=== PATIENT | female | born 1950 | race Caucasian/White ===

== ENCOUNTER 2017-01-17 17:39 | Inpatient (IN) | payer MEDICARE, MEDICAID, OTHER ==
[~2017-01-17] VITALS: Ht 157.5 cm; Wt 47.1 kg
[~2017-01-17 17:39] MED LIST: ASPI81TA11 PO; BUPR100T4 PO; FERR325T PO; FLUO-1 PO; FOSA70TA PO; GABA100C4 PO; MIDO10TA PO; MORP1TAB25 PO; PERC10TA27 PO; POTA20TA3 PO; PRAV80TA2 PO; SODI325T PO; TRAZ100T4 PO; VALA1TAB PO; shower chair
[2017-01-17 17:42] VITALS: BP 155/81; PULSE 121; RESP 15; TEMP 97.5; O2SAT 100
--- NOTE | 2017-01-17 17:51 | PD ---
HPI Chief Complaint: Abdominal Pain Time Seen by Provider: 17:51 Travel History International Travel<30 days: No Contact w/Intl Traveler<30days: No Traveled to known affect area: No History of Present Illness HPI 66-year-old female came to the emergency room with history of vomiting for 5 days along with vague abdominal pain. Patient says she is unable to hold anything down. She has an ileostomy that was done 6 months ago. Patient was tachycardic in triage with a heart rate of 121. She points out to her entire abdomen saying the location of the pain. No history of diarrhea. In fact her output from the ileostomy has been normal as per her. She describes the color of the vomitus to be brownish to greenish. PFSH Past Medical History Narrative Medical List of her past medical, social and family history was reviewed from the nursing note. Hx Anticoagulant Therapy: Yes Anxiety: Yes Depression: Yes Diminished Hearing: No Deep Vein Thrombosis: Yes Hypertension: Yes Past Surgical History Abdominal Surgery: Yes (COLOSTOMY) Hysterectomy: Yes Other Surgery: Yes (STENT IN KIDNEY ) Social History Alcohol Use: No Tobacco Use: No Substance Use: No Allergies-Medications (Allergen,Severity, Reaction): Coded Allergies: *MDRO Multi-Drug Resistant Organism (Verified Adverse Reaction, Unknown, ) MRSA PCR screen (nares) POSITIVE - 07/26/16 Comments List of allergies reviewed from the nursing note. Reported Meds & Prescriptions Reported Meds & Active Scripts Active Percocet (Oxycodone-Acetaminophen) 10-325 mg Tab 1 Tab PO Q6H PRN Midodrine 10 Mg Tab 10 Mg PO BID PRN Gabapentin 100 Mg Cap 100 Mg PO BID Sodium Bicarbonate 325 Mg Tab 325 Mg PO Q12HR Potassium Chloride Microencaps 20 Meq Tab 40 Meq PO Q12HR Ferrous Sulfate 325 Mg Tab 325 Mg PO DAILY Morphine ER (Morphine Sulfate) 30 Mg Tab 30 Mg PO BID Trazodone (Trazodone HCl) 100 Mg Tab 100 Mg PO HS [shower chair] Ut DAILY Aspirin EC (Aspirin) 81 Mg Tabdr 81 Mg PO DAILY Valacyclovir (Valacyclovir HCl) 1 Gm Tab 1,000 Mg PO BID Bupropion HCl 100 Mg Tab 100 Mg PO BID Prozac (Fluoxetine HCl) 10 Mg Cap 10 Mg PO DAILY Pravastatin 80 Mg Tab 80 Mg PO HS Reported Pravastatin 80 Mg Tab 80 Mg PO DAILY Amlodipine (Amlodipine Besylate) 10 Mg Tab 10 Mg PO DAILY Fosamax (Alendronate Sodium) 70 Mg Tab 70 Mg PO Q7D TAKES ON SUNDAYS Narrative Medication List of her home medications reviewed from the nursing note. Review of Systems Except as stated in HPI: all other systems reviewed are Neg Physical Exam Narrative GENERAL: Awake, alert, anxious, mild distress, emaciated SKIN: Warm and dry. HEAD: Atraumatic. Normocephalic. EYES: Pupils equal and round. No scleral icterus. No injection or drainage. ENT: No nasal bleeding or discharge. Dry and coated mucus membrane. NECK: Trachea midline. No JVD. CARDIOVASCULAR: Regular rate and rhythm. No murmur appreciated. RESPIRATORY: No accessory muscle use. Clear to auscultation. Breath sounds equal bilaterally. GASTROINTESTINAL: Abdomen soft, non-tender, nondistended. Hepatic and splenic margins not palpable, ileostomy MUSCULOSKELETAL: No obvious deformities. No clubbing. No cyanosis. No edema. NEUROLOGICAL: Awake and alert. No obvious cranial nerve deficits. Motor grossly within normal limits. Normal speech. PSYCHIATRIC: Appropriate mood and affect; insight and judgment normal. Data Data Last Documented VS Vital Signs Date Time Temp Pulse Resp B/P Pulse Ox O2 Delivery O2 Flow Rate FiO2 01/17/17 20:56 17 01/17/17 19:00 106 158/97 94 Room Air 01/17/17 17:42 97.5 Orders Complete Blood Count With Diff (01/17/17 18:03) Comprehensive Metabolic Panel (01/17/17 18:03) Prothrombin Time / Inr (Pt) (01/17/17 18:03) Act Partial Throm Time (Ptt) (01/17/17 18:03) Urinalysis - C+S If Indicated (01/17/17 18:03) Ct Abd/Pel W/O Iv Contrast (01/17/17 18:03) Iv Access Insert/Monitor (01/17/17 18:03) Ecg Monitoring (01/17/17 18:03) Oximetry (01/17/17 18:03) Ondansetron Inj (Zofran Inj) (01/17/17 18:15) Sodium Chlor 0.9% 1000 Ml Inj (Ns 1000 M (01/17/17 18:03) Sodium Chloride 0.9% Flush (Ns Flush) (01/17/17 18:15) Morphine Inj (Morphine Inj) (01/17/17 18:15) Lactic Acid (01/17/17 18:03) Blood Culture (01/17/17 18:03) Sodium Chlor 0.9% 1000 Ml Inj (Ns 1000 M (01/17/17 19:15) Oxycodone-Acetamin 7.5-325 Mg (Percocet (01/17/17 21:45) Admit Order (Ed Use Only) (01/17/17 21:36) Labs Laboratory Tests Test 01/17/17 01/17/17 19:00 19:30 Sodium Level 136 MEQ/L Potassium Level 3.8 MEQ/L Chloride Level 114 MEQ/L Carbon Dioxide Level 8.8 MEQ/L Anion Gap 13 MEQ/L Blood Urea Nitrogen 62 MG/DL Creatinine 3.25 MG/DL Estimat Glomerular Filtration 14 ML/MIN Rate Random Glucose 134 MG/DL Calcium Level 8.9 MG/DL Total Bilirubin 0.4 MG/DL Aspartate Amino Transf 7 U/L (AST/SGOT) Alanine Aminotransferase 14 U/L (ALT/SGPT) Alkaline Phosphatase 118 U/L Troponin I 0.02 NG/ML Total Protein 9.0 GM/DL Albumin 4.7 GM/DL Lipase 724 U/L White Blood Count 16.4 TH/MM3 Red Blood Count 5.24 MIL/MM3 Hemoglobin 16.4 GM/DL Hematocrit 53.9 % Mean Corpuscular Volume 102.9 FL Mean Corpuscular Hemoglobin 31.3 PG Mean Corpuscular Hemoglobin 30.4 % Concent Red Cell Distribution Width 16.6 % Platelet Count 275 TH/MM3 Mean Platelet Volume 8.6 FL Neutrophils (%) (Auto) 85.7 % Lymphocytes (%) (Auto) 9.4 % Monocytes (%) (Auto) 4.8 % Eosinophils (%) (Auto) 0.0 % Basophils (%) (Auto) 0.1 % Neutrophils # (Auto) 14.0 TH/MM3 Lymphocytes # (Auto) 1.5 TH/MM3 Monocytes # (Auto) 0.8 TH/MM3 Eosinophils # (Auto) 0.0 TH/MM3 Basophils # (Auto) 0.0 TH/MM3 CBC Comment DIFF FINAL Differential Comment Prothrombin Time 10.6 SEC Prothromb Time International 1.0 RATIO Ratio Activated Partial 24.6 SEC Thromboplast Time Lactic Acid Level 2.0 mmol/L MDM Medical Decision Making Medical Screen Exam Complete: Yes Emergency Medical Condition: Yes Medical Record Reviewed: Yes Differential Diagnosis Small bowel obstruction, acute gastritis, acute gastroenteritis, electrolyte abnormalities, dehydration Narrative Course 7:12 PM awaiting for the blood test result. The CAT scan was done and resulted. Does not show any small bowel obstruction. I suspect severe dehydration. Case has been signed over to the oncoming ER physician. Procedures EKG Prior to Arrival: Denise Wright MD Jan 17, 2017 17:51
[2017-01-17] MEDS ORDERED: SODIUM CHLOR 0.9% 1000 ML INJ 1,000 ML IV SCH (18:03)
[2017-01-17] MEDS ORDERED: MORPHINE SULFATE 4 MG/ML INJ IV PUSH ONE (18:15)
[2017-01-17] MEDS ORDERED: ONDANSETRON HCL 4 MG/2 ML VIAL IVP ONE (18:15)
[2017-01-17] MEDS ORDERED: SODIUM CHLORIDE 0.9% FLUSH 5 ML FLUSH IVF PRN (18:15)
[2017-01-17 19:00] VITALS: BP 158/97; PULSE 106; RESP 13; RESP 17; O2SAT 94
--- NOTE | 2017-01-17 19:01 | RADRPT ---
EXAM DATE/TIME: 01/17/2017 18:13 [facility] COMPARISON: No previous studies available for comparison. INDICATIONS : Abdomen pain. ORAL CONTRAST: No oral contrast ingested. RADIATION DOSE: 9.96 CTDIvol (mGy) MEDICAL HISTORY : Deep venous thrombosis. Chronic obstructive pulmonary disease. Renal disease. SURGICAL HISTORY : Appendectomy. Hysterectomy.Colostomy. ENCOUNTER: Initial ACUITY: 4 - 6 days PAIN SCALE: 5/10 LOCATION: Bilateral abdomen. TECHNIQUE: Volumetric scanning of the abdomen and pelvis was performed. Using automated exposure control and ad justment of the mA and/or kV according to patient size, radiation dose was kept as low as reasonably achievable to obtain optimal diagnostic quality images. FINDINGS: Compare July 2016. Lung bases remain clear except for minimal linear scarring. Advanced degenera tive change in lumbar spine with a mild rotatory levoscoliosis. Stable compression deformity at L1. Again seen is some cystic change in the liver. Spleen, adrenals and pancreas unremarkable. Previous c holecystectomy. Extensive bilateral nephrocalcinosis again noted with an atrophic left kidney. There is an ostomy in the right lower quadrant. Staple line present in the rectum. No bowel obstructi on. No free air or free fluid. CONCLUSION: 1. No acute findings compared with July 2016. No obstruction, free fluid or free air. Ostomy rig ht lower quadrant. Jerald Lau MD on January 17, 2017 at 18:53 Board Certified Radiologist. This report was verified electronically.
[2017-01-17] MEDS ORDERED: AMLO10TA2 PO (19:10)
[2017-01-17] MEDS ORDERED: PRAV80TA2 PO (19:10)
[2017-01-17] MEDS ORDERED: SODIUM CHLOR 0.9% 1000 ML INJ 1,000 ML IV ONE (19:15)
[2017-01-17 19:33] LABS: ANION GAP 13 MEQ/L (5-15); AST (GOT) 7 U/L (15-37); BICARBONATE 8.8 MEQ/L (21.0-32.0); BLOOD UREA NITROGEN 62 MG/DL (7-18); CHLORIDE 114 MEQ/L (98-107); GLOMERULAR FILTRATION RATE 14 ML/MIN (>89); POTASSIUM 3.8 MEQ/L (3.5-5.1); SODIUM (NA) 136 MEQ/L (136-145)
[2017-01-17 19:36] LABS: ALKALINE PHOSPHATASE 118 U/L (45-117); ALT (GPT) 14 U/L (10-53); TOTAL BILIRUBIN ADULT 0.4 MG/DL (0.2-1.0)
[2017-01-17 19:43] LABS: BASOPHIL % 0.1 % (0.0-2.0); HEMATOCRIT 53.9 % (35.0-46.0); HEMO FLAGS DIFF FINAL; LYMPH % 9.4 % (9.0-44.0); LYMPHOCYTE # 1.5 TH/MM3 (1.0-4.8); MEAN CELL VOLUME 102.9 FL (80.0-100.0); MEAN CORPUSCULAR HEMOGLOBIN 31.3 PG (27.0-34.0); MEAN CORPUSCULAR HGB CONC 30.4 % (32.0-36.0); MONO % 4.8 % (0.0-8.0); NEUT % 85.7 % (16.0-70.0); PLATELET COUNT 275 TH/MM3 (150-450); RED BLOOD COUNT 5.24 MIL/MM3 (4.00-5.30); RED CELL DISTRIBUTION WIDTH 16.6 % (11.6-17.2); WHITE BLOOD COUNT 16.4 TH/MM3 (4.0-11.0)
[2017-01-17 20:04] LABS: APTT (PATIENT) 24.6 SEC (24.3-30.1); PROTHROMBIN TIME - PATIENT 10.6 SEC (9.8-11.6)
--- NOTE | 2017-01-17 21:44 | PD ---
Data Data Last Documented VS Vital Signs Date Time Temp Pulse Resp B/P Pulse Ox O2 Delivery O2 Flow Rate FiO2 01/17/17 20:56 17 01/17/17 19:00 106 158/97 94 Room Air 01/17/17 17:42 97.5 Orders Complete Blood Count With Diff (01/17/17 18:03) Comprehensive Metabolic Panel (01/17/17 18:03) Prothrombin Time / Inr (Pt) (01/17/17 18:03) Act Partial Throm Time (Ptt) (01/17/17 18:03) Urinalysis - C+S If Indicated (01/17/17 18:03) Ct Abd/Pel W/O Iv Contrast (01/17/17 18:03) Iv Access Insert/Monitor (01/17/17 18:03) Ecg Monitoring (01/17/17 18:03) Oximetry (01/17/17 18:03) Ondansetron Inj (Zofran Inj) (01/17/17 18:15) Sodium Chlor 0.9% 1000 Ml Inj (Ns 1000 M (01/17/17 18:03) Sodium Chloride 0.9% Flush (Ns Flush) (01/17/17 18:15) Morphine Inj (Morphine Inj) (01/17/17 18:15) Lactic Acid (01/17/17 18:03) Blood Culture (01/17/17 18:03) Sodium Chlor 0.9% 1000 Ml Inj (Ns 1000 M (01/17/17 19:15) Oxycodone-Acetamin 7.5-325 Mg (Percocet (01/17/17 21:45) Labs Laboratory Tests Test 01/17/17 01/17/17 19:00 19:30 White Blood Count 16.4 TH/MM3 Red Blood Count 5.24 MIL/MM3 Hemoglobin 16.4 GM/DL Hematocrit 53.9 % Mean Corpuscular Volume 102.9 FL Mean Corpuscular Hemoglobin 31.3 PG Mean Corpuscular Hemoglobin 30.4 % Concent Red Cell Distribution Width 16.6 % Platelet Count 275 TH/MM3 Mean Platelet Volume 8.6 FL Neutrophils (%) (Auto) 85.7 % Lymphocytes (%) (Auto) 9.4 % Monocytes (%) (Auto) 4.8 % Eosinophils (%) (Auto) 0.0 % Basophils (%) (Auto) 0.1 % Neutrophils # (Auto) 14.0 TH/MM3 Lymphocytes # (Auto) 1.5 TH/MM3 Monocytes # (Auto) 0.8 TH/MM3 Eosinophils # (Auto) 0.0 TH/MM3 Basophils # (Auto) 0.0 TH/MM3 CBC Comment DIFF FINAL Differential Comment Sodium Level 136 MEQ/L Potassium Level 3.8 MEQ/L Chloride Level 114 MEQ/L Carbon Dioxide Level 8.8 MEQ/L Anion Gap 13 MEQ/L Blood Urea Nitrogen 62 MG/DL Creatinine 3.25 MG/DL Estimat Glomerular Filtration 14 ML/MIN Rate Random Glucose 134 MG/DL Calcium Level 8.9 MG/DL Total Bilirubin 0.4 MG/DL Aspartate Amino Transf 7 U/L (AST/SGOT) Alanine Aminotransferase 14 U/L (ALT/SGPT) Alkaline Phosphatase 118 U/L Total Protein 9.0 GM/DL Albumin 4.7 GM/DL Prothrombin Time 10.6 SEC Prothromb Time International 1.0 RATIO Ratio Activated Partial 24.6 SEC Thromboplast Time Lactic Acid Level 2.0 mmol/L [facility] Medical Record Reviewed: Yes Supervised Visit with DASHA: No Narrative Course CBC & BMP Diagram 01/17/17 19:00 LFTs normal Lactic acid 2.0 Coags 10.6 / 1.0 / 24.6 Last 24 hours Impressions Abdomen/Pelvis CT 01/17/17 1803 Signed Impressions: Service Date/Time: Tuesday, January 17, 2017 18:13 - CONCLUSION: 1. No acute findings compared with July 2016. No obstruction, free fluid or free air. Ostomy right lower quadrant. Jeradl Lau MD Patient has acute on chronic renal insufficiency. She'll be admitted for treatment of kidney disease of indeterminate etiology right now. Urinalysis at time of admission is not yet available. Patient admitted to the family medicine service. D/w Dr Carreon. Admit to Dr Solomon. Pt asked for percocet or morphine upon reassessment at 930pm by me; the former was ordered. Pt otherwise appeared reasonably stable. Diagnosis Primary Impression: Acute on chronic renal insufficiency Additional Impressions: Prerenal azotemia Nausea & vomiting Qualified Code: R11.2 - Non-intractable vomiting with nausea, unspecified vomiting type Admitting Information Admitting Physician Requests: Admit Ervin Quiroz MD Jan 17, 2017 21:44
[2017-01-17] MEDS ORDERED: oxyCODONE/ACETAMINOPHEN 7.5 MG/325 MG TAB PO ONE (21:45)
--- NOTE | 2017-01-17 21:50 | HHI.HP ---
HPI Service Family Medicine Primary Care Physician Non-Staff Admission Diagnosis Acute on Chronic Renal Failure; N/V Diagnoses: International Travel<30 Days: No Contact w/Intl Traveler<30days: No Known Affected Area: No History of Present Illness Mrs. Walker is a pleasant 66 y/o female, who presents to [facility] with 6 days of nausea and vomiting (Thursday01/10/2017). Her symptoms started with generalized fatigue. Then, gradually became nauseous over the next several days. Her first episode of emesis was 6 days ago. During the beginning of her symptoms, she was vomiting 2-3 x per day. The emesis was described as clear and green in color. She reports small amounts of emesis since this time. For a couple of days she did not vomit but did feel nauseous, and had dry heaves. She has a colostomy bag, and this has been causing her discomfort for 6 months. This pain has been getting worse over the past several weeks. Her current abdominal pain is located over her umbilicus, and suprapubic. The pain is a 8/ 10 pain, constant. During the past 6 days she reports difficulty even drinking fluids. She denies using antibiotics recently. ROS: Fevers (subjective, chills+), sometimes gets blurry vision, nasal congestion, less frequent urination. Denies sore throat, shortness of breath, chest pain, headaches, no palpitations , no dysuria, no unilateral weakness or numbness, denies rashes. She denies pets. David the outreach representative of the house has not felt well. Stool output -- some today, minimal non bloody. Bad food -- denies. Ever happen before -- denies. No new medications. (Augusto Glass MD R2) Review of Systems Other as per HPI (Augusto Glass MD R2) Past Family Social History Past Medical History PMH: Degenerative disc disease Recent infection with shingles (02/2015) Chronic renal insufficiency related to frequent episodes of pyelonephritis HTN Hx PID when she was in her 20s Nephrolithiasis PSH: Corrective strabismus surgery at 4yo Tonsillectomy Appendectomy D&C after miscarriage in high school Hysterectomy to treat severe PID Nephrostomy tube placement and removal FH: paternal mother from unknown cancer in 50s mother and maternal aunt from unknown cancer in 50s brother from unknown cancer 54yo SocHx: Prior tobacco use: started at 15yo (smoked 3ppd) until Sep 2011 No alcohol use. No drug use. No children. (Augusto Glass MD R2) Allergies: Coded Allergies: *MDRO Multi-Drug Resistant Organism (Verified Adverse Reaction, Unknown, ) MRSA PCR screen (nares) POSITIVE - 07/26/16 Physical Exam Vital Signs Vital Signs Date Time Temp Pulse Resp B/P Pulse Ox O2 Delivery O2 Flow Rate FiO2 01/17/17 20:56 17 01/17/17 19:00 106 13 158/97 94 Room Air 01/17/17 19:00 17 94 Room Air 01/17/17 17:42 97.5 121 15 155/81 100 Physical Exam GENERAL: Pale-appearing, fatigued, however alert and oriented to person place and time. SKIN: Possible eschars on her lower extremities, skin intact, no sacral ulcers. HEAD: Extraocular eye movements were intact, pupils are equal round and reactive , no tenderness to the scalp, no tenderness to C-spine. EYES: Pupils equal round and reactive. Extraocular motions intact. No scleral icterus. No injection or drainage. ENT: Very dry mucous membranes, no erythema or exudates on pharyngeal exam. CARDIOVASCULAR: Faint heart sounds, tachycardic, regular rate, faint murmur over right sternal border. RESPIRATORY: Clear to auscultation. Breath sounds equal bilaterally. No wheezes , rales, or rhonchi. GASTROINTESTINAL: Ileostomy bag in place over the right upper quadrant. Surrounding skin was intact without erythema. No warmth surrounding the ostomy bag. Approximately 50 cc of output. Her stomach was diffusely tender, however had no rebound tenderness or voluntary/involuntary guarding. NEUROLOGICAL: Awake and alert. Cranial nerves II through XII intact. Motor and sensory grossly within normal limits. Five out of 5 muscle strength in all muscle groups. Normal speech. Laboratory Laboratory Tests Test 01/17/17 01/17/17 19:00 19:30 White Blood Count 16.4 Red Blood Count 5.24 Hemoglobin 16.4 Hematocrit 53.9 Mean Corpuscular Volume 102.9 Mean Corpuscular Hemoglobin 31.3 Mean Corpuscular Hemoglobin 30.4 Concent Red Cell Distribution Width 16.6 Platelet Count 275 Mean Platelet Volume 8.6 Neutrophils (%) (Auto) 85.7 Lymphocytes (%) (Auto) 9.4 Monocytes (%) (Auto) 4.8 Eosinophils (%) (Auto) 0.0 Basophils (%) (Auto) 0.1 Neutrophils # (Auto) 14.0 Lymphocytes # (Auto) 1.5 Monocytes # (Auto) 0.8 Eosinophils # (Auto) 0.0 Basophils # (Auto) 0.0 CBC Comment DIFF FINAL Differential Comment Sodium Level 136 Potassium Level 3.8 Chloride Level 114 Carbon Dioxide Level 8.8 Anion Gap 13 Blood Urea Nitrogen 62 Creatinine 3.25 Estimat Glomerular Filtration 14 Rate Random Glucose 134 Calcium Level 8.9 Total Bilirubin 0.4 Aspartate Amino Transf 7 (AST/SGOT) Alanine Aminotransferase 14 (ALT/SGPT) Alkaline Phosphatase 118 Total Protein 9.0 Albumin 4.7 Prothrombin Time 10.6 Prothromb Time International 1.0 Ratio Activated Partial 24.6 Thromboplast Time Lactic Acid Level 2.0 Date/Time Procedure Status Source Growth 01/17/17 19:30 Aerobic Blood Culture Received Blood Peripheral Pending 01/17/17 19:30 Anaerobic Blood Culture Received Blood Peripheral Pending (Augusto Glass MD R2) Result Diagram: 01/17/17 1900 01/17/17 1900 Imaging Last 72 hours Impressions Abdomen/Pelvis CT 01/17/17 1803 Signed Impressions: Service Date/Time: Tuesday, January 17, 2017 18:13 - CONCLUSION: 1. No acute findings compared with July 2016. No obstruction, free fluid or free air. Ostomy right lower quadrant. Jerald Lau MD (Augusto Glass MD R2) Septic Shock Reassessment Heart: Regular rate and rhythm (Augusto Glass MD R2) Assessment and Plan Assessment and Plan Ms. Rogers is a very pleasant 66-year-old female, presenting with 6 days of abdominal pain, nausea, and persistent vomiting. On admission she was found to be in acute renal failure, with a creatinine of 3.25 (baseline 1.5). The lipase level was also elevated at 724 and she had a leukocytosis of 16.4 thousand. She received 2 L of IV fluid, 4 mg IV morphine, and an abdominal CT that was unremarkable. She will be admitted to the family medicine team B, with a presumptive diagnosis of pancreatitis, gastroenteritis, as well as acute on chronic renal failure. Code Status Full Code (Augusto Glass MD R2) Attending Attestation The patient has been seen and examined. The chart and all resident notes have been reviewed. I agree that inpatient care is appropriate and that a two midnight stay is expected for the reasons documented in the resident history and physical. I have discussed this with the resident and certify the resident s order for inpatient admission. All systems reviewed and neg except as stated. Patient seen and examined on 01/18/17. Case reviewed and discussed with the resident team. Please refer to resident H&P for further details regarding HPI, ROS, PMH, SurgHx , FH and SocHx. In summary, patient is a 66yoF with multiple medical comorbidities including history of complicated diverticulitis requiring ileostomy placement, multiple admissions for severe electrolyte disturbances and hyperchloremic metabolic acidosis suspected to secondary to loss through the ileostomy, DVT secondary due to anti-phospholipid antibody syndrome, chronic kidney disease stage III now admitted with severe electrolyte disturbance and acidosis. Patients presentation to the hospital was preceded by nearly a week of nausea and vomiting with progressive weakness. GENERAL: Thin female, appearing weak, older than stated age. SKIN: Warm and dry. No rash HEAD: Normocephalic. AT EYES: No scleral icterus. No injection or drainage. ENT: OP clear. MM slightly dry NECK: Supple, trachea midline. No JVD or lymphadenopathy. CARDIOVASCULAR: Regular rate and rhythm without murmurs, gallops, or rubs. RESPIRATORY: Breath sounds equal bilaterally. No accessory muscle use. GASTROINTESTINAL: Abdomen soft, non-tender, nondistended. Ileostomy in place MUSCULOSKELETAL: No cyanosis, or edema. No calf tenderness BACK: Nontender without obvious deformity. No CVA tenderness. NEURO: Awake and alert. Normal speech. CN grossly intact. Last Impressions Head CT 01/17/173 Signed Impressions: Service Date/Time: Tuesday, January 17, 2017 23:21 - CONCLUSION: No evidence of acute intracranial pathology. No masses are identified. Sushant Woods MD Abdomen/Pelvis CT 01/17/17 1803 Signed Impressions: Service Date/Time: Tuesday, January 17, 2017 18:13 - CONCLUSION: 1. No acute findings compared with July 2016. No obstruction, free fluid or free air. Ostomy right lower quadrant. Jerald Lau MD Chest X-Ray 01/17/17 0000 Signed Impressions: Service Date/Time: Wednesday, January 18, 2017 00:20 - CONCLUSION: 1. No acute cardiopulmonary disease. 2. Possible nodule left midlung. CT scan is recommended for further evaluation if clinically indicated. Sushant Woods MD 66yoF admitted with: Severe acidosis, hyperchloremic metabolic Intractable N/V Complicated diverticulitis requiring ileostomy Anti-phospholipid antibody syndrome with DVT HTN with recent hypotension Chronic pain Depression Tobacco Dependence, now in remission Falls at home COPD Plan: IVF resuscitation Empiric antibiotic therapy Serial BMPs Replete electrolytes as needed Renal ultrasound Appreciate expertise of consultants. Follow urine culture and blood cultures Resume home meds as appropriate Patient seen and examined. Case reviewed and discussed Agree with plan of care as discussed with me and documented in the resident note. (Ana Solomon MD) Problem List: (1) Nausea Status: Acute Plan: Patient was 6 days of persistent nausea, clear, bilious emesis. CT of the abdomen showed: "No acute findings compared with July 2016." Lipase was elevated at 724. A likely diagnosis at this time includes pancreatitis, gastroenteritis (viral versus bacterial), subdural hematoma/head trauma, urinary tract infection/intra-abdominal infection. PLAN: -Aggressive IV rehydration: Has gotten 2 L bolus normal saline, we will start 1.5 times maintenance 135 ml/hr NS. Recent echo in June 2016 showed an EF of 55%. -Pain relief with morphine 2 mg every 3 hours pain 1-5, Dilaudid 0.5 mg pain 6-10 (at home she gets 60 mg of morphine daily, as well as 40 mg of Oxycodone -- > equivalent would be 6 mg IV Dilaudid daily). We will be cautious given her acute on chronic kidney disease. -Treat with empiric antibiotics with ciprofloxacin (renally dosed) (01/17 --) , and Flagyl (01/17 --) -NPO -Stool studies -Repeat lactic acid every 4 hours, repeat BMP every 4 hours. As well as a venous blood gas 1. -CT of the head is pending, given recent fall approximately 1 and 1/2 weeks ago. (2) COPD (chronic obstructive pulmonary disease) Status: Chronic Plan: Albuterol 2.5 mg inhaler q 2 hr prn (3) KANDIS (acute kidney injury) Status: Acute Plan: Baseline creatinine level was 1.3-1.5 in September 2016. Creatinine on admission was 3.25, with a BUN of 62. Suspect severe dehydration given persistent vomiting, and acute on chronic renal failure. Repeat BMP in 4 hours after 2 L bolus. Suspect that the kidney function will improve. (4) Osteoporosis Status: Chronic Plan: Hold bisphosphonate therapy at this time. Will restart once tolerating by mouth therapy. Fall precautions in place. (5) Depression Status: Chronic Plan: Bupropion 100 mg tablets twice a day, Prozac 10 mg daily, as well as her trazodone 100 mg daily at bedtime. (6) HTN (hypertension) Status: Chronic Plan: Pressure elevated on initial exam to 168/80. Will treat with clonidine 0.1 mg tablets every 6 hours blood pressure greater than 180/90. Hydralazine 10 mg IV push every hour when necessary blood pressure greater than 160/90. (7) Physical deconditioning Status: Acute Plan: Consult physical therapy went over acute illness, may need to go to a assisted living facility upon discharge. Case management consult. (8) Diffuse abdominal pain Status: Acute Plan: As above. (9) Nausea & vomiting Status: Acute Plan: Zofran 4 mg IV every 6 hours when necessary nausea/vomiting. Follow-up the QT ratio on EKG. (10) Ileostomy in place Status: Acute Plan: Surrounding tissue was without erythema or drainage. Patient reports daily output, that has been reduced. We will change ostomy bag and monitor output. (11) FEN/ppx Status: Chronic Plan: 135 ML's per hour normal saline. Repeat BMP every 4 hours 2. Nothing by mouth Electrolytes grossly within normal limits, besides a bicarbonate of 8.8, suggestive of a non-anion gap metabolic acidosis. Most likely secondary from GI loss. We will go forward in getting a venous blood gas to assess severity of acidemia. (12) Acute on chronic renal insufficiency Status: Acute Plan: Aggressive hydration, would consider an ultrasound of kidneys ureter and bladder to rule out obstructive uropathy. GEORGIE SIMMONSW Dr. Solomon. (Augusto Glass MD R2) Physician Certification 2 Midnight Certification Type: Admission for Inpatient Services Order for Inpatient Services The services are ordered in accordance with Medicare regulations or non- Medicare payer requirements, as applicable. In the case of services not specified as inpatient-only, they are appropriately provided as inpatient services in accordance with the 2-midnight benchmark. Estimated LOS (days): 2 2 days is the estimated time the patient will need to remain in the hospital, assuming treatment plan goals are met and no additional complications. Post-Hospital Plan: Not yet determined (Augusto Glass MD R2) Problem Qualifiers (1) Nausea & vomiting: Qualified Code: R11.2 - Non-intractable vomiting with nausea, unspecified vomiting type Augusto Glass MD R2 Jan 17, 2017 21:49 Ana Solomon MD Jan 18, 2017 16:10
[2017-01-17] MEDS ORDERED: HYDROmorphone HCL PF 1 MG/ML VIAL IV PRN (22:30)
[2017-01-17] MEDS ORDERED: Custom Consult Pharmacy 1 EA OTHER SCH (22:30)
[2017-01-17 23:00] VITALS: BP 148/72; PULSE 98; RESP 16; O2SAT 96
[2017-01-17] MEDS: metroNIDAZOLE 500 MG INJ 100 ML IV SCH (23:05)
[2017-01-17] MEDS: SODIUM CHLOR 0.9% 1000 ML INJ 1,000 ML IV SCH (23:05)
[2017-01-17 23:10] VITALS: O2SAT 96
[2017-01-17] MEDS ORDERED: hydrALAZINE HCL 20 MG/ML VIAL IV PUSH PRN (23:15)
[2017-01-17] MEDS ORDERED: MORPHINE SULFATE 4 MG/ML INJ IV PRN (23:15)
[2017-01-17 23:42] LABS: BACTERIA, URINE MANY /hpf; BLOOD, URINE MOD (NEG); COMMENT (UR) CULTURE INDICATED; CULTURE IF INDICATED CULTURE INDICATED; GLUCOSE,URINE NEG (NEG); KETONE, URINE NEG (NEG); MUCUS URINE FEW /lpf (OCC); NITRITE,URINE NEG (NEG); SQUAMOUS EPITHELIAL CELL URINE <1 /hpf (0-5); URINE COLOR YELLOW (YELLW/STRAW)
[2017-01-17] MEDS ORDERED: cloNIDine HCL 0.1 MG TAB PO PRN (23:45)
--- NOTE | 2017-01-17 23:58 | RADRPT ---
EXAM DATE/TIME: 01/17/2017 23:21 [facility] COMPARISON: No previous studies available for comparison. INDICATIONS : General weakness. RADIATION DOSE: 32.73 CTDIvol (mGy) MEDICAL HISTORY : Hypertension. Deep venous thrombosis. Chronic obstructive pulmonary disease. SURGICAL HISTORY : Colostomy. Appendectomy.Hysterectomy. ENCOUNTER: Initial ACUITY: 1 day PAIN SCALE: 0/10 LOCATION: cranial TECHNIQUE: Multiple contiguous axial images were obtained of the head. Using automated exposure control and adj ustment of the mA and/or kV according to patient size, radiation dose was kept as low as reasonably a chievable to obtain optimal diagnostic quality images. FINDINGS: CEREBRUM: The ventricles are normal for age. No evidence of midline shift, mass lesion, hemorrhage or acute in farction. No extra-axial fluid collections are seen. POSTERIOR FOSSA: The cerebellum and brainstem are intact. The 4th ventricle is midline. The cerebellopontine angle i s unremarkable. EXTRACRANIAL: The visualized portion of the orbits is intact. SKULL: The calvaria is intact. No evidence of skull fracture. CONCLUSION: No evidence of acute intracranial pathology. No masses are identified. Sushant Woods MD on January 17, 2017 at 23:56 Board Certified Radiologist. This report was verified electronically.
[2017-01-18] MEDS ORDERED: CIPROFLOXACIN 400 MG PREMIX 200 ML IV SCH ×3
[2017-01-18] MEDS ORDERED: RESP: ALBUTEROL 2.5 MG/3 ML NEB (PRN) INH (00:15)
[2017-01-18 00:16] LABS: BICARBONATE 9.7 MEQ/L (21.0-32.0); TOTAL BILIRUBIN ADULT 0.3 MG/DL (0.2-1.0)
[2017-01-18 00:17] LABS: POTASSIUM 5.4 MEQ/L (3.5-5.1)
[2017-01-18 00:18] LABS: CALCIUM-PROTEIN CORRECTED 7.1 MG/DL (8.5-10.1)
--- NOTE | 2017-01-18 00:59 | RADRPT ---
EXAM DATE/TIME: 01/18/2017 00:20 [facility] COMPARISON: CHEST SINGLE AP, July 25, 2016, 5:50. CHEST SINGLE AP, October 02, 2016, 13:05. INDICATIONS : Shortness of breath. MEDICAL HISTORY : Chronic obstructive pulmonary disease. SURGICAL HISTORY : None. ENCOUNTER: Initial ACUITY: 1 day PAIN SCORE: 0/10 LOCATION: Bilateral chest FINDINGS: The cardiac silhouette is normal in transverse diameter. The lungs are free of acute parenchymal opac ity. No effusions are identified. There is a questionable 8mm nodule in the left midlung. CT scan is recommended for further evaluation if clinically indicated. This can be performed on an elective basi s. CONCLUSION: 1. No acute cardiopulmonary disease. 2. Possible nodule left midlung. CT scan is recommended for further evaluation if clinically indicate d. Sushant Woods MD on January 18, 2017 at 0:55 Board Certified Radiologist. This report was verified electronically.
[2017-01-18 01:58] LABS: LDH SERUM 465 U/L (84-246)
[2017-01-18] MEDS ORDERED: CALCIUM GLUCONATE 10% 1 GM/10 ML VIAL IV ONE (02:00)
[2017-01-18] MEDS ORDERED: RESP: ALBUTEROL CONC 2.5 MG/0.5 ML NEB INH ONE (02:00)
[2017-01-18 02:27] LABS: BLOOD GAS VENOUS BASE EXCESS -23.1 mmol/L (-2-2); BLOOD GAS VENOUS HCO3 5 mmol/L (22-26); BLOOD GAS VENOUS O2 HGB SAT 56 % (70-76); BLOOD GAS VENOUS PCO2 15 mmHg (44-48); BLOOD GAS VENOUS PO2 30 mmHg (35-40); BLOOD GAS VENOUS pH 7.12 (7.360-7.400); TEMP CORR TO 98.6
[2017-01-18 02:28] LABS: CRITICAL VALUE YES; FIO2 21 %; OXYGEN DEVICE ROOM AIR
[2017-01-18 02:29] LABS: STAT NO
[2017-01-18] MEDS ORDERED: CALCIUM CHLORIDE 10% SOLN 1 GRAM/10 ML SYR IV PUSH ONE (02:30)
[2017-01-18] MEDS ORDERED: SODIUM BICARB 4.2% (INF) INJ 5 MEQ/10 ML SYR IV PUSH ONE (02:30)
[2017-01-18] MEDS ORDERED: SODIUM POLYSTYRENE SULFONATE SUSP 15 GM/60 ML CUP PO ONE (02:45)
--- NOTE | 2017-01-18 03:08 | HHI.FPPN ---
Addendum to progress note ADDENDUM Reason for addendum: Additonal documentation Additional information New Clinical information since admission: Vital Signs: Afebrile, BP 148/72, HR 98, RR 16, Pulse Ox 96% on r.a. Calcium decreased from 8.9 --> 7.1 (albumin corrected). Potassium went from 3.4 --> 5.4 since admission. Venous BG showed a pH of 7.12. Bicarb improved from 8.8 --> 9.7. BUN/Cr: improved from 62/3.25 --> 51/2.42. Lactic acid remained stable at 2.0. Given significant changes in electrolytes and pH, with the help of intensive care a following plan was developed: -Give 2 g of CaCl IV -Give 1 amp of bicarb IV push, followed by a bicarb infusion. -Start Kayexalate, Albuterol nebulizer treatment, for hyperkalemia. -Recheck CMP and CBC in 3 hrs at 0600. Called nursing staff in [facility] to make them aware of the patient's critical condition and the need for electrolyte replacement and EKG. They were in understanding and had no questions. wdw Dr. Solomon. (Augusto Glass MD R2) Augusto Glass MD R2 Jan 18, 2017 03:08 Ana Solomon MD Jan 18, 2017 15:55
[2017-01-18] MEDS: SODIUM BICARBONATE 8.4% INJ 100 MEQ in SODIUM CHLOR 0.9% 1000 ML INJ 1,000 ML IV SCH ×2 (03:31→21:20)
[2017-01-18 04:28] LABS: BASOPHIL % 0.2 % (0.0-2.0); EOSINOPHIL % 0.1 % (0.0-4.0); HEMATOCRIT 36.3 % (35.0-46.0); HEMO FLAGS DIFF FINAL; LYMPH % 18.4 % (9.0-44.0); LYMPHOCYTE # 2.3 TH/MM3 (1.0-4.8); MEAN CELL VOLUME 97.9 FL (80.0-100.0); MEAN CORPUSCULAR HGB CONC 32.6 % (32.0-36.0); MONO % 7.5 % (0.0-8.0); NEUT % 73.8 % (16.0-70.0); PLATELET COUNT 172 TH/MM3 (150-450); RED BLOOD COUNT 3.71 MIL/MM3 (4.00-5.30); RED CELL DISTRIBUTION WIDTH 15.8 % (11.6-17.2); WHITE BLOOD COUNT 12.2 TH/MM3 (4.0-11.0)
[2017-01-18 04:43] VITALS: BP 141/89; PULSE 84; RESP 18; TEMP 97.7; O2SAT 97
[2017-01-18 05:28] VITALS: PULSE 94
[2017-01-18] MEDS: SODIUM CHLOR 0.9% 1000 ML INJ 1,000 ML IV SCH (06:02)
[2017-01-18] MEDS: metroNIDAZOLE 500 MG INJ 100 ML IV SCH (06:03)
[2017-01-18] MEDS: ONDANSETRON HCL 4 MG/2 ML VIAL IV PRN ×2 (08:00→21:25)
[2017-01-18 08:45] LABS: ALKALINE PHOSPHATASE 83 U/L (45-117); ALT (GPT) 11 U/L (10-53); AST (GOT) 10 U/L (15-37); BLOOD UREA NITROGEN 43 MG/DL (7-18); CALCIUM-PROTEIN CORRECTED 9.2 MG/DL (8.5-10.1); CHLORIDE 123 MEQ/L (98-107); GLOMERULAR FILTRATION RATE 23 ML/MIN (>89); SODIUM (NA) 145 MEQ/L (136-145); TOTAL BILIRUBIN ADULT 0.3 MG/DL (0.2-1.0)
[2017-01-18 08:46] LABS: ANION GAP 13 MEQ/L (5-15); BICARBONATE 9.5 MEQ/L (21.0-32.0)
[2017-01-18 09:15] LABS: C. DIFF EPI 027 PRESUMPTIVE NEGATIVE (NEGATIVE); C. DIFF TOXIN PCR NEGATIVE (NEGATIVE)
[2017-01-18 09:17] LABS: BLOOD GAS BASE EXCESS -18.7 mmol/L (-2-2); BLOOD GAS CARBOXYHEMOGLOBIN 1.6 % (0-4); BLOOD GAS HCO3 7 mmol/L (22-26); BLOOD GAS O2 HGB SATURATION 95 % (90-100); BLOOD GAS OXYGEN CONTENT 15.8 Vol % (12.0-20.0); BLOOD GAS PCO2 17 mmHg (38-42); BLOOD GAS PO2 114 mmHG (61-120); BLOOD GAS TOTAL HGB 11.7 G/DL (12.0-16.0); CRITICAL VALUE YES; DRAW SITE RT RADIAL; FIO2 21 %; NUMBER OF ARTERIAL PUNCTURES 1; STAT NO; TEMP CORR TO 98.6; ULNAR PULSE PRESENT
--- NOTE | 2017-01-18 09:50 | HHI.FPPN ---
Subjective Remarks Patient reports one episode of vomiting since being in the emergency department. Patient has been afebrile with blood pressure ranging from 141-158/ 89-97, pulse has ranged from 84-121, respiratory rate range from 13-18, pulse ox 94-100% on room air. Patient complains of nausea, abdominal discomfort, weakness, feeling cold. She denies any fevers, dysuria, increased ostomy output , back pain. (Oc Villalobos MD R1) Objective Vitals Vital Signs Date Time Temp Pulse Resp B/P Pulse Ox O2 Delivery O2 Flow Rate FiO2 01/18/17 05:28 94 01/18/17 04:43 97.7 84 18 141/89 97 01/17/17 23:10 96 01/17/17 23:00 98 16 148/72 96 Room Air 01/17/17 20:56 17 01/17/17 19:00 106 13 158/97 94 Room Air 01/17/17 19:00 17 94 Room Air 01/17/17 17:42 97.5 121 15 155/81 100 (Oc Villalobos MD R1) Result Diagram: 01/18/17 0408 01/18/17 0803 Imaging Last Impressions Head CT 01/17/17 2223 Signed Impressions: Service Date/Time: Tuesday, January 17, 2017 23:21 - CONCLUSION: No evidence of acute intracranial pathology. No masses are identified. Sushant Woods MD Abdomen/Pelvis CT 01/17/17 1803 Signed Impressions: Service Date/Time: Tuesday, January 17, 2017 18:13 - CONCLUSION: 1. No acute findings compared with July 2016. No obstruction, free fluid or free air. Ostomy right lower quadrant. Jerald Lau MD Chest X-Ray 01/17/17 0000 Signed Impressions: Service Date/Time: Wednesday, January 18, 2017 00:20 - CONCLUSION: 1. No acute cardiopulmonary disease. 2. Possible nodule left midlung. CT scan is recommended for further evaluation if clinically indicated. Sushant Woods MD Objective Remarks GENERAL: Pale-appearing, fatigued, however alert and oriented to situation. SKIN: Skin intact. Cool and dry. HEAD: Normocephalic atraumatic. EYES: Pupils equal round and reactive. Extraocular motions intact. No scleral icterus. No injection or drainage. ENT: Dry mucous membranes. CARDIOVASCULAR: Faint heart sounds, tachycardic, regular rate, faint murmur over right sternal border. RESPIRATORY: Clear to auscultation. Breath sounds equal bilaterally. No wheezes , rales, or rhonchi. GASTROINTESTINAL: Hypoactive bowel sounds. Beefy red ileostomy in place over the right abdomen producing brown liquid. Surrounding skin was intact without erythema. No warmth surrounding the ostomy. Her abdomen was diffusely tender, however had no rebound tenderness or guarding. NEUROLOGICAL: Awake and alert. Cranial nerves II through XII grossly intact. Motor and sensory grossly within normal limits. Normal speech. (Oc Villalobos MD R1) A/P Assessment and Plan Ms. Rogers is a pleasant 66-year-old female, presenting with 6 days of abdominal pain, nausea, and persistent vomiting. On admission she was found to be in acute renal failure, with a creatinine of 3.25 (baseline 1.5). The lipase level was also elevated at 724 and she had a leukocytosis of 16.4 thousand. She received 2 L of IV fluid, 4 mg IV morphine, and an abdominal CT that was unremarkable. She will be admitted to the family medicine team B, with a presumptive diagnosis of pancreatitis, gastroenteritis, as well as acute on chronic renal failure. Discharge Planning Discharge pending rehydration, normalization of electrolytes, clearance by colorectal surgery. sdw Dr. Faheem Rodriguez wdw Dr. Solomon (Oc Villalobos MD R1) Attending Attestation Patient seen and examined. Case reviewed and discussed Agree with plan of care as discussed with me and documented in the resident note. (Ana Solomon MD) Problem List: (1) Metabolic acidosis Status: Acute Plan: Patient presents with normal anion gap metabolic acidosis. Bicarb persistently low at 9.5. Differential diagnosis includes: Fistula (uretosigmoid fistula because the colon will waste bicarbonate vs. pancreatic fistula because of alkali loss--the pancreas secretes a bicarbonate- rich fluid.) Ostomy RTA/Renal failure Diarrhea IV fluids as below Replete bicarbonate IV and PO Continue to monitor --Nephrology consult appreciated (2) Nausea Status: Acute Plan: Patient has 6 days of persistent nausea with clear, bilious emesis. CT of the abdomen showed: "No acute findings compared with July 2016." Lipase was elevated at 724. A likely diagnosis at this time includes pancreatitis, gastroenteritis (viral versus bacterial), subdural hematoma/head trauma, urinary tract infection/intra-abdominal infection. PLAN: -Aggressive IV rehydration: Has gotten 2 L bolus normal saline in ED, we will start 1.5 times maintenance 135 ml/hr NS. Recent echo in June 2016 showed an EF of 55%. -Pain relief with morphine 2 mg every 3 hours pain 1-5, Dilaudid 0.5 mg pain 6-10 (at home she gets 60 mg of morphine daily, as well as 40 mg of Oxycodone -- > equivalent would be 6 mg IV Dilaudid daily). We will be cautious given her acute on chronic kidney disease. -Treat UTI with empiric antibiotics with ceftriaxone 1 g IV; discontinued daily ciprofloxacin (renally dosed) (01/18), and discontinued Flagyl (01/17 - 01/18 ). Will follow urine culture. -Clear liquid diet -Stool studies showed no WBCs, otherwise pending. Rotavirus negative. -Lactic acid stable at 2, repeat BMP every 6 hours. VBG then ABG, which showed decreasing acidosis. -CT of the head showed no evidence of acute intracranial pathology. Patient had recent fall approximately 1 and 1/2 weeks ago. -Zofran 4 mg IV every 6 hours when necessary nausea/vomiting. QTc within normal limits (414, 361) on serial EKGs (3) Diffuse abdominal pain Status: Acute Plan: See A/P above. (4) Vomiting Status: Resolved Plan: Pt with only one reported episode of vomiting since being in ED. -See A/P above. (5) Acute on chronic renal insufficiency Status: Acute Plan: Baseline creatinine level was 1.3-1.5 in September 2016. Creatinine on admission was 3.25, with a BUN of 62. Creatinine trended down to 2.16 this morning, with BUN of 43, s/p IV fluid hydration, which seems to be helping. Suspect severe dehydration given history of persistent vomiting. -Repeat BMP every 6 hours until electrolytes normalize. -consider an ultrasound of kidneys ureter and bladder to rule out obstructive uropathy. -1.5x maintenance fluids -Nephrology consult appreciated (6) Ileostomy in place Status: Acute Plan: Surrounding tissue was without erythema or drainage. Patient reports daily output, that has been reduced. We will change ostomy bag and monitor output. Colorectal surgery consult appreciated (7) COPD (chronic obstructive pulmonary disease) Status: Chronic Plan: -Albuterol 2.5 mg inhaler q 2 hr prn -Duo nebs every 4 hours when necessary for shortness of breath or wheezing (8) Physical deconditioning Status: Acute Plan: Consult physical therapy when over acute illness; may need to go to a assisted living facility or correction facility upon discharge. Case management consult. (9) Osteoporosis Status: Chronic Plan: Hold bisphosphonate therapy at this time. Will restart once tolerating by mouth therapy. Fall precautions in place. (10) Depression Status: Chronic Plan: Bupropion 100 mg tablets twice a day, Prozac 10 mg daily, as well as her trazodone 100 mg daily at bedtime. (11) HTN (hypertension) Status: Chronic Plan: Pressure elevated on initial exam to 168/80. Recent Blood pressures 140s over 70s to 80s. -clonidine 0.1 mg tablets every 6 hours for blood pressure greater than 180/90. -hydralazine 10 mg IV push every hour when necessary blood pressure greater than 160/90. (12) FEN/ppx Status: Chronic Plan: Fluids: 135 ML's per hour normal saline. Electrolytes: Repeat BMP every 6 hours until resolution of electrolyte abnormalities. Nutrition: Clear liquid diet (Oc Villalobos MD R1) Oc Villalobos MD R1 Jan 18, 2017 09:50 Ana Solomon MD Jan 19, 2017 08:30 Oc Villalobos MD R1 Jan 18, 2017 09:50
[2017-01-18] MEDS: POTASSIUM CHLORIDE 10 MEQ CONTROLLED RELEASE TAB PO SCH (09:55)
[2017-01-18 10:21] VITALS: PULSE 85
[2017-01-18] MEDS ORDERED: RESP: ALBUTEROL 2.5 MG/IPRATROPIUM 0.5 MG NEB (PRN) NEB (12:00)
[2017-01-18] MEDS ORDERED: SODIUM BICARBONATE 325 MG TAB PO SCH (12:00)
[2017-01-18] MEDS: cefTRIAXone INJ 1,000 MG in SODIUM CHLORIDE 0.9% INJ 100 ML IV SCH (12:00)
--- NOTE | 2017-01-18 12:15 | PD.CONS ---
HPI Service Nephrology Consult Requested By Dr. Glass Reason for Consult Acute renal decline, acidosis, electrolyte abnormality Primary Care Physician Non-Staff History of Present Illness The patient is a 66 yo [place] female who presented to the ED last evening with complaints of 6 days of nausea, vomiting, fatigue, a/nd poor oral intake. States she has lost weight over the past few weeks and has very little appetite. Has vomited 2-3x per day for the past 6 days. 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 States there have been plans to reverse this potentially during this admission. During her admission in June, nephrology was consulted to rule out a potential RTA given her multiple electrolyte abnormalities. Was determined at that visit that she likely had hyperchloremic acidosis related to her ileostomy. Says she has not followed with brand engineer since her previous admission. States she has been told that she has underlying CKD for some time, but again no brand engineer. Not sure of baseline SCr or staging of CKD. States her PCP, Dr. Hurley, has been monitoring. Has history of kidney stones and does mention that she has had surgical intervention of stones in the past--namely stenting and nephrostomy placement, but has had no complications from renal stones in many years. Does not follow with Urologist. When asked about atrophic kidney ( detected on US in Sep 2016), she says she is aware of this, but details of this remains unclear. PMHx of hypotension, nephrolithiasis, DDD, shingles. Does report a previous h/ o chronic NSAID use for many years that she stopped in June of last year. No FHx of kidneys issues. Says only family history that she is aware of is cancer. (Estefania Pierce) Review of Systems Gastrointestinal: COMPLAINS OF: Abdominal pain, Nausea, Vomiting, Anorexia ( Estefania Pierce) Past Family Social History Allergies: Coded Allergies: *MDRO Multi-Drug Resistant Organism (Verified Adverse Reaction, Unknown, ) MRSA PCR screen (nares) POSITIVE - 07/26/16 Past Medical History ? 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 Hypotension DDD Shingles Colovesical fistula s/p ileostomy formation June 2016 Diverticulitis Past Surgical History Ileostomy Ureteral stent Nephrostomy tube with removal Hysterectomy Appendectomy Tonsillectomy Reported Medications Reported Meds & Active Scripts Active Percocet (Oxycodone-Acetaminophen) 10-325 mg Tab 1 Tab PO Q6H PRN Midodrine 10 Mg Tab 10 Mg PO BID PRN Gabapentin 100 Mg Cap 100 Mg PO BID Sodium Bicarbonate 325 Mg Tab 325 Mg PO Q12HR Potassium Chloride Microencaps 20 Meq Tab 40 Meq PO Q12HR Ferrous Sulfate 325 Mg Tab 325 Mg PO DAILY Morphine ER (Morphine Sulfate) 30 Mg Tab 30 Mg PO BID Trazodone (Trazodone HCl) 100 Mg Tab 100 Mg PO HS [shower chair] Ut DAILY Aspirin EC (Aspirin) 81 Mg Tabdr 81 Mg PO DAILY Valacyclovir (Valacyclovir HCl) 1 Gm Tab 1,000 Mg PO BID Bupropion HCl 100 Mg Tab 100 Mg PO BID Prozac (Fluoxetine HCl) 10 Mg Cap 10 Mg PO DAILY Pravastatin 80 Mg Tab 80 Mg PO HS Reported Pravastatin 80 Mg Tab 80 Mg PO DAILY Amlodipine (Amlodipine Besylate) 10 Mg Tab 10 Mg PO DAILY Fosamax (Alendronate Sodium) 70 Mg Tab 70 Mg PO Q7D TAKES ON SUNDAYS Active Ordered Medications Current Medications Medications (Trade) Dose Ordered Sig/Torri Route Start Time Stop Time Status Last Admin IV Flush 2 ml 2 ml UNSCH PRN IVF 01/17/17 18:15 (NS 1000 ml Inj) 1,000 ml @ 135 mls/hr Q7H25M IV 01/17/17 22:23 01/18/17 06:02 Ondansetron HCl 4 mg 4 mg Q6H PRN IV 01/17/17 22:30 01/18/17 08:00 Pharmacy Profile Note 0 ml @ 0 mls/hr UNSCH OTHER 01/17/17 22:30 (Cipro 400 Mg Premix) 200 ml @ 200 mls/hr DAILY@00 IV 01/18/17 00:00 01/18/17 02:25 (Morphine Inj) 2 mg Q3H PRN IV 01/17/17 23:15 (Apresoline Inj) 10 mg Q1HR PRN IV PUSH 01/17/17 23:15 (Dilaudid Pf Inj) 0.5 mg Q4H PRN IV 01/18/17 02:30 Clonidine 0.1 mg 0.1 mg Q6H PRN PO 01/17/17 23:45 (Sodium Bicarbonate 8.4% Inj/NS 1000 ml Inj) 1,100 ml @ 42 mls/hr Q24H IV 01/18/17 02:30 01/18/17 03:31 (KCl) 40 meq DAILY PO 01/18/17 10:00 01/18/17 09:55 Family History Mother, aunt, brother, grandmother with unknown cancers No FHx of collagen vascular disease or CKD that she is aware of. Only has one living brother Social History Previous heavy smoker, but quit in 2010 Denies EtOH, no illicits (Estefania Pierce) Physical Exam Vital Signs Vital Signs Date Time Temp Pulse Resp B/P Pulse Ox O2 Delivery O2 Flow Rate FiO2 01/18/17 10:21 85 01/18/17 05:28 94 01/18/17 04:43 97.7 84 18 141/89 97 01/17/17 23:10 96 01/17/17 23:00 98 16 148/72 96 Room Air 01/17/17 20:56 17 01/17/17 19:00 106 13 158/97 94 Room Air 01/17/17 19:00 17 94 Room Air 01/17/17 17:42 97.5 121 15 155/81 100 Physical Exam GENERAL: ill-appearing, frail. Mild distress, Dry heaving throughout interview/ exam SKIN: Warm and dry. HEAD: Atraumatic. Normocephalic. EYES: Pupils equal and round. No scleral icterus. No injection or drainage. ENT: No nasal bleeding or discharge. Mucous membranes pink and moist. NECK: Trachea midline. No JVD. CARDIOVASCULAR: Regular rate and rhythm. RESPIRATORY: No accessory muscle use. Clear to auscultation. Breath sounds equal bilaterally. GASTROINTESTINAL: Abdomen soft, generalized tenderness. Ileostomy present. MUSCULOSKELETAL: Extremities without clubbing, cyanosis, or edema. No obvious deformities. NEUROLOGICAL: Awake and alert. Normal speech. PSYCHIATRIC: Appropriate mood and affect; insight and judgment normal. Laboratory Laboratory Tests Test 01/17/17 01/17/17 01/17/17 01/18/17 19:00 19:30 23:00 02:15 White Blood Count 16.4 Red Blood Count 5.24 Hemoglobin 16.4 Hematocrit 53.9 Mean Corpuscular Volume 102.9 Mean Corpuscular Hemoglobin 31.3 Mean Corpuscular Hemoglobin 30.4 Concent Red Cell Distribution Width 16.6 Platelet Count 275 Mean Platelet Volume 8.6 Neutrophils (%) (Auto) 85.7 Lymphocytes (%) (Auto) 9.4 Monocytes (%) (Auto) 4.8 Eosinophils (%) (Auto) 0.0 Basophils (%) (Auto) 0.1 Neutrophils # (Auto) 14.0 Lymphocytes # (Auto) 1.5 Monocytes # (Auto) 0.8 Eosinophils # (Auto) 0.0 Basophils # (Auto) 0.0 CBC Comment DIFF FINAL Differential Comment Sodium Level 136 142 Potassium Level 3.8 5.4 Chloride Level 114 124 Carbon Dioxide Level 8.8 9.7 Anion Gap 13 8 Blood Urea Nitrogen 62 51 Creatinine 3.25 2.42 Estimat Glomerular Filtration 14 20 Rate Random Glucose 134 103 Calcium Level 8.9 6.6 Total Bilirubin 0.4 0.3 Aspartate Amino Transf 7 26 (AST/SGOT) Alanine Aminotransferase 14 14 (ALT/SGPT) Alkaline Phosphatase 118 83 Troponin I 0.02 Total Protein 9.0 6.0 Albumin 4.7 3.0 Lipase 724 Prothrombin Time 10.6 Prothromb Time International 1.0 Ratio Activated Partial 24.6 Thromboplast Time Lactic Acid Level 2.0 2.0 Urine Color YELLOW Urine Turbidity HAZY Urine pH 6.0 Urine Specific Crosby 1.011 Urine Protein 30 Urine Glucose (UA) NEG Urine Ketones NEG Urine Occult Blood MOD Urine Nitrite NEG Urine Bilirubin NEG Urine Urobilinogen LESS THAN 2.0 Urine Leukocyte Esterase LARGE Urine RBC 4 Urine WBC 96 Urine Squamous Epithelial <1 Cells Urine Bacteria MANY Urine Mucus FEW Microscopic Urinalysis Comment CULTURE INDICATED Protein Corrected Calcium 7.1 Phosphorus Level 2.8 Magnesium Level 2.0 Lactate Dehydrogenase 465 Triglycerides Level 122 Blood Gas Puncture Site Blood Gas Patient Temperature 98.6 Venous Blood pH 7.12 Venous Blood Partial Pressure 15 CO2 Venous Blood Partial Pressure 30 O2 Venous Blood HCO3 5 Venous Blood Oxygen Saturation 56 Venous Blood Oxygen Content 5.0 Venous Blood Base Excess -23.1 Oxygen Delivery Device ROOM AIR Blood Gas Inspired Oxygen 21 Test 01/18/17 01/18/17 01/18/17 01/18/17 03:00 04:08 08:03 08:10 Stool C. difficile Toxin (PCR) NEGATIVE Stl C. difficile Toxin PRESUMPTIVE Epiderm 027 NEGATIVE White Blood Count 12.2 Red Blood Count 3.71 Hemoglobin 11.8 Hematocrit 36.3 Mean Corpuscular Volume 97.9 Mean Corpuscular Hemoglobin 32.0 Mean Corpuscular Hemoglobin 32.6 Concent Red Cell Distribution Width 15.8 Platelet Count 172 Mean Platelet Volume 10.7 Neutrophils (%) (Auto) 73.8 Lymphocytes (%) (Auto) 18.4 Monocytes (%) (Auto) 7.5 Eosinophils (%) (Auto) 0.1 Basophils (%) (Auto) 0.2 Neutrophils # (Auto) 9.0 Lymphocytes # (Auto) 2.3 Monocytes # (Auto) 0.9 Eosinophils # (Auto) 0.0 Basophils # (Auto) 0.0 CBC Comment DIFF FINAL Differential Comment Sodium Level 145 Potassium Level 3.0 Chloride Level 123 Carbon Dioxide Level 9.5 Anion Gap 13 Blood Urea Nitrogen 43 Creatinine 2.16 Estimat Glomerular Filtration 23 Rate Random Glucose 94 Calcium Level 8.5 Protein Corrected Calcium 9.2 Phosphorus Level 2.5 Magnesium Level 2.0 Total Bilirubin 0.3 Aspartate Amino Transf 10 (AST/SGOT) Alanine Aminotransferase 11 (ALT/SGPT) Alkaline Phosphatase 83 Total Protein 6.0 Albumin 3.3 Blood Gas Puncture Site RT RADIAL Blood Gas Patient Temperature 98.6 Blood Gas HCO3 7 Blood Gas Base Excess -18.7 Blood Gas Oxygen Saturation 95 Arterial Blood pH 7.25 Arterial Blood Partial 17 Pressure CO2 Arterial Blood Partial 114 Pressure O2 Arterial Blood Oxygen Content 15.8 Arterial Blood 1.6 Carboxyhemoglobin Arterial Blood Methemoglobin 2.0 Blood Gas Hemoglobin 11.7 Blood Gas Inspired Oxygen 21 Date/Time Procedure Status Source Growth 01/18/17 03:00 Rotavirus Antigen - Final Complete Stool Stool NEGATIVE - ROTAVIRUS ANTIGEN IS ABSEN... 01/18/17 03:00 Cryptosporidium Exam Resulted Stool Stool Pending 01/18/17 03:00 Stool Pus (JESI) - Final Resulted Stool Stool NO WBC'S SEEN 01/18/17 03:00 Giardia Antigen (JESI) Resulted Stool Stool Pending 01/18/17 03:00 Received Stool Stool Pending 01/17/17 23:00 Urine Culture Received Urine Clean Catch Pending 01/17/17 19:30 Aerobic Blood Culture - Preliminary Resulted Blood Peripheral NO GROWTH IN 1 DAY 01/17/17 19:30 Anaerobic Blood Culture - Preliminary Resulted Blood Peripheral NO GROWTH IN 1 DAY (Estefania Pierce) Result Diagram: 01/18/17 0408 01/18/17 0803 Imaging Last Impressions Head CT 01/17/17 2223 Signed Impressions: Service Date/Time: Tuesday, January 17, 2017 23:21 - CONCLUSION: No evidence of acute intracranial pathology. No masses are identified. Sushant Woods MD Abdomen/Pelvis CT 01/17/17 1803 Signed Impressions: Service Date/Time: Tuesday, January 17, 2017 18:13 - CONCLUSION: 1. No acute findings compared with July 2016. No obstruction, free fluid or free air. Ostomy right lower quadrant. Jerald Lau MD Chest X-Ray 01/17/17 0000 Signed Impressions: Service Date/Time: Wednesday, January 18, 2017 00:20 - CONCLUSION: 1. No acute cardiopulmonary disease. 2. Possible nodule left midlung. CT scan is recommended for further evaluation if clinically indicated. Sushant Woods MD (Estefania Pierce) Assessment and Plan Problem List: (1) Acute on chronic renal insufficiency Plan: Review of previous labs available, does appear that she has CKD stage 3 with baseline SCr of 1.4-1.6 since June 2016. Etiology not entirely clear, but does report heavy NSAID use in history. Of note, renal US from Sep 2016 shows medullary sponge kidney with nephrocalcinosis. She has an atrophied L kidney that by history appears to have been from a previous obstruction versus infection given her reported nephrostomy tube. Her acute renal decline is likely related to volume depletion from recent emesis as well as poor oral intake. Improving with IVF Will repeat renal US to r/o obstruction as she has h/o nephrolithiasis. Continue on IVF. Monitor renal functions. Medications should be adjusted for the patient's renal decline. Avoid nephrotoxic medications including NSAIDs and iodinated contrast dyes. Avoid gadolinium when eGFR <30. (2) Diffuse abdominal pain Plan: CT reviewed and negative. Pending GI consultation. (3) Hypotension Plan: By history. Mildly elevated in house. Hold Midodrine. (4) Hypokalemia Plan: Repletion as ordered Check Mg levels (5) Hyperchloremic metabolic acidosis Plan: Likely worsened by ileostomy, however, appears this has been going on prior to her ostomy placement. Potentially long-term diarrhea or losses previously? 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 RTA 1 can be associated autoimmune diseases such as Sjogrens, hypercalcuria, genetics, as well as custodial use of Ibuprofen and codeine which she endorses. Will repeat urine lytes. Check 24h urine for calcium Check iPTH and Mg levels Continue on IV bicarb. (6) Nephrocalcinosis Plan: As per US from Sep 2016. Repeat US. Advised the patient importance of nephrology & urology f/u as outpatient. Will need metabolic urine study as she is at high risk of development of kidney stones. (Estefania Pierce) Assessment and Plan The exam, history, and the medical decision-making described in the above note were completed with the assistance of the PA-C. I reviewed and agree with the findings presented. (Edgardo Mccann MD) Estefania Pierce Jan 18, 2017 12:15 Edgardo Mccann MD Jan 19, 2017 12:31
[2017-01-18] MEDS: HEPARIN SODIUM - SQ 10,000 UNITS/ML VIAL SQ SCH ×2 (14:00→21:21)
[2017-01-18] MEDS ORDERED: RESP: ALBUTEROL 2.5 MG/IPRATROPIUM 0.5 MG NEB (SCH) NEB (14:00)
--- NOTE | 2017-01-18 14:15 | EKG ---
Date Performed: 01/18/2017 Time Performed: 02:18:02 PTAGE: 66 years EKG: Sinus rhythm LOW PRECORDIAL VOLTAGE OTHERWISE WITHIN NORMAL LIMITS Since previous tracing, T wave changes have im proved ABNORMAL ECG PREVIOUS TRACING : 10/03/2016 11.00 DOCTOR: Mp Perdomo Interpretating Date/Time 01/18/2017 15:32:26
--- NOTE | 2017-01-18 14:15 | EKG ---
Date Performed: 01/18/2017 Time Performed: 05:05:33 PTAGE: 66 years EKG: Sinus rhythm LOW PRECORDIAL VOLTAGE Since previous tracing, the ST depression changes are more prominent. Clinica l correlation is recommended BORDERLINE ECG PREVIOUS TRACING : 01/18/2017 02.18 DOCTOR: Mp Perdomo Interpretating Date/Time 01/18/2017 15:33:12
[2017-01-18 15:17] LABS: MAGNESIUM 1.9 MG/DL (1.5-2.5)
[2017-01-18 15:55] VITALS: BP 128/60; PULSE 80; RESP 18; TEMP 98.9; O2SAT 100
[2017-01-18] MEDS: CHOLECALCIFEROL (VIT D3) 1000 UNIT TAB PO SCH (18:00)
[2017-01-18 18:36] LABS: POTASSIUM 3.2 MEQ/L (3.5-5.1)
[2017-01-18] MEDS ORDERED: LACTATED RINGER'S 1000 ML INJ 1,000 ML IV SCH (18:51)
[2017-01-18] MEDS ORDERED: POTASSIUM CHLORIDE 10 MEQ CONTROLLED RELEASE TAB PO ONE ×3 (19:00→22:45)
--- NOTE | 2017-01-18 19:05 | HHI.PR ---
Addendum to Inpatient Note Addendum Reason: Additional Documentation Additional Information Because of most recent BMP and low vitamin D, Changed NS to LR, added cholecalciferol, increased oral bicarb, added oral potassium. Oc Villalobos MD R1 Jan 18, 2017 19:05
[2017-01-18 19:14] VITALS: BP 138/64; PULSE 71; RESP 18; TEMP 98.8; O2SAT 97
--- NOTE | 2017-01-18 19:49 | RADRPT ---
EXAM DATE/TIME: 01/18/2017 18:05 [facility] COMPARISON: No previous studies available for comparison. INDICATIONS : Increased BUN and Creatinine. MEDICAL HISTORY : Chronic obstructive pulmonary disease. Hypertension. Deep venous thrombosis. Anticoagulant therapy. B ulimia. Mumps. Renal failure. Renal calculi. Restless legs syndrome. Osteoarthritis. Spinal stenosis. Sciatica. Depression. Anxiety. Anemia. MRSA. SURGICAL HISTORY : Tonsillectomy. Hysterectomy. Appendectomy. Colostomy. Kidney stone extraction. Renal stent. ENCOUNTER: Subsequent ACUITY: 1 day PAIN SCORE: 6/10 LOCATION: Bilateral flank MEASUREMENTS: RIGHT KIDNEY: 10.1 x 4.6 x 4.3 cm LEFT KIDNEY: 8.4 x 4.4 x 3.9 cm FINDINGS: Ultrasound reveals extensive bilateral medullary nephrocalcinosis with atrophic left kidney and thinn ing of the cortex bilaterally. No hydronephrosis. Small cysts upper pole right kidney and lower pole left kidney. Bladder unremarkable. CONCLUSION: 1. Extensive medullary nephrocalcinosis. Atrophic kidneys. No hydronephrosis. Jerald Lau MD on January 18, 2017 at 19:44 Board Certified Radiologist. This report was verified electronically.
[2017-01-18 20:00] VITALS: PULSE 73
[2017-01-18] MEDS: SODIUM BICARBONATE 325 MG TAB PO SCH (21:21)
[2017-01-18] MEDS: HYDROmorphone HCL PF 1 MG/ML VIAL IV PRN (21:36)
[2017-01-18 21:45] LABS: BICARBONATE 11.5 MEQ/L (21.0-32.0)
[2017-01-18 21:58] LABS: CALCIUM-PROTEIN CORRECTED 8.2 MG/DL (8.5-10.1)
[2017-01-18 22:00] LABS: POTASSIUM 2.9 MEQ/L (3.5-5.1)
--- NOTE | 2017-01-18 22:53 | HHI.FPPN ---
Addendum to progress note ADDENDUM Reason for addendum: Additonal documentation Eva Lo MD R1 Jan 18, 2017 22:53
[2017-01-18] MEDS ORDERED: SODIUM BICARBONATE 8.4% INJ 100 MEQ in SODIUM CHLOR 0.45% 1000 ML INJ 1,000 ML IV SCH (23:15)
[2017-01-18] MEDS ORDERED: CALCIUM GLUCONATE 10% 1 GM/10 ML VIAL IV PUSH ONE (23:15)
[2017-01-19] VITALS (9 sets, daily range): BP systolic 132–195; BP diastolic 63–84; PULSE 72–85; RESP 14–18; TEMP 97.6–98.4; O2SAT 97–100
[2017-01-19] MEDS: ONDANSETRON HCL 4 MG/2 ML VIAL IV PRN ×2 (05:03→10:13)
[2017-01-19] MEDS: HEPARIN SODIUM - SQ 10,000 UNITS/ML VIAL SQ SCH ×2 (05:03→14:09)
[2017-01-19] MEDS: HYDROmorphone HCL PF 1 MG/ML VIAL IV PRN ×4 (05:04→18:26)
--- NOTE | 2017-01-19 05:15 | MB ---
cc: SARA HANSON M.D. DATE OF CONSULTATION January 18, 2017 REASON FOR CONSULTATION 1. High ileostomy output. 2. Acute renal failure. 3. Dehydration. 4. History of diverticulitis. HISTORY OF PRESENT ILLNESS Ms. Rogers is a 66-year-old female known from previous admission in 2016 at which time she had diverticulitis, diverticular fistula and multiple medical problems. After medical stabilization, she eventually went to surgery for proctosigmoidectomy, distal anastomosis and diverting ileostomy. The patient appears to have been lost to followup since that time and was only seen once as an outpatient. She has been admitted on several occasions for high ileostomy output and dehydration with some worsening of her renal failure due to poor oral intake. The patient presents again with about 6 days of high ileostomy output progressing to nausea and vomiting. She denies fever but has had generalized anorexia and lethargy. She has continued to have ileostomy output. Denies any abdominal distension. No rectal drainage or discharge and no rectal bleeding. She presented to the emergency room for additional evaluation and was found to be significantly dehydrated, acidotic and with worsening of her renal function. She was admitted for IV fluid therapy and replacement of her electrolytes. Please see her history and physical for more complete past medical and surgical history. PERTINENT PHYSICAL GENERAL: A very pleasant older female in no acute distress. ABDOMEN: Abdomen was very soft and flat. Minimal tympany. Ileostomy is pink and producing quite a bit of liquid stool. Previous incision was all well-healed. No obvious masses or tenderness. RECTAL: Anal inspection revealed benign canal. Digital exam revealed good tone. No masses or tenderness and no stool in vault. LABORATORY STUDIES All reviewed. IMPRESSION A 66-year-old female with multiple medical problems and what should have been a temporary ileostomy who presents again with high output at the ileostomy volume and dehydration progressing to acidosis and progressive worsening of her renal function. RECOMMENDATIONS The patient appears to be responding and she did in the past with vigorous IV fluid therapy and electrolyte replacement. She certainly should be stabilized and if medical condition is appropriate could be considered for a loop ileostomy closure which could be a fairly simple procedure. Will need to evaluate her distal anastomosis to see if it is suitable to allow the ileostomy closure to be undertaken. We will give her a day or two to stabilize with IV fluids, electrolyte replacement and see if she is strong enough to consider an ileostomy closure. MD JANEEN Mendez/UNA /10:30 PM /5:05 AM
[2017-01-19 05:33] LABS: BLOOD GAS VENOUS BASE EXCESS -13.9 mmol/L (-2-2); BLOOD GAS VENOUS HCO3 12 mmol/L (22-26); BLOOD GAS VENOUS O2 CONTENT 10.4 Vol % (9.0-17.0); BLOOD GAS VENOUS O2 HGB SAT 72 % (70-76); BLOOD GAS VENOUS PCO2 25 mmHg (44-48); BLOOD GAS VENOUS PO2 37 mmHg (35-40); BLOOD GAS VENOUS pH 7.29 (7.360-7.400); TEMP CORR TO 98.6
[2017-01-19 05:34] LABS: CRITICAL VALUE YES; DRAW SITE LINE; FIO2 21 %; STAT NO
[2017-01-19 05:54] LABS: HEMATOCRIT 32.7 % (35.0-46.0); MEAN CELL VOLUME 95.6 FL (80.0-100.0); MEAN CORPUSCULAR HEMOGLOBIN 31.7 PG (27.0-34.0); MEAN CORPUSCULAR HGB CONC 33.1 % (32.0-36.0); PLATELET COUNT 224 TH/MM3 (150-450); RED BLOOD COUNT 3.42 MIL/MM3 (4.00-5.30); RED CELL DISTRIBUTION WIDTH 15.4 % (11.6-17.2); REVIEW FLAG FINAL; WHITE BLOOD COUNT 10.1 TH/MM3 (4.0-11.0)
[2017-01-19 06:34] LABS: POTASSIUM 2.9 MEQ/L (3.5-5.1)
[2017-01-19 06:51] LABS: CALCIUM-PROTEIN CORRECTED 8.3 MG/DL (8.5-10.1)
[2017-01-19] MEDS: POTASSIUM CHLORIDE 10 MEQ CONTROLLED RELEASE TAB PO SCH (10:02)
[2017-01-19] MEDS: SODIUM BICARBONATE 325 MG TAB PO SCH ×2 (10:03→22:26)
[2017-01-19] MEDS: CHOLECALCIFEROL (VIT D3) 1000 UNIT TAB PO SCH (10:03)
--- NOTE | 2017-01-19 10:22 | HHI.FPPN ---
Subjective Remarks Pt seen this morning, says she does not feel well at all. Still has a lot of nausea with dry heaving. Abdominal pain has worsened. Lots of output from ostomy bag. Nurse says was changed at least 8 times overnight. Denies chest pain , SOB, and dysuria. (Arlin Gillespie MD R1) Objective Vitals Vital Signs Date Time Temp Pulse Resp B/P Pulse Ox O2 Delivery O2 Flow Rate FiO2 01/19/17 07:23 97.6 85 18 139/63 97 01/19/17 04:13 97.7 72 18 132/68 97 01/19/17 00:00 98.4 80 18 134/77 98 01/18/17 20:00 73 01/18/17 19:14 98.8 71 18 138/64 97 01/18/17 15:55 98.9 80 18 128/60 100 I/O 01/18/17 01/18/17 01/18/17 01/19/17 01/19/17 01/19/17 07:00 15:00 23:00 07:00 15:00 23:00 Intake Total 1988 ml 840 ml Balance 1988 ml 840 ml Intake IV Total 1988 ml 840 ml # Voids 4 (Arlin Gillespie MD R1) Result Diagram: 01/19/17 0536 01/19/17 0536 Objective Remarks GENERAL: Pale-appearing, thin, however alert and oriented to situation. SKIN: Skin intact. Cool and dry. HEAD: Normocephalic atraumatic. EYES: Pupils equal round and reactive. Extraocular motions intact. No scleral icterus. No injection or drainage. ENT: Dry mucous membranes. CARDIOVASCULAR: Faint heart sounds, tachycardic, regular rate RESPIRATORY: CTAB Breath sounds equal bilaterally. No wheezes, rales, or rhonchi. GASTROINTESTINAL: Normal bowel sounds. Ileostomy in place over the right abdomen producing brown liquid. Surrounding skin was intact without erythema. No warmth surrounding the ostomy. Diffusely TTP over her abdomen - no guarding. NEUROLOGICAL: Awake and alert. Cranial nerves II through XII grossly intact. Motor and sensory grossly within normal limits. Normal speech. (Arlin Gillespie MD R1) A/P Assessment and Plan Ms. Rogers is a pleasant 66-year-old female, presenting with 6 days of abdominal pain, nausea, and persistent vomiting. On admission she was found to be in acute renal failure, with a creatinine of 3.25 (baseline 1.5). The lipase level was also elevated at 724 and she had a leukocytosis of 16.4 thousand. She received 2 L of IV fluid, 4 mg IV morphine, and an abdominal CT that was unremarkable. She will be admitted to the family medicine team B, with a presumptive diagnosis of pancreatitis, gastroenteritis, as well as acute on chronic renal failure. Discharge Planning Discharge pending rehydration, normalization of electrolytes, clearance by colorectal surgery. sdw Dr. Smiley, PGY [address] Solomon (Arlin Gillespie MD R1) Attending Attestation Patient seen and examined. Case reviewed and discussed Agree with plan of care as discussed with me and documented in the resident note. (Ana Solomon MD) Problem List: (1) Metabolic acidosis Status: Resolved Plan: Patient presented with normal anion gap metabolic acidosis suspected to be hyperchloremic metabolic acidosis due to loss from excessive ostomy output -Bicarb on admission was 9.5, increased to 15.0 today -Venous blood gas pH increased to 7.29 today compared to 7.12 on 01/18 -Plan is to continue to replete bicarbonate and other electrolytes -Currently on 12/01 NS @ 42mls/hr with bicarbonate -Nephrology on board -Colorectal surgery on board, Dr. King - consider an ileostomy closure after electrolyte replacement (2) Nausea Status: Acute Plan: -Suspect related to dehydration and electrolyte derangement from excessive ostomy output -Continue Zofran 4 mg IV every 6 hours when necessary nausea/vomiting (3) Diffuse abdominal pain Status: Acute Plan: -May be due to pancreatitis, gastroenteritis, UTI -Dilaudid 0.5 mg IV every 4 hours for abdominal pain (4) Acute on chronic renal insufficiency Status: Resolved Plan: -Baseline creatinine level was 1.3-1.5 in September 2016. -Creatinine on admission was 3.25, with a BUN of 62 -Creatinine improving. 1.67 today 01/19 -We will continue to monitor with serial BMP every 6 hours -Ultrasound of kidneys performed on 01/18 shows extensive bilateral medullary nephrocalcinosis with atrophic left kidney and tingling of the cortex bilaterally. No hydronephrosis. Bladder unremarkable -Nephrology on board (5) Ileostomy in place Status: Acute Plan: -Monitor outputs and change ostomy bag as needed -Colorectal surgery on board, considering ileostomy closure (6) COPD (chronic obstructive pulmonary disease) Status: Chronic Plan: -Albuterol 2.5 mg inhaler q 2 hr prn -Duonebs every 4 hours when necessary for shortness of breath or wheezing (7) Physical deconditioning Status: Acute Plan: -Will consult physical therapy when acute illness has improved -Patient may need to go to a assisted living facility or prison facility upon discharge -Case management consulted to help with discharge needs (8) Osteoporosis Status: Chronic Plan: -Hold bisphosphonate therapy at this time -Will restart once tolerating by mouth therapy and nausea has improved -Fall precautions in place (9) Depression Status: Chronic Plan: Holding all the following home meds due to persistent nausea: -Bupropion 100 mg tablets twice a day -Prozac 10 mg daily -Trazodone 100 mg daily at bedtime. (10) HTN (hypertension) Status: Chronic Plan: -Pressure elevated on initial exam to 168/80 -Recent systolic blood pressures in the 130s -Clonidine 0.1 mg tablets every 6 hours for blood pressure greater than 180/90 -Hydralazine 10 mg IV push Q1h when necessary blood pressure greater than 160/90 (11) FEN/ppx Status: Chronic Plan: Fluids: 1/2 NS @ 42 mls/hr plus bicarbonate Electrolytes: Repeat BMP every 6 hours Nutrition: Clear liquid diet as tolerated (Arlin Gillespie MD R1) Arlin Gillespie MD R1 Jan 19, 2017 10:22 Ana Solomon MD Jan 23, 2017 15:42 Status: Chronic Plan: Pressure elevated on initial exam to 168/80. Recent Blood pressures 140s over 70s to 80s. -clonidine 0.1 mg tablets every 6 hours for blood pressure greater than 180/90. -hydralazine 10 mg IV push every hour when necessary blood pressure greater than 160/90. (12) FEN/ppx Status: Chronic Plan: Fluids: 135 ML's per hour normal saline. Electrolytes: Repeat BMP every 6 hours until resolution of electrolyte abnormalities. Nutrition: Clear liquid diet Arlin Gillespie MD R1 Jan 19, 2017 10:22
[2017-01-19] MEDS ORDERED: POTASSIUM CHLORIDE 25 MEQ EFFERVESCENT TAB PO ONE ×2 (10:45→17:15)
--- NOTE | 2017-01-19 12:32 | HHI.NPPN ---
Subjective History of Present Illness The patient is a 66 yo [place] female who presented to the ED last evening with complaints of 6 days of nausea, vomiting, fatigue, a/nd poor oral intake. States she has lost weight over the past few weeks and has very little appetite. Has vomited 2-3x per day for the past 6 days. 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 States there have been plans to reverse this potentially during this admission. During her admission in June, nephrology was consulted to rule out a potential RTA given her multiple electrolyte abnormalities. Was determined at that visit that she likely had hyperchloremic acidosis related to her ileostomy. Says she has not followed with tomato paste maker since her previous admission. States she has been told that she has underlying CKD for some time, but again no tomato paste maker. Not sure of baseline SCr or staging of CKD. States her PCP, Dr. Hurley, has been monitoring. Has history of kidney stones and does mention that she has had surgical intervention of stones in the past--namely stenting and nephrostomy placement, but has had no complications from renal stones in many years. Does not follow with Urologist. When asked about atrophic kidney ( detected on US in Sep 2016), she says she is aware of this, but details of this remains unclear. PMHx of hypotension, nephrolithiasis, DDD, shingles. Does report a previous h/ o chronic NSAID use for many years that she stopped in June of last year. Interval History patient currently has no verbal complaints. Review of Systems General Constitutional: Fatigue Objective Data Data 01/18/17 01/19/17 19:00 07:00 Intake Total 1987 ml 840 ml Balance 1987 ml 840 ml Intake IV Total 1988 ml 840 ml # Voids 4 Vital Signs Date Time Temp Pulse Resp B/P Pulse Ox O2 Delivery O2 Flow Rate FiO2 01/19/17 10:43 18 01/19/17 07:23 97.6 85 18 139/63 97 01/19/17 04:13 97.7 72 18 132/68 97 01/19/17 00:00 98.4 80 18 134/77 98 01/18/17 20:00 73 01/18/17 19:14 98.8 71 18 138/64 97 01/18/17 15:55 98.9 80 18 128/60 100 -: 01/19/17 0536 01/19/17 0536 Physical Exam General Appearance: Pale, Malnourished Appearance Remarks Appears older than stated age. Pulmonary Resp Exam: Clear Bilaterally, Breath Sounds Equal, No Distress Cardiology CV Exam: Regular, Normal Sinus Rhythm Gastrointestinal/Abdomen GI Exam: Soft, Non-Tender Integumentary Skin Exam: Clear, Warm Assessment/Plan Discussed Condition With: Patient Problem List: (1) Congenital medullary sponge kidney Plan: radiologic findings as well as a history of recurrent nephrolithiasis and urinary tract infections consistent with same. There is not always a familial history of same. I discussed with the patient the apparent diagnosis as well as its associated implications and need for regular followup with a tomato paste maker. (2) Acute on chronic renal insufficiency Plan: Review of previous labs available, does appear that she has CKD stage 3 with baseline SCr of 1.4-1.6 since June 2016. Etiology not entirely clear, but does report heavy NSAID use in history. Of note, renal US from Sep 2016 shows medullary sponge kidney with nephrocalcinosis. She has an atrophied L kidney that by history appears to have been from a previous obstruction versus infection given her reported nephrostomy tube. Her acute renal decline is likely related to volume depletion from recent emesis as well as poor oral intake. Improving with IVF Continue on IVF. Monitor renal functions. Medications should be adjusted for the patient's renal decline. Avoid nephrotoxic medications including NSAIDs and iodinated contrast dyes. Avoid gadolinium when eGFR <30. (3) Hyperchloremic metabolic acidosis Plan: Suspect primarily secondary to gastrointestinal bicarbonate fluid losses the results of the urine anion gap. There may also be a component related to her renal insufficiency also however. Continue bicarbonate supplementation. (4) Nephrocalcinosis Plan: As per US from Sep 2016. Repeat US. Advised the patient importance of nephrology & urology f/u as outpatient. Will need metabolic urine study as she is at high risk of development of kidney stones. Await results of 24-hour urine calcium. As an outpatient recommended Litholink study as medullary sponge kidney can also be associated with hypocitraturia, hyperoxaluria. Edgardo Mccann MD Jan 19, 2017 12:32
[2017-01-19 12:35] LABS: BICARBONATE 14.9 MEQ/L (21.0-32.0); POTASSIUM 3.1 MEQ/L (3.5-5.1)
[2017-01-19 12:47] LABS: CALCIUM-PROTEIN CORRECTED 8.5 MG/DL (8.5-10.1)
[2017-01-19] MEDS ORDERED: PROMETHAZINE HCL SYRUP 6.25 MG/5 ML CUP PO PRN (13:30)
[2017-01-19] MEDS: cefTRIAXone INJ 1,000 MG in SODIUM CHLORIDE 0.9% INJ 100 ML IV SCH (14:09)
[2017-01-19 15:03] LABS: BICARBONATE 14.9 MEQ/L (21.0-32.0)
[2017-01-19 15:44] LABS: CALCIUM-PROTEIN CORRECTED 8.6 MG/DL (8.5-10.1)
[2017-01-19 15:59] LABS: POTASSIUM 2.9 MEQ/L (3.5-5.1)
[2017-01-19] MEDS ORDERED: SODIUM CHLOR 0.45% 1000 ML INJ 1,000 ML IV SCH (17:30)
[2017-01-19] MEDS: PROMETHAZINE HCL 25 MG TAB PO PRN (18:26)
[2017-01-19 19:21] LABS: BICARBONATE 15.5 MEQ/L (21.0-32.0)
[2017-01-19 19:50] LABS: CALCIUM-PROTEIN CORRECTED 8.4 MG/DL (8.5-10.1)
[2017-01-19 19:54] LABS: POTASSIUM 2.9 MEQ/L (3.5-5.1)
--- NOTE | 2017-01-19 20:23 | HHI.PR ---
Subjective Remarks C/R Surg afebrile, VSS benito small am't PO stoma functioning Objective - Vital Signs Date Time Temp Pulse Resp B/P Pulse Ox O2 Delivery O2 Flow Rate FiO2 01/19/17 19:23 16 01/19/17 15:51 98.2 78 142/72 98 01/19/17 07:55 21 01/17/17 23:00 Room Air Result Diagram: 01/19/17 0536 01/19/17 4610 Objective Remarks PE alert Abd - soft, non-tender, min tympany A/P Assessment and Plan Imp: better renal function OOB PT discussed closure of ileostomy - will try to tona tomorrow Steven King MD Jan 19, 2017 20:23
[2017-01-19] MEDS: buPROPion HCL 100 MG TAB PO SCH (21:00)
[2017-01-19] MEDS ORDERED: CALCIUM GLUCONATE 10% 1 GM/10 ML VIAL IV PUSH ONE (21:15)
[2017-01-19] MEDS ORDERED: POTASSIUM CHLORIDE 20 MEQ CONTROLLED RELEASE TAB PO ONE (21:15)
[2017-01-19 22:20] LABS: BICARBONATE 16.9 MEQ/L (21.0-32.0); POTASSIUM 3.4 MEQ/L (3.5-5.1)
[2017-01-19] MEDS: traZODone HCL 100 MG TAB PO SCH (22:26)
[2017-01-19 22:32] LABS: CALCIUM-PROTEIN CORRECTED 8.1 MG/DL (8.5-10.1)
[2017-01-19] MEDS ORDERED: SODIUM BICARBONATE 8.4% INJ 100 MEQ, POTASSIUM CHLORIDE INJ 20 MEQ in SODIUM CHLOR 0.45... IV SCH (23:00)
[2017-01-20 01:20] LABS: BICARBONATE 16.6 MEQ/L (21.0-32.0); POTASSIUM 3.3 MEQ/L (3.5-5.1)
[2017-01-20] MEDS: HYDROmorphone HCL PF 1 MG/ML VIAL IV PRN ×3 (02:28→11:09)
[2017-01-20] MEDS ORDERED: LACTATED RINGER'S 1000 ML IV SCH (03:45)
[2017-01-20] MEDS ORDERED: INSULIN HUMAN REGULAR 1,000 UNITS/10 ML VIAL SQ PRN (03:45)
[2017-01-20] MEDS ORDERED: SODIUM CHLORID 0.9% 500 ML IV SCH (03:45)
[2017-01-20 04:00] VITALS: BP 193/89; PULSE 80; RESP 20; TEMP 98.9; O2SAT 98
[2017-01-20] MEDS: PROMETHAZINE HCL 25 MG TAB PO PRN ×2 (06:09→11:08)
[2017-01-20 07:00] VITALS: PULSE 76
--- NOTE | 2017-01-20 07:21 | HHI.FPPN ---
Subjective Remarks Patient was sleeping comfortably in bed, covered in multiple blankets. She continues to have nausea and abdominal pain but no shortness of breath or chest pain. She understands that she is having high outputs from her ostomy and is somewhat excited that she will have surgery today at 4:30 PM. However, she is concerned that she will not be able to drink anything until then. (HueyoArlin MD R1) Objective Vitals Vital Signs Date Time Temp Pulse Resp B/P Pulse Ox O2 Delivery O2 Flow Rate FiO2 01/20/17 04:00 98.9 80 20 193/89 98 01/19/17 23:53 98.0 74 17 195/84 100 01/19/17 21:03 98.3 74 17 175/80 100 01/19/17 19:23 16 01/19/17 15:51 98.2 78 14 142/72 98 01/19/17 12:31 98.2 75 18 146/66 97 01/19/17 10:00 75 01/19/17 07:55 97 21 01/19/17 07:23 97.6 85 18 139/63 97 I/O 01/19/17 01/19/17 01/19/17 01/20/17 01/20/17 01/20/17 07:00 15:00 23:00 07:00 15:00 23:00 Intake Total 840 ml 460 ml 720 ml 120 ml Output Total 1625 ml 750 ml Balance 840 ml 460 ml -905 ml -630 ml Intake Oral 720 ml 120 ml IV Total 840 ml 460 ml Output Urine Total 400 ml Stool Total 1225 ml 750 ml # Voids 3 (Arlin Gillespie MD R1) Result Diagram: 01/19/17 0536 01/20/17 0037 Objective Remarks GENERAL: Pale-appearing, thin, however alert and oriented to situation SKIN: Skin intact. Cool and dry HEAD: Normocephalic, atraumatic EYES: Pupils equal round and reactive. Extraocular motions intact. No scleral icterus. No injection or drainage ENT: Dry mucous membranes - continuously licking lips CARDIOVASCULAR: Faint heart sounds, tachycardic, regular rate RESPIRATORY: CTAB Breath sounds equal bilaterally. No wheezes, rales, or rhonchi GASTROINTESTINAL: Normal bowel sounds. Ileostomy in place over the right abdomen producing brown liquid. Surrounding skin was intact without erythema. No warmth surrounding the ostomy. Diffusely TTP over her abdomen - no guarding NEUROLOGICAL: Awake and alert. Cranial nerves II through XII grossly intact. Motor and sensory grossly within normal limits. Normal speech (Arlin Gillespie MD R1) A/P Assessment and Plan Ms. Rogers is a pleasant 66-year-old female, presenting with 6 days of abdominal pain, nausea, and persistent vomiting. On admission she was found to be in acute renal failure, with a creatinine of 3.25 (baseline 1.5). The lipase level was also elevated at 724 and she had a leukocytosis of 16.[address] performed in the ED was unremarkable. She was admitted to the family medicine team B, with a presumptive diagnosis of pancreatitis, gastroenteritis, as well as acute on chronic renal failure. Discharge Planning Discharge pending rehydration, normalization of electrolytes, clearance by colorectal surgery. wdw Dr. Smiley, PGY [address] Solomon (Arlin Gillespie MD R1) Attending Attestation Patient seen and examined. Case reviewed and discussed Agree with plan of care as discussed with me and documented in the resident note. (Ana Solomon MD) Problem List: (1) Metabolic acidosis Status: Resolved Plan: Patient presented with normal anion gap metabolic acidosis suspected to be hyperchloremic metabolic acidosis due to loss from excessive ostomy output -Bicarb on admission was 9.5, increased to 16.7 today -Venous blood gas pH increased to 7.35 today compared to 7.12 on 01/18 -Plan is to continue to replete bicarbonate and other electrolytes -Currently on 12/01 NS @ 42mls/hr with bicarbonate and 20 of K as well NS @ 84 mls/hr -Nephrology on board -Colorectal surgery on board, Dr. King has scheduled her for ileostomy closure today at 4:30 PM (2) Nausea Status: Acute Plan: -Suspect related to dehydration and electrolyte derangement from excessive ostomy output -Continue Phenergan 25 mg every 4 hours when necessary nausea/vomiting (3) Diffuse abdominal pain Status: Acute Plan: -May be due to pancreatitis, gastroenteritis, UTI -Dilaudid 0.5 mg IV every 4 hours for abdominal pain (4) Acute on chronic renal insufficiency Status: Resolved Plan: -Baseline creatinine level was 1.3-1.5 in September 2016. -Creatinine on admission was 3.25, with a BUN of 62 -Creatinine improving. 1.47 today 01/20 at 07:31 AM -We will continue to monitor with serial BMP every 6 hours until electrolyte derangements resolves -Ultrasound of kidneys performed on 01/18 shows extensive bilateral medullary nephrocalcinosis with atrophic left kidney and tingling of the cortex bilaterally. No hydronephrosis. Bladder unremarkable -Nephrology on board (5) Ileostomy in place Status: Acute Plan: -Monitor outputs and change ostomy bag as needed -Colorectal surgery on board, ileostomy closure scheduled for 4:30 PM today (6) COPD (chronic obstructive pulmonary disease) Status: Chronic Plan: -Albuterol 2.5 mg inhaler q 2 hr prn -Duonebs every 4 hours when necessary for shortness of breath or wheezing (7) Physical deconditioning Status: Acute Plan: -Physical therapy consulted to assist with out of bed -Patient may need to go to a assisted living facility or care home facility upon discharge -Case management consulted to help with discharge needs (8) Osteoporosis Status: Chronic Plan: -Hold bisphosphonate therapy at this time -Will restart once tolerating by mouth therapy and nausea has improved -Fall precautions in place (9) Depression Status: Chronic Plan: Resume home psychotropic meds as follows: -Bupropion 100 mg tablets twice a day -Prozac 10 mg daily -Trazodone 100 mg daily at bedtime. (10) HTN (hypertension) Status: Chronic Plan: -Pressure elevated on initial exam to 195/84 -Restart home Amlodipine 10mg PO daily -Clonidine 0.1 mg tablets every 6 hours for blood pressure greater than 180/90 -Hydralazine 10 mg PO TID when necessary blood pressure greater than 160/90 (11) FEN/ppx Status: Chronic Plan: Fluids: 1/2 NS @ 42mls/hr with bicarbonate and 20 of K as well as1/2 NS @ 84 mls/hr Electrolytes: Repeat BMP every 6 hours Nutrition: Currently nothing by mouth for surgery (Arlin Gillespie MD R1) Arlin Gillespie MD R1 Jan 20, 2017 07:21 Ana Solomon MD Jan 23, 2017 15:42
[2017-01-20 08:00] VITALS: BP 111/64; PULSE 60; RESP 17; TEMP 98.8; O2SAT 98
[2017-01-20 08:14] LABS: BICARBONATE 16.2 MEQ/L (21.0-32.0); POTASSIUM 3.8 MEQ/L (3.5-5.1)
[2017-01-20 08:44] LABS: CALCIUM-PROTEIN CORRECTED 8.5 MG/DL (8.5-10.1)
[2017-01-20] MEDS: ASPIRIN EC 81 MG TABEC PO SCH (09:00)
[2017-01-20] MEDS: CHOLECALCIFEROL (VIT D3) 1000 UNIT TAB PO SCH (09:00)
[2017-01-20] MEDS: POTASSIUM CHLORIDE 10 MEQ CONTROLLED RELEASE TAB PO SCH (09:00)
[2017-01-20] MEDS: buPROPion HCL 100 MG TAB PO SCH ×2 (09:07→21:00)
[2017-01-20] MEDS: SODIUM BICARBONATE 325 MG TAB PO SCH ×2 (09:08→21:00)
[2017-01-20] MEDS: FLUoxetine HCL 10 MG CAP PO SCH (09:08)
[2017-01-20] MEDS ORDERED: hydrALAZINE HCL 10 MG TAB PO PRN ×2 (09:15→10:00)
[2017-01-20 09:20] LABS: BLOOD GAS VENOUS BASE EXCESS -8.7 mmol/L (-2-2); BLOOD GAS VENOUS HCO3 16 mmol/L (22-26); BLOOD GAS VENOUS O2 CONTENT 8.2 Vol % (9.0-17.0); BLOOD GAS VENOUS O2 HGB SAT 53 % (70-76); BLOOD GAS VENOUS PCO2 29 mmHg (44-48); BLOOD GAS VENOUS PO2 28 mmHg (35-40); BLOOD GAS VENOUS pH 7.35 (7.360-7.400); CRITICAL VALUE YES; TEMP CORR TO 98.6
[2017-01-20 09:21] LABS: FIO2 21 %; OXYGEN DEVICE ROOM AIR; STAT NO
[2017-01-20 10:12] LABS: BICARBONATE 16.7 MEQ/L (21.0-32.0); POTASSIUM 3.9 MEQ/L (3.5-5.1)
--- NOTE | 2017-01-20 10:41 | HHI.NPPN ---
Subjective History of Present Illness The patient is a 66 yo [place] female who presented to the ED last evening with complaints of 6 days of nausea, vomiting, fatigue, a/nd poor oral intake. States she has lost weight over the past few weeks and has very little appetite. Has vomited 2-3x per day for the past 6 days. 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 States there have been plans to reverse this potentially during this admission. During her admission in June, nephrology was consulted to rule out a potential RTA given her multiple electrolyte abnormalities. Was determined at that visit that she likely had hyperchloremic acidosis related to her ileostomy. Says she has not followed with bleach plant operator since her previous admission. States she has been told that she has underlying CKD for some time, but again no bleach plant operator. Not sure of baseline SCr or staging of CKD. States her PCP, Dr. Hurley, has been monitoring. Has history of kidney stones and does mention that she has had surgical intervention of stones in the past--namely stenting and nephrostomy placement, but has had no complications from renal stones in many years. Does not follow with Urologist. When asked about atrophic kidney ( detected on US in Sep 2016), she says she is aware of this, but details of this remains unclear. PMHx of hypotension, nephrolithiasis, DDD, shingles. Does report a previous h/ o chronic NSAID use for many years that she stopped in June of last year. Interval History Pt feeling better today. Has had significant ileostomy output Reversal planned today at 1630 (Estefania Pierce) Review of Systems General Constitutional: Fatigue (Estefania Pierce) Gastrointestinal Gastrointestinal: Diarrhea (Estefania Pierce) Objective Data Data 01/19/17 01/20/17 19:00 07:00 Intake Total 460 ml 840 ml Output Total 2375 ml Balance 460 ml -1535 ml Intake Oral 840 ml IV Total 460 ml Output Urine Total 400 ml Stool Total 1975 ml # Voids 3 Vital Signs Date Time Temp Pulse Resp B/P Pulse Ox O2 Delivery O2 Flow Rate FiO2 01/20/17 08:00 98.8 60 17 111/64 98 01/20/17 04:00 98.9 80 20 193/89 98 01/19/17 23:53 98.0 74 17 195/84 100 01/19/17 21:03 98.3 74 17 175/80 100 01/19/17 19:23 16 01/19/17 15:51 98.2 78 14 142/72 98 01/19/17 12:31 98.2 75 18 146/66 97 (Estefania Pierce) -: 01/19/17 0536 01/20/17 0937 Medication Review Current Medications Medications (Trade) Dose Ordered Sig/Torri Route Start Time Stop Time Status Last Admin (NS Flush) 2 ml UNSCH PRN IVF 01/17/17 18:15 (Morphine Inj) 2 mg Q3H PRN IV 01/17/17 23:15 (Dilaudid Pf Inj) 0.5 mg Q4H PRN IV 01/18/17 02:30 01/20/17 06:33 (Catapres) 0.1 mg Q6H PRN PO 01/17/17 23:45 01/20/17 06:09 Potassium Chloride 40 meq 40 meq DAILY PO 01/18/17 10:00 01/19/17 10:02 (Rocephin Inj/NS Inj) 100 ml @ 200 mls/hr Q24H IV 01/18/17 12:00 01/19/17 14:09 Cholecalciferol 1000 units 1,000 units DAILY PO 01/18/17 18:00 01/19/17 10:03 (Sodium Bicarbonate 8.4% Inj/KCl Inj/1/2 NS 1000 ml Inj) 1,110 ml @ 42 mls/hr Q24H IV 01/19/17 23:00 01/20/17 00:10 (Sodium Bicarbonate) 325 mg Q12HR PO 01/19/17 21:00 01/20/17 09:08 (Wellbutrin) 100 mg BID PO 01/19/17 21:00 01/20/17 09:07 (PROzac) 10 mg DAILY PO 01/20/17 09:00 01/20/17 09:08 (Desyrel) 100 mg HS PO 01/19/17 21:00 01/19/17 22:26 (Ecotrin Ec) 81 mg DAILY PO 01/20/17 09:00 Promethazine HCl 25 mg 25 mg Q4H PRN PO 01/19/17 17:15 01/20/17 06:09 Sodium Chloride 1,000 ml @ 84 mls/hr [id number] IV 01/19/17 17:30 01/19/17 18:25 Lactated Ringer's 1,000 ml @ 30 mls/hr Q24H IV 01/20/17 03:45 (NS 500 ml Inj) 500 ml @ 30 mls/hr [id number] IV 01/20/17 03:45 01/21/17 03:44 (Apresoline) 10 mg Q8HR PRN PO 01/20/17 10:00 (Norvasc) 10 mg DAILY PO 01/20/17 10:00 (Estefania Pierce) Physical Exam General Appearance: No Acute Distress, Pale, Malnourished (Estefania Pierce) Pulmonary Resp Exam: Clear Bilaterally, Breath Sounds Equal, No Distress (Estefania Pierce) Cardiology CV Exam: Regular, Normal Sinus Rhythm (Estefania Pierce) Gastrointestinal/Abdomen GI Exam: Soft, Non-Tender (Estefania Pierce) Integumentary Skin Exam: Clear, Warm (Estefania Pierce) Extremeties Extremities Exam: No Edema (Estefania Pierce) Neurologic Neuro Exam: Alert, Awake, Oriented (Estefania Pierce) Psychiatric Psych Exam: Appropriate Responses (Estefania Pierce) Assessment/Plan Discussed Condition With: Patient Problem List: (1) Acute on chronic renal insufficiency Plan: Review of previous labs available, does appear that she has CKD stage 3 with baseline SCr of 1.4-1.6 since June 2016. Etiology not entirely clear, but does report heavy NSAID use in history. Of note, renal US from Sep 2016 shows medullary sponge kidney with nephrocalcinosis. She has an atrophied L kidney that by history appears to have been from a previous obstruction versus infection given her reported nephrostomy tube. Her acute renal decline is likely related to volume depletion from recent emesis as well as poor oral intake. Improving with IVF Continue on IVF. Monitor renal functions. Medications should be adjusted for the patient's renal decline. Avoid nephrotoxic medications including NSAIDs and iodinated contrast dyes. Avoid gadolinium when eGFR <30. (2) Congenital medullary sponge kidney Plan: Radiologic findings as well as a history of recurrent nephrolithiasis and urinary tract infections consistent with same. There is not always a familial history. I discussed with the patient the apparent diagnosis as well as its associated implications and need for regular followup with a bleach plant operator. (3) Nephrocalcinosis Plan: As per US from Sep 2016. Advised the patient importance of nephrology & urology f/u as outpatient. Will need metabolic urine study as she is at high risk of development of kidney stones. Await results of 24-hour urine calcium. As an outpatient recommended Litholink study as medullary sponge kidney can also be associated with hypocitraturia, hyperoxaluria. (4) Hyperchloremic metabolic acidosis Plan: Suspect primarily secondary to gastrointestinal bicarbonate fluid losses given the results of the urine anion gap. There may also be a component related to her renal insufficiency also however. Continue bicarbonate supplementation. Ileostomy reversal planned for today. Will continue to monitor labs and supplement as needed. (Estefania Pierce) Plan The exam, history, and the medical decision-making described in the above note were completed with the assistance of the PA-C. I reviewed and agree with the findings presented. (Edgardo Mccann MD) Estefania Pierce Jan 20, 2017 10:41 Edgardo Mccann MD Jan 21, 2017 16:54
[2017-01-20] MEDS: cefTRIAXone INJ 1,000 MG in SODIUM CHLORIDE 0.9% INJ 100 ML IV SCH (11:14)
[2017-01-20 12:25] VITALS: BP 119/61; PULSE 64; RESP 18; TEMP 97.8; O2SAT 98
[2017-01-20] MEDS ORDERED: SUGAMMADEX SODIUM 200 MG/2 ML VIAL IV PUSH ONE ×2 (13:22)
[2017-01-20] MEDS ORDERED: LACTATED RINGER'S 1000 ML INJ 1,000 ML IV ONE (13:22)
[2017-01-20] MEDS ORDERED: PROPOFOL 200 MG/20 ML AMP IV ONE (13:22)
[2017-01-20 14:09] LABS: BICARBONATE 17.2 MEQ/L (21.0-32.0); POTASSIUM 3.7 MEQ/L (3.5-5.1)
[2017-01-20 14:23] LABS: CALCIUM-PROTEIN CORRECTED 8.3 MG/DL (8.5-10.1)
[2017-01-20] MEDS ORDERED: FAMOTIDINE 20 MG/2 ML VIAL ONE (16:03)
[2017-01-20] MEDS ORDERED: DICLOFENAC SODIUM 37.5 MG/ML VIAL IV PUSH ONE (16:03)
[2017-01-20] MEDS ORDERED: METOCLOPRAMIDE HCL 10 MG/2 ML VIAL ONE (16:03)
[2017-01-20] MEDS ORDERED: MIDAZOLAM HCL 2 MG/2 ML VIAL ONE (16:03)
[2017-01-20] MEDS ORDERED: DEXAMETHASONE SOD PHOS 4 MG/ML VIAL ONE (16:03)
[2017-01-20] MEDS ORDERED: ACETAMINOPHEN 1000 MG/100 ML VIAL IV ONE (16:03)
[2017-01-20] MEDS ORDERED: ONDANSETRON HCL 4 MG/2 ML VIAL ONE (16:04)
--- NOTE | 2017-01-20 17:19 | HHI.PR ---
Immediate Post Op Note Procedure Date: Jan 20, 2017 Pre Op Diagnosis: Hx diverticulitis Post Op Diagnosis: Same Surgeon: Steven King Outside Maintenance Worker(s): Laurel Procedure: Expl Lap + seg SB resection, closure ileostomy, sigmoidoscopy Findings: adhesions, nl anastomosis Complications: None Specimen(s) removed: SB seg Estimated blood loss: min Anesthesia: General Drains: None IVF Patient to: PACU Patient Condition: Good Steven King MD Jan 20, 2017 17:19
[2017-01-20] MEDS ORDERED: fentaNYL CITRATE 250 MCG/5 ML AMP ONE (17:26)
[2017-01-20] MEDS ORDERED: *morphine SULFATE 8 MG/ML PERIprocedure ONLY ONE ×3 (17:27→17:48)
[2017-01-20] MEDS ORDERED: SODIUM CHLORIDE 0.9% FLUSH 5 ML FLUSH IVF PRN (17:30)
[2017-01-20] MEDS ORDERED: KETOROLAC TROMETHAMINE 30 MG/ML (IVP) VIAL IVP PRN (17:30)
[2017-01-20] MEDS ORDERED: BENZOCAINE 6 MG/MENTHOL 10 MG LOZENGE SUCK-ON PRN (17:30)
[2017-01-20] MEDS ORDERED: POTASSIUM CHLOR 20 MEQ PREMIX 100 ML IV PRN (17:30)
[2017-01-20] MEDS ORDERED: Post-op Orders (for Pharmacy) MISC XX ONE (17:30)
[2017-01-20] MEDS ORDERED: POTASSIUM CHLOR 40 MEQ PREMIX 100 ML IV PRN (17:30)
[2017-01-20] MEDS ORDERED: ACETAMINOPHEN 1000 MG/100 ML VIAL IV PRN (17:30)
[2017-01-20] MEDS ORDERED: ACETAMINOPHEN/HYDROcodone 325 MG/5 MG TAB PO PRN (17:30)
[2017-01-20] MEDS ORDERED: NALOXONE HCL 0.4 MG/ML AMP IV PRN (17:30)
[2017-01-20] MEDS ORDERED: ACETAMINOPHEN 325 MG TAB PO PRN (17:30)
[2017-01-20] MEDS ORDERED: ENALAPRILAT 1.25 MG/ML VIAL IV PRN (17:30)
[2017-01-20] MEDS ORDERED: ENALAPRILAT 2.5 MG/2 ML VIAL IV PRN (17:30)
[2017-01-20] MEDS: D5-NS + KCL 20 MEQ INJ 1,000 ML IV SCH (18:00)
[2017-01-20] MEDS ORDERED: *HYDROmorphone PF 1 MG VIAL PERIprocedural Use ONLY ONE (18:23)
[2017-01-20] MEDS: metroNIDAZOLE 500 MG INJ 100 ML IV SCH (18:30)
[2017-01-20 20:00] VITALS: BP 144/82; PULSE 84; RESP 14; TEMP 97.4; O2SAT 99
[2017-01-20] MEDS: METOCLOPRAMIDE HCL 10 MG/2 ML VIAL IVS SCH (21:00)
[2017-01-20] MEDS: traZODone HCL 100 MG TAB PO SCH (21:00)
[2017-01-20 21:09] LABS: BICARBONATE 18.1 MEQ/L (21.0-32.0); POTASSIUM 4.3 MEQ/L (3.5-5.1)
[2017-01-20 21:28] LABS: CALCIUM-PROTEIN CORRECTED 7.9 MG/DL (8.5-10.1)
[2017-01-20] MEDS: SODIUM CHLORIDE 0.9% FLUSH 5 ML FLUSH IVF SCH (23:52)
[2017-01-21] VITALS (7 sets, daily range): BP systolic 100–184; BP diastolic 55–86; PULSE 68–94; RESP 14–20; TEMP 97.1–99.8; O2SAT 92–100
[2017-01-21] MEDS: D5-NS + KCL 20 MEQ INJ 1,000 ML IV SCH ×3 (02:21→16:52)
[2017-01-21] MEDS: metroNIDAZOLE 500 MG INJ 100 ML IV SCH ×2 (02:22→10:00)
[2017-01-21] MEDS ORDERED: CALCIUM GLUCONATE 10% 1 GM/10 ML VIAL IV PUSH ONE (02:30)
[2017-01-21] MEDS: ACETAMINOPHEN/HYDROcodone 325 MG/5 MG TAB PO PRN ×3 (02:33→13:12)
[2017-01-21 07:32] LABS: AUTOMATED NEUTROPHIL # 8.3 TH/MM3 (1.8-7.7); BASOPHIL % 0.1 % (0.0-2.0); HEMATOCRIT 28.1 % (35.0-46.0); HEMO FLAGS DIFF FINAL; LYMPH % 12.6 % (9.0-44.0); LYMPHOCYTE # 1.3 TH/MM3 (1.0-4.8); MEAN CELL VOLUME 96.1 FL (80.0-100.0); MEAN CORPUSCULAR HEMOGLOBIN 31.8 PG (27.0-34.0); MEAN CORPUSCULAR HGB CONC 33.1 % (32.0-36.0); MONO % 3.9 % (0.0-8.0); NEUT % 83.4 % (16.0-70.0); PLATELET COUNT 191 TH/MM3 (150-450); RED BLOOD COUNT 2.93 MIL/MM3 (4.00-5.30); RED CELL DISTRIBUTION WIDTH 15.4 % (11.6-17.2); WHITE BLOOD COUNT 9.9 TH/MM3 (4.0-11.0)
[2017-01-21 08:04] LABS: BICARBONATE 17.1 MEQ/L (21.0-32.0); POTASSIUM 3.3 MEQ/L (3.5-5.1)
[2017-01-21 08:15] LABS: CALCIUM-PROTEIN CORRECTED 7.9 MG/DL (8.5-10.1)
[2017-01-21] MEDS: PANTOPRAZOLE SOD 40 MG DELAYED RELEASE TAB PO SCH (08:26)
[2017-01-21] MEDS: ASPIRIN EC 81 MG TABEC PO SCH (08:26)
[2017-01-21] MEDS: POTASSIUM CHLORIDE 10 MEQ CONTROLLED RELEASE TAB PO SCH (08:26)
[2017-01-21] MEDS: METOCLOPRAMIDE HCL 10 MG/2 ML VIAL IVS SCH ×2 (08:27→22:13)
[2017-01-21] MEDS: PANTOPRAZOLE SODIUM 40 MG VIAL IVP SCH (08:27)
[2017-01-21] MEDS: buPROPion HCL 100 MG TAB PO SCH ×2 (08:27→22:02)
[2017-01-21] MEDS: PROMETHAZINE HCL 25 MG TAB PO PRN ×2 (08:27→13:12)
[2017-01-21] MEDS: FLUoxetine HCL 10 MG CAP PO SCH (08:27)
[2017-01-21] MEDS: SODIUM BICARBONATE 325 MG TAB PO SCH ×2 (08:28→22:02)
[2017-01-21] MEDS: SODIUM CHLORIDE 0.9% FLUSH 5 ML FLUSH IVF SCH ×2 (08:28→21:00)
[2017-01-21] MEDS: CHOLECALCIFEROL (VIT D3) 1000 UNIT TAB PO SCH (08:28)
--- NOTE | 2017-01-21 14:32 | HHI.FPPN ---
Subjective Remarks No acute events overnight. Afebrile, patient hypertensive this morning to 184/ 86. Patient continues to complain of chronic back pain. She is tolerating small amounts of by mouth. She continues to complain of abdominal pain and nausea relieved with Phenergan. (Sumi Gentile MD R3) Objective Vitals Vital Signs Date Time Temp Pulse Resp B/P Pulse Ox O2 Delivery O2 Flow Rate FiO2 01/21/17 12:00 99.3 94 20 121/65 94 01/21/17 09:48 18 01/21/17 07:46 96 21 01/21/17 07:45 97.1 78 20 184/86 97 01/21/17 04:00 97.2 68 16 130/62 100 01/21/17 00:55 97.5 69 14 133/65 100 01/20/17 20:00 97.4 84 14 144/82 99 01/20/17 18:45 97.9 83 12 144/91 99 Nasal Cannula 3 01/20/17 18:30 80 12 153/92 99 Nasal Cannula 3 01/20/17 18:15 67 12 159/87 99 Nasal Cannula 3 01/20/17 18:00 81 12 154/85 99 Nasal Cannula 3 01/20/17 17:45 77 12 146/84 99 Nasal Cannula 3 01/20/17 17:30 92 12 147/87 98 Nasal Cannula 3 01/20/17 17:24 97.5 75 12 148/85 98 Nasal Cannula 3 I/O 01/20/17 01/20/17 01/20/17 01/21/17 01/21/17 01/21/17 07:00 15:00 23:00 07:00 15:00 23:00 Intake Total 120 ml 2410 ml 1468 ml 600 ml Output Total 750 ml 310 ml 475 ml 350 ml Balance -630 ml -310 ml 1935 ml 1118 ml 600 ml Intake Oral 120 ml 0 ml 600 ml IV Total 410 ml 1468 ml Other 2000 ml Output Urine Total 475 ml 350 ml Stool Total 750 ml 310 ml # Voids 3 # Bowel Movements 3 (Sumi Gentile MD R3) Result Diagram: 01/21/17 0715 01/21/17 0705 Objective Remarks GENERAL: Pale-appearing, thin, however alert and oriented to situation SKIN: Skin intact. Cool and dry HEAD: Normocephalic, atraumatic EYES: Pupils equal round and reactive. Extraocular motions intact. No scleral icterus. No injection or drainage ENT: Mucous membranes moist CARDIOVASCULAR: Faint heart sounds, regular rate and rhythm RESPIRATORY: CTAB Breath sounds equal bilaterally. No wheezes, rales, or rhonchi GASTROINTESTINAL: Normal bowel sounds. Mildly tender to palpation. Abdominal binder in place. NEUROLOGICAL: Awake and alert. Cranial nerves II through XII grossly intact. Motor and sensory grossly within normal limits. Normal speech (Sumi Gentile MD R3) A/P Assessment and Plan Ms. Rogers is a pleasant 66-year-old female, presenting with 6 days of abdominal pain, nausea, and persistent vomiting. On admission she was found to be in acute renal failure, with a creatinine of 3.25 (baseline 1.5). The lipase level was also elevated at 724 and she had a leukocytosis of 16.[address] performed in the ED was unremarkable. She was admitted to the family medicine team B, with a presumptive diagnosis of pancreatitis, gastroenteritis, as well as acute on chronic renal failure. Discharge Planning Discharge pending rehydration, normalization of electrolytes, clearance by colorectal surgery. (Sumi Gentile MD R3) Attending Attestation Patient seen and examined. Case reviewed and discussed Agree with plan of care as discussed with me and documented in the resident note. (Ana Solmoon MD) Problem List: (1) Metabolic acidosis Status: Resolved Plan: Patient presented with normal anion gap metabolic acidosis suspected to be hyperchloremic metabolic acidosis due to loss from excessive ostomy output. -Status post ileostomy takedown on 01/20 (2) Nausea Status: Acute Plan: -Suspect related to dehydration and electrolyte derangement from excessive ostomy output -Continue Phenergan 25 mg every 4 hours when necessary nausea/vomiting (3) Diffuse abdominal pain Status: Acute Plan: -Dilaudid 0.5 mg IV every 4 hours for abdominal pain (4) Acute on chronic renal insufficiency Status: Resolved Plan: Baseline creatinine level was 1.3-1.5 in September 2016. Creatinine on admission was 3.25, with a BUN of 62. 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 No hydronephrosis. Nephrology consulted, appreciate their recommendations Creatinine improved to baseline (5) COPD (chronic obstructive pulmonary disease) Status: Chronic Plan: -Albuterol 2.5 mg inhaler q 2 hr prn -Duonebs every 4 hours when necessary for shortness of breath or wheezing (6) Physical deconditioning Status: Acute Plan: -Physical therapy consulted to assist with out of bed -Patient may need to go to a assisted living facility or penitentiary facility upon discharge -Case management consulted to help with discharge needs (7) Osteoporosis Status: Chronic Plan: -Hold bisphosphonate therapy at this time -Will restart once tolerating by mouth therapy and nausea has improved -Fall precautions in place (8) Depression Status: Chronic Plan: Resume home psychotropic meds as follows: -Bupropion 100 mg tablets twice a day -Prozac 10 mg daily -Trazodone 100 mg daily at bedtime. (9) HTN (hypertension) Status: Chronic Plan: -Continue home Amlodipine 10mg PO daily -Clonidine 0.1 mg tablets every 6 hours for blood pressure greater than 180/90 -Hydralazine 10 mg PO TID when necessary blood pressure greater than 160/90 (10) FEN/ppx Status: Chronic Plan: Fluids: D5 NS +20 KCl at 1 50 cc/hour Electrolytes: Replete when necessary Nutrition: Advance as tolerated DVT prophylaxis: Heparin 5000 units every 8 hours (Sumi Gentile MD R3) Sumi Gentile MD R3 Jan 21, 2017 14:32 Ana Solomon MD Jan 23, 2017 15:41
[2017-01-21] MEDS ORDERED: ONDANSETRON ODT 4 MG TAB PO ONE (16:00)
[2017-01-21] MEDS: ONDANSETRON HCL 4 MG/2 ML VIAL IV PRN (16:15)
[2017-01-21] MEDS: MORPHINE SULFATE 30 MG CONTROLLED RELEASE TAB PO SCH ×2 (16:16→21:00)
[2017-01-21] MEDS: oxyCODONE/ACETAMINOPHEN 10 MG/325 MG TAB PO PRN ×2 (16:16→22:20)
[2017-01-21] MEDS: cefTRIAXone INJ 1,000 MG in SODIUM CHLORIDE 0.9% INJ 100 ML IV SCH (16:17)
--- NOTE | 2017-01-21 16:56 | HHI.NPPN ---
Subjective History of Present Illness The patient is a 66 yo [place] female who presented to the ED last evening with complaints of 6 days of nausea, vomiting, fatigue, a/nd poor oral intake. States she has lost weight over the past few weeks and has very little appetite. Has vomited 2-3x per day for the past 6 days. 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 States there have been plans to reverse this potentially during this admission. During her admission in June, nephrology was consulted to rule out a potential RTA given her multiple electrolyte abnormalities. Was determined at that visit that she likely had hyperchloremic acidosis related to her ileostomy. Says she has not followed with education program associate since her previous admission. States she has been told that she has underlying CKD for some time, but again no education program associate. Not sure of baseline SCr or staging of CKD. States her PCP, Dr. Hurley, has been monitoring. Has history of kidney stones and does mention that she has had surgical intervention of stones in the past--namely stenting and nephrostomy placement, but has had no complications from renal stones in many years. Does not follow with Urologist. When asked about atrophic kidney ( detected on US in Sep 2016), she says she is aware of this, but details of this remains unclear. PMHx of hypotension, nephrolithiasis, DDD, shingles. Does report a previous h/ o chronic NSAID use for many years that she stopped in June of last year. Interval History Patient seen post ileostomy reversal. Complaining of being tired. Review of Systems General Constitutional: Fatigue Gastrointestinal Gastrointestinal: Diarrhea Objective Data Data 01/20/17 01/21/17 19:00 07:00 Intake Total 2410 ml 1468 ml Output Total 785 ml 350 ml Balance 1625 ml 1118 ml Intake Oral 0 ml IV Total 410 ml 1468 ml Other 2000 ml Output Urine Total 475 ml 350 ml Stool Total 310 ml Vital Signs Date Time Temp Pulse Resp B/P Pulse Ox O2 Delivery O2 Flow Rate FiO2 01/21/17 16:00 99.8 88 20 100/57 92 01/21/17 12:00 99.3 94 20 121/65 94 01/21/17 09:48 18 01/21/17 07:46 96 21 01/21/17 07:45 97.1 78 20 184/86 97 01/21/17 04:00 97.2 68 16 130/62 100 01/21/17 00:55 97.5 69 14 133/65 100 01/20/17 20:00 97.4 84 14 144/82 99 01/20/17 18:45 97.9 83 12 144/91 99 Nasal Cannula 3 01/20/17 18:30 80 12 153/92 99 Nasal Cannula 3 01/20/17 18:15 67 12 159/87 99 Nasal Cannula 3 01/20/17 18:00 81 12 154/85 99 Nasal Cannula 3 01/20/17 17:45 77 12 146/84 99 Nasal Cannula 3 01/20/17 17:30 92 12 147/87 98 Nasal Cannula 3 01/20/17 17:24 97.5 75 12 148/85 98 Nasal Cannula 3 -: 01/21/17 0715 01/21/17 0705 Physical Exam General Appearance: No Acute Distress, Pale, Malnourished Appearance Remarks Appears older than stated age. Pulmonary Resp Exam: Clear Bilaterally, Breath Sounds Equal, No Distress Cardiology CV Exam: Regular, Normal Sinus Rhythm Gastrointestinal/Abdomen GI Exam: Soft, Non-Tender Integumentary Skin Exam: Clear, Warm Extremeties Extremities Exam: No Edema Neurologic Neuro Exam: Alert, Awake, Oriented Psychiatric Psych Exam: Appropriate Responses Assessment/Plan Discussed Condition With: Patient Problem List: (1) Acute on chronic renal insufficiency Plan: Acute component of renal insufficiency appears to have resolved. Agree with supplementing electrolytes as indicated. Increase by mouth bicarbonate. Review of previous labs available, does appear that she has CKD stage 3 with baseline SCr of 1.4-1.6 since June 2016. Etiology not entirely clear, but does report heavy NSAID use in history. Of note, renal US from Sep 2016 shows medullary sponge kidney with nephrocalcinosis. She has an atrophied L kidney that by history appears to have been from a previous obstruction versus infection given her reported nephrostomy tube. Medications should be adjusted for the patient's renal decline. Avoid nephrotoxic medications including NSAIDs and iodinated contrast dyes. Avoid gadolinium when eGFR <30. Patient will be seen when necessary at this point in time. Instructed to follow -up with us in the office post discharge. (2) Congenital medullary sponge kidney Plan: Radiologic findings as well as a history of recurrent nephrolithiasis and urinary tract infections consistent with same. There is not always a familial history. I discussed with the patient the apparent diagnosis as well as its associated implications and need for regular followup with a education program associate. (3) Nephrocalcinosis Plan: As per US from Sep 2016. Advised the patient importance of nephrology & urology f/u as outpatient. Will need metabolic urine study as she is at high risk of development of kidney stones. Await results of 24-hour urine calcium. As an outpatient recommended Litholink study as medullary sponge kidney can also be associated with hypocitraturia, hyperoxaluria. (4) Hyperchloremic metabolic acidosis Plan: Suspect primarily secondary to gastrointestinal bicarbonate fluid losses given the results of the urine anion gap. There may also be a component related to her renal insufficiency also however. Continue bicarbonate supplementation. Ileostomy reversal planned for today. Will continue to monitor labs and supplement as needed. Plan The exam, history, and the medical decision-making described in the above note were completed with the assistance of the XENIA. I reviewed and agree with the findings presented. Edgardo Mccann MD Jan 21, 2017 16:55
[2017-01-21] MEDS ORDERED: metroNIDAZOLE 500 MG INJ 100 ML IV ONE (17:00)
[2017-01-21] MEDS: traZODone HCL 100 MG TAB PO SCH (22:03)
[2017-01-21] MEDS: HEPARIN SODIUM - SQ 10,000 UNITS/ML VIAL SQ SCH (22:05)
--- NOTE | 2017-01-21 22:51 | HHI.PR ---
Subjective Remarks C/R Surg - POD #1 afebrile, VSS benito small am't PO +BM UO good Objective - Vital Signs Date Time Temp Pulse Resp B/P Pulse Ox O2 Delivery O2 Flow Rate FiO2 01/21/17 20:10 97.2 94 20 110/55 94 01/21/17 07:46 21 01/20/17 18:45 Nasal Cannula 3 Result Diagram: 01/21/17 0715 01/21/17 0705 Objective Remarks PE alert Abd - soft, non-tender, min tympany, wound dry A/P Assessment and Plan Imp: better renal function OOB PT stable post-op Steven King MD Jan 21, 2017 22:51
[2017-01-22] VITALS (8 sets, daily range): BP systolic 86–121; BP diastolic 53–72; PULSE 65–89; RESP 16–20; TEMP 96.9–98.3; O2SAT 94–98
[2017-01-22 01:11] LABS: BICARBONATE 19.2 MEQ/L (21.0-32.0); POTASSIUM 3.5 MEQ/L (3.5-5.1)
[2017-01-22 01:36] LABS: CALCIUM-PROTEIN CORRECTED 8.1 MG/DL (8.5-10.1)
[2017-01-22] MEDS: HEPARIN SODIUM - SQ 10,000 UNITS/ML VIAL SQ SCH ×3 (05:27→21:05)
[2017-01-22] MEDS: D5-NS + KCL 20 MEQ INJ 1,000 ML IV SCH ×2 (05:30→20:59)
[2017-01-22 05:35] LABS: CALCIUM - URINE TIMED 9.5 MG/DL
--- NOTE | 2017-01-22 08:28 | MP ---
cc: SARA HANSON M.D. DATE OF SURGERY January 20, 2017 PREOPERATIVE DIAGNOSIS History of diverticulitis with ileostomy. PROCEDURE 1. Exploratory laparotomy with segmental small bowel resection and closure of ileostomy. 2. Sigmoidoscopy. POSTOPERATIVE DIAGNOSES 1. History of diverticulitis with ileostomy. 2. Normal colorectal anastomosis. SURGEON Dr. Hanson ASSESSMENT Dr. Stuart Barragan PROCEDURE The patient was placed in the supine position. After adequate general anesthesia, her abdomen was prepped with Betadine solution and draped in the usual sterile fashion. With Dr. Barragan's assistance, an elliptical incision was made around the ileostomy in the proximal and distal limbs dissected free from the subcutaneous tissue. The fascial attachments were released and the bowel mobilized up into the abdominal wall. Proximal and distal limbs were identified and an avascular plane created in the mesentery, the distal limb divided between Kochers, the proximal limb divided using a JANAE stapling device. The intervening mesentery was taken between Yuli's obtaining hemostasis with Vicryl ties. Bowel continuity was then restored by firing the JANAE stapler across the antimesenteric ends of the bowel, closing the enterotomy with a TA-60 stapler. The mesenteric defect was closed with a Vicryl suture and a 3-0 Vicryl crotch suture was placed as well. The bowel was returned to the abdominal cavity. Additional adhesions to the parietal peritoneum were taken down. The abdominal incision was closed in two layers using #1 PDS sutures to reapproximate the respective fascial layers. The subcu tissues were irrigated copiously and the skin closed with a running subcuticular Vicryl suture. The wound area was washed with normal saline and dried, sterile dressing of Telfa and gauze applied. The patient tolerated the previous procedure quite well and was brought to the recovery room in stable condition. Sponge and needle counts were correct at the end of the procedure. MD JANEEN Mendez/UNA /11:11 PM /8:12 AM
[2017-01-22] MEDS: SODIUM CHLORIDE 0.9% FLUSH 5 ML FLUSH IVF SCH ×2 (09:00→21:00)
[2017-01-22] MEDS: PANTOPRAZOLE SODIUM 40 MG VIAL IVP SCH (09:00)
[2017-01-22] MEDS: POTASSIUM CHLORIDE 10 MEQ CONTROLLED RELEASE TAB PO SCH (09:08)
[2017-01-22] MEDS: PANTOPRAZOLE SOD 40 MG DELAYED RELEASE TAB PO SCH (09:09)
[2017-01-22] MEDS: SODIUM BICARBONATE 325 MG TAB PO SCH ×2 (09:09→21:00)
[2017-01-22] MEDS: CHOLECALCIFEROL (VIT D3) 1000 UNIT TAB PO SCH (09:09)
[2017-01-22] MEDS: buPROPion HCL 100 MG TAB PO SCH ×2 (09:09→21:00)
[2017-01-22] MEDS: MORPHINE SULFATE 30 MG CONTROLLED RELEASE TAB PO SCH ×2 (09:09→21:00)
[2017-01-22] MEDS: ASPIRIN EC 81 MG TABEC PO SCH (09:10)
[2017-01-22] MEDS: METOCLOPRAMIDE HCL 10 MG/2 ML VIAL IVS SCH ×2 (09:10→21:02)
[2017-01-22] MEDS: FLUoxetine HCL 10 MG CAP PO SCH (09:10)
[2017-01-22 09:47] LABS: AUTOMATED NEUTROPHIL # 4.6 TH/MM3 (1.8-7.7); BASOPHIL % 0.2 % (0.0-2.0); EOSINOPHIL # 0.2 TH/MM3 (0-0.4); EOSINOPHIL % 2.3 % (0.0-4.0); HEMO FLAGS DIFF FINAL; LYMPH % 34.4 % (9.0-44.0); LYMPHOCYTE # 2.8 TH/MM3 (1.0-4.8); MEAN CELL VOLUME 97.7 FL (80.0-100.0); MEAN CORPUSCULAR HEMOGLOBIN 31.5 PG (27.0-34.0); MEAN CORPUSCULAR HGB CONC 32.3 % (32.0-36.0); MONO % 7.4 % (0.0-8.0); NEUT % 55.7 % (16.0-70.0); PLATELET COUNT 179 TH/MM3 (150-450); RED BLOOD COUNT 2.87 MIL/MM3 (4.00-5.30); RED CELL DISTRIBUTION WIDTH 15.5 % (11.6-17.2); WHITE BLOOD COUNT 8.3 TH/MM3 (4.0-11.0)
--- NOTE | 2017-01-22 10:17 | HHI.FPPN ---
Subjective Remarks Ms Rogers was lying in bed this morning, appeared uncomfortable, states that she had a lot of nausea even 30 minutes after receiving IV phernegan. She has not vomited but continues to have abdominal pain. She denies fever but continues to feel cold. She had a bowel movement yesterday. She would like to eat yoghurt with fruit already mixed in. Her chronic pain is well controlled on her home oral pain regimen which was started yesterday. (EkoArlin MD R1) Objective Vitals Vital Signs Date Time Temp Pulse Resp B/P Pulse Ox O2 Delivery O2 Flow Rate FiO2 01/22/17 08:19 98.1 69 16 105/58 96 01/22/17 04:55 67 01/22/17 04:10 96.9 65 20 98/56 94 01/22/17 00:12 97.1 86 16 100/58 94 01/22/17 00:09 16 01/21/17 20:10 97.2 94 20 110/55 94 01/21/17 18:38 18 01/21/17 16:00 99.8 88 20 100/57 92 01/21/17 12:00 99.3 94 20 121/65 94 I/O 01/21/17 01/21/17 01/21/17 01/22/17 01/22/17 01/22/17 07:00 15:00 23:00 07:00 15:00 23:00 Intake Total 1468 ml 840 ml 600 ml 240 ml Output Total 350 ml 450 ml 750 ml 600 ml Balance 1118 ml 390 ml -150 ml -360 ml Intake Oral 840 ml 600 ml 240 ml IV Total 1468 ml Output Urine Total 350 ml 450 ml 750 ml 600 ml # Bowel Movements 3 1 (EkArlin france MD R1) Result Diagram: 01/22/17 0854 01/21/17 8755 Objective Remarks GENERAL: Pale-appearing, thin, however alert and oriented to situation SKIN: Skin intact. Cool and dry HEAD: Normocephalic, atraumatic EYES: Pupils equal round and reactive. Extraocular motions intact. No scleral icterus. No injection or drainage ENT: Mucous membranes moist CARDIOVASCULAR: Faint heart sounds, regular rate and rhythm RESPIRATORY: CTAB Breath sounds equal bilaterally but poor effort. No wheezes, rales, or rhonchi GASTROINTESTINAL: Normal bowel sounds. Moderately tender to palpation. Abdominal incision covered with dressing, no binder NEUROLOGICAL: Awake and alert. Cranial nerves II through XII grossly intact. Motor and sensory grossly within normal limits. Normal speech (Arlin Gillespie MD R1) A/P Assessment and Plan Ms. Rogers is a pleasant 66-year-old female, that presented with 6 days of abdominal pain, nausea, and persistent vomiting. On admission she was found to be in acute renal failure, with a creatinine of 3.25 (baseline 1.5). The lipase level was also elevated at 724 and she had a leukocytosis of 16.[address] performed in the ED was unremarkable. She was admitted to the family medicine team B, with a presumptive diagnosis of pancreatitis, gastroenteritis, as well as acute on chronic renal failure. Ileostomy takedown was performed on 01/20 (post-op day 2) with no complications. Seen and examined with Dr. Smiley, PGY 2. Discussed with Dr. Solomon. Discharge Planning Discharge pending rehydration, normalization of electrolytes, clearance by colorectal surgery. (Arlin Gillespie MD R1) Problem List: (1) Metabolic acidosis Status: Resolved Plan: Patient presented with normal anion gap metabolic acidosis suspected to be hyperchloremic metabolic acidosis due to loss from excessive ostomy output. -Status post ileostomy takedown on 01/20 -Metabolic derangements are slowly improving (2) Nausea Status: Acute Plan: -Suspect related to dehydration and electrolyte derangement from excessive ostomy output -Continue Phenergan 25 mg every 4 hours when necessary nausea/vomiting (3) Diffuse abdominal pain Status: Acute Plan: -Controlled on home pain medication regimen (4) Acute on chronic renal insufficiency Status: Resolved Plan: Baseline creatinine level was 1.3-1.5 in September 2016. Creatinine on admission was 3.25, with a BUN of 62. 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 No hydronephrosis. Nephrology consulted, appreciate their recommendations Creatinine improved to baseline (5) COPD (chronic obstructive pulmonary disease) Status: Chronic Plan: -Albuterol 2.5 mg inhaler q 2 hr prn -Duonebs every 4 hours when necessary for shortness of breath or wheezing (6) Physical deconditioning Status: Acute Plan: -Physical therapy consulted to assist with out of bed -Physical therapy recommends discharge to rehabilitation facility -Case management consulted to help with discharge needs (7) Osteoporosis Status: Chronic Plan: -Hold bisphosphonate therapy at this time -Will restart once tolerating by mouth therapy and nausea has improved -Fall precautions in place (8) Depression Status: Chronic Plan: Resume home psychotropic meds as follows: -Bupropion 100 mg tablets twice a day -Prozac 10 mg daily -Trazodone 100 mg daily at bedtime. (9) HTN (hypertension) Status: Chronic Plan: -Continue home Amlodipine 10mg PO daily -Clonidine 0.1 mg tablets every 6 hours for blood pressure greater than 180/90 -Hydralazine 10 mg PO TID when necessary blood pressure greater than 160/90 (10) FEN/ppx Status: Chronic Plan: Fluids: D5 NS +20 KCl at 80 cc/hour Electrolytes: Monitoring and will replete as needed Nutrition: Advance as tolerated DVT prophylaxis: Heparin 5000 units every 8 hours (Arlin Gillespie MD R1) Arlin Gillespie MD R1 Jan 22, 2017 10:17 Ana Solomon MD Jan 23, 2017 15:41
[2017-01-22 10:46] LABS: BICARBONATE 18.9 MEQ/L (21.0-32.0); MAGNESIUM 1.4 MG/DL (1.5-2.5); POTASSIUM 3.8 MEQ/L (3.5-5.1)
[2017-01-22 11:09] LABS: CALCIUM-PROTEIN CORRECTED 8.2 MG/DL (8.5-10.1)
[2017-01-22] MEDS: cefTRIAXone INJ 1,000 MG in SODIUM CHLORIDE 0.9% INJ 100 ML IV SCH (11:37)
[2017-01-22] MEDS: MAGNESIUM SULFATE 1 GM PREMIX 100 ML IV SCH ×2 (14:36→15:58)
[2017-01-22] MEDS: ONDANSETRON HCL 4 MG/2 ML VIAL IV PRN ×2 (14:49→21:15)
[2017-01-22] MEDS: oxyCODONE/ACETAMINOPHEN 10 MG/325 MG TAB PO PRN (14:49)
[2017-01-22] MEDS ORDERED: CALCIUM GLUCONATE INJ 2 GM in SODIUM CHLORIDE 0.9% INJ 100 ML IV ONE (15:00)
[2017-01-22 18:07] LABS: BLOOD, URINE NEG (NEG); COMMENT (UR) CULT NOT INDICATED; CULTURE IF INDICATED CULT NOT INDICATED; GLUCOSE,URINE NEG (NEG); HYALINE CAST, URINE 1 /lpf (RARE); KETONE, URINE NEG (NEG); MUCUS URINE FEW /lpf (OCC); NITRITE,URINE NEG (NEG); PH, URINE 5.5 (5.0-8.5); URINE COLOR LIGHT-YELLOW (YELLW/STRAW)
--- NOTE | 2017-01-22 19:53 | RADRPT ---
EXAM DATE/TIME: 01/22/2017 19:32 [facility] COMPARISON: CHEST SINGLE AP, January 18, 2017, 0:20. INDICATIONS : Evaluate consolidation MEDICAL HISTORY : Chronic obstructive pulmonary disease. SURGICAL HISTORY : None. ENCOUNTER: Initial ACUITY: 4 - 6 days PAIN SCORE: 0/10 LOCATION: Bilateral chest FINDINGS: Relative to prior examination patient has developed I. basilar opacities more prominent on the right particularly in the right middle lobe suggesting infiltrate and bilateral view consistent with a smal l associated effusions. CONCLUSION: Development of bibasilar opacities most likely representing fine parenchymal infiltrate particular th e right middle lobe and associated small bilateral pleural effusions in the posterior gutters. Alon Phillips MD on January 22, 2017 at 19:50 Board Certified Radiologist. This report was verified electronically.
[2017-01-22] MEDS: traZODone HCL 100 MG TAB PO SCH (21:00)
--- NOTE | 2017-01-22 23:31 | HHI.PR ---
Subjective Remarks C/R Surg - POD #2 afebrile, VSS benito small am't PO +BM UO good Objective - Vital Signs Date Time Temp Pulse Resp B/P Pulse Ox O2 Delivery O2 Flow Rate FiO2 01/22/17 22:46 16 01/22/17 20:24 97.5 74 96/55 94 01/21/17 07:46 21 01/20/17 18:45 Nasal Cannula 3 Result Diagram: 01/22/17 0854 01/22/17 0854 Objective Remarks PE alert Abd - soft, non-tender, min tympany, wound dry A/P Assessment and Plan Imp: better renal function OOB PT adv diet Steven King MD Jan 22, 2017 23:31
[2017-01-23] VITALS (8 sets, daily range): BP systolic 87–109; BP diastolic 51–66; PULSE 74–89; RESP 16–18; TEMP 97.9–98.9; O2SAT 90–95
[2017-01-23] MEDS: HEPARIN SODIUM - SQ 10,000 UNITS/ML VIAL SQ SCH ×3 (06:00→21:41)
[2017-01-23 07:34] LABS: HEMATOCRIT 29.5 % (35.0-46.0); MEAN CELL VOLUME 97.3 FL (80.0-100.0); MEAN CORPUSCULAR HEMOGLOBIN 31.4 PG (27.0-34.0); MEAN CORPUSCULAR HGB CONC 32.3 % (32.0-36.0); PLATELET COUNT 190 TH/MM3 (150-450); RED BLOOD COUNT 3.03 MIL/MM3 (4.00-5.30); RED CELL DISTRIBUTION WIDTH 15.5 % (11.6-17.2); REVIEW FLAG FINAL; WHITE BLOOD COUNT 8.7 TH/MM3 (4.0-11.0)
[2017-01-23 08:08] LABS: ALKALINE PHOSPHATASE 74 U/L (45-117); ALT (GPT) LESS THAN 6 U/L (10-53); ANION GAP 6 MEQ/L (5-15); AST (GOT) 4 U/L (15-37); BICARBONATE 21.1 MEQ/L (21.0-32.0); BLOOD UREA NITROGEN 5 MG/DL (7-18); CALCIUM-PROTEIN CORRECTED 8.6 MG/DL (8.5-10.1); CHLORIDE 118 MEQ/L (98-107); GLOMERULAR FILTRATION RATE 48 ML/MIN (>89); MAGNESIUM 1.8 MG/DL (1.5-2.5); POTASSIUM 3.8 MEQ/L (3.5-5.1); SODIUM (NA) 145 MEQ/L (136-145); TOTAL BILIRUBIN ADULT 0.2 MG/DL (0.2-1.0)
--- NOTE | 2017-01-23 08:42 | HHI.FPPN ---
Subjective Remarks Patient states she is "doing good"this morning. She is resting comfortably and got a good night sleep. She states she is using her incentive spirometer during commercial breaks. She is getting out of bed to the bathroom. She has not been getting out of bed to a chair. This was encouraged. She is concerned about the yogurt that is provided and wishes fruit would be in it. No cough, fever, chills, shortness of breath. She has had 2 bowel movements in 24 hours. (Castro Smiley MD R2) Objective Vitals Vital Signs Date Time Temp Pulse Resp B/P Pulse Ox O2 Delivery O2 Flow Rate FiO2 01/23/17 08:17 98.1 75 16 92/53 94 01/23/17 04:33 97.9 74 18 99/66 90 01/23/17 01:43 100/51 01/23/17 00:05 98.6 76 18 87/53 91 01/22/17 22:46 16 01/22/17 20:24 97.5 74 18 96/55 94 01/22/17 16:07 98.3 81 16 89/53 94 01/22/17 13:19 97.9 85 16 86/56 94 I/O 01/22/17 01/22/17 01/22/17 01/23/17 01/23/17 01/23/17 07:00 15:00 23:00 07:00 15:00 23:00 Intake Total 240 ml 360 ml 480 ml 240 ml Output Total 600 ml 700 ml 350 ml 300 ml Balance -360 ml -340 ml 130 ml -60 ml Intake Oral 240 ml 360 ml 480 ml 240 ml Output Urine Total 600 ml 700 ml 350 ml 300 ml # Bowel Movements 1 1 (Castro Smiley MD R2) Result Diagram: 01/23/1718 01/23/17 0618 Imaging Last Impressions Chest X-Ray 01/22/17 0000 Signed Impressions: Service Date/Time: December 19:32 - CONCLUSION: Development of bibasilar opacities most likely representing fine parenchymal infiltrate particular the right middle lobe and associated small bilateral pleural effusions in the posterior gutters. Alon Phillips MD Renal Ultrasound 01/18/17 0000 Signed Impressions: Service Date/Time: Wednesday, January 18, 2017 18:05 - CONCLUSION: 1. Extensive medullary nephrocalcinosis. Atrophic kidneys. No hydronephrosis. Jerald Lau MD Head CT 01/17/17 2223 Signed Impressions: Service Date/Time: Tuesday, January 17, 2017 23:21 - CONCLUSION: No evidence of acute intracranial pathology. No masses are identified. Sushant Woods MD Abdomen/Pelvis CT 01/17/17 1803 Signed Impressions: Service Date/Time: Tuesday, January 17, 2017 18:13 - CONCLUSION: 1. No acute findings compared with July 2016. No obstruction, free fluid or free air. Ostomy right lower quadrant. Jerald Lau MD Objective Remarks GENERAL: Pale-appearing, thin, however alert and oriented to situation SKIN: Skin intact. Cool and dry HEAD: Normocephalic, atraumatic EYES: Pupils equal round and reactive. Extraocular motions intact. No scleral icterus. No injection or drainage ENT: Mucous membranes moist CARDIOVASCULAR: Faint heart sounds, regular rate and rhythm RESPIRATORY: CTAB Breath sounds equal bilaterally but poor effort. No wheezes, rales, or rhonchi GASTROINTESTINAL: Normal bowel sounds. Moderately tender to palpation. Abdominal incision covered with dressing, no binder NEUROLOGICAL: Awake and alert. Cranial nerves II through XII grossly intact. Motor and sensory grossly within normal limits. Normal speech (Castro Smiley MD R2) A/P Assessment and Plan Ms. Rogers is a pleasant 66-year-old female, that presented with 6 days of abdominal pain, nausea, and persistent vomiting. On admission she was found to be in acute renal failure, with a creatinine of 3.25 (baseline 1.5). The lipase level was also elevated at 724 and she had a leukocytosis of 16.[address] performed in the ED was unremarkable. She was admitted to the family medicine team B, with a presumptive diagnosis of pancreatitis, gastroenteritis, as well as acute on chronic renal failure. Ileostomy takedown was performed on 01/20 (post-op day 2) with no complications. Seen and examined with Dr. Smiley, PGY 2. Discussed with Dr. Solomon. Discharge Planning Discharge pending clearance by colorectal surgery. We'll need follow-up with nephrology. PT recommends PT and rehabilitation. Patient is discussing with case management whether to go to [facility] versus home. (Castro Smiley MD R2) Attending Attestation Patient seen and examined. Case reviewed and discussed Agree with plan of care as discussed with me and documented in the resident note. (Ana Solomon MD) Problem List: (1) UTI (urinary tract infection) Status: Acute Plan: Urine micro growing E. Coli Currently on ceftriaxone 1 g every 24 hours IV (started 01/18) (2) History of diverticulitis Status: Acute Plan: Patient has history of diverticulitis. She developed high-output ileostomy. She is now status post exploratory laparotomy with segmental small bowel resection and closure of ileostomy. Postoperative day #3. Colorectal surgery following Pain management: Morphine sulfate 30 mg by mouth twice a day; Percocet 1 tab by mouth every 6 hours pain 3-10 Bowel regimen: Reglan 10 mg IV every 12 hours Zofran for nausea Advance diet as tolerated per colorectal surgery (3) Acute on chronic renal insufficiency Status: Resolved Plan: Nephrology consulted, appreciate their recommendations Creatinine improved to baseline -Patient is to follow-up with nephrology as an outpatient. 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 (4) COPD (chronic obstructive pulmonary disease) Status: Chronic Plan: -Albuterol 2.5 mg inhaler q 2 hr prn -Duonebs every 4 hours when necessary for shortness of breath or wheezing (5) Physical deconditioning Status: Acute Plan: -Physical therapy consulted to assist with out of bed -Physical therapy recommends discharge to rehabilitation facility (6) Osteoporosis Status: Chronic Plan: -Hold bisphosphonate therapy at this time -Will restart once tolerating by mouth therapy and nausea has improved -Fall precautions in place (7) Depression Status: Chronic Plan: Resume home psychotropic meds as follows: -Bupropion 100 mg tablets twice a day -Prozac 10 mg daily -Trazodone 100 mg daily at bedtime. (8) HTN (hypertension) Status: Chronic Plan: -Continue home Amlodipine 10mg PO daily -Clonidine 0.1 mg tablets every 6 hours for blood pressure greater than 180/90 -Hydralazine 10 mg PO TID when necessary blood pressure greater than 160/90 (9) FEN/ppx Status: Chronic Plan: Fluids: D5 NS +20 KCl at 60 cc/hour Electrolytes: Monitoring and will replete as needed Nutrition: Advance as tolerated DVT prophylaxis: Heparin 5000 units every 8 hours (10) Metabolic acidosis Status: Resolved Plan: Patient presented with normal anion gap metabolic acidosis suspected to be hyperchloremic metabolic acidosis due to loss from excessive ostomy output. -Status post ileostomy takedown on 01/20 -Metabolic derangements are slowly improving (Castro Smiley MD R2) Problem List: (1) History of diverticulitis Status: Acute Plan: Patient has history of diverticulitis. She developed high-output ileostomy. She is now status post exploratory laparotomy with segmental small bowel resection and closure of ileostomy. Postoperative day #3. Colorectal surgery following Pain management: Morphine sulfate 30 mg by mouth twice a day; Percocet 1 tab by mouth every 6 hours pain 3-10 Bowel regimen: Reglan 10 mg IV every 12 hours Zofran for nausea Advance diet as tolerated per colorectal surgery Currently on ceftriaxone 1 g every 24 hours IV (started 01/18) (2) Acute on chronic renal insufficiency Status: Resolved Plan: Nephrology consulted, appreciate their recommendations Creatinine improved to baseline -Patient is to follow-up with nephrology as an outpatient. 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 (3) COPD (chronic obstructive pulmonary disease) Status: Chronic Plan: -Albuterol 2.5 mg inhaler q 2 hr prn -Duonebs every 4 hours when necessary for shortness of breath or wheezing (4) Physical deconditioning Status: Acute Plan: -Physical therapy consulted to assist with out of bed -Physical therapy recommends discharge to rehabilitation facility (5) Osteoporosis Status: Chronic Plan: -Hold bisphosphonate therapy at this time -Will restart once tolerating by mouth therapy and nausea has improved -Fall precautions in place (6) Depression Status: Chronic Plan: Resume home psychotropic meds as follows: -Bupropion 100 mg tablets twice a day -Prozac 10 mg daily -Trazodone 100 mg daily at bedtime. (7) HTN (hypertension) Status: Chronic Plan: -Continue home Amlodipine 10mg PO daily -Clonidine 0.1 mg tablets every 6 hours for blood pressure greater than 180/90 -Hydralazine 10 mg PO TID when necessary blood pressure greater than 160/90 (8) FEN/ppx Status: Chronic Plan: Fluids: D5 NS +20 KCl at 60 cc/hour Electrolytes: Monitoring and will replete as needed Nutrition: Advance as tolerated DVT prophylaxis: Heparin 5000 units every 8 hours (9) Metabolic acidosis Status: Resolved Plan: Patient presented with normal anion gap metabolic acidosis suspected to be hyperchloremic metabolic acidosis due to loss from excessive ostomy output. -Status post ileostomy takedown on 01/20 -Metabolic derangements are slowly improving (Ana Solomon MD) Castro Smiley MD R2 Jan 23, 2017 08:42 Ana Solomon MD Jan 23, 2017 13:40
[2017-01-23] MEDS: buPROPion HCL 100 MG TAB PO SCH ×2 (08:52→21:39)
[2017-01-23] MEDS: PANTOPRAZOLE SOD 40 MG DELAYED RELEASE TAB PO SCH (08:52)
[2017-01-23] MEDS: SODIUM BICARBONATE 325 MG TAB PO SCH ×2 (08:52→22:22)
[2017-01-23] MEDS: POTASSIUM CHLORIDE 10 MEQ CONTROLLED RELEASE TAB PO SCH (08:53)
[2017-01-23] MEDS: FLUoxetine HCL 10 MG CAP PO SCH (08:53)
[2017-01-23] MEDS: METOCLOPRAMIDE HCL 10 MG/2 ML VIAL IVS SCH (08:53)
[2017-01-23] MEDS: ASPIRIN EC 81 MG TABEC PO SCH (08:53)
[2017-01-23] MEDS: CHOLECALCIFEROL (VIT D3) 1000 UNIT TAB PO SCH (08:53)
[2017-01-23] MEDS: SODIUM CHLORIDE 0.9% FLUSH 5 ML FLUSH IVF SCH ×2 (08:54→21:38)
[2017-01-23] MEDS: MORPHINE SULFATE 30 MG CONTROLLED RELEASE TAB PO SCH (09:00)
[2017-01-23] MEDS ORDERED: CALCIUM GLUCONATE 10% 1 GM/10 ML VIAL IV PUSH ONE (10:30)
[2017-01-23] MEDS: D5-NS + KCL 20 MEQ INJ 1,000 ML IV SCH (11:55)
[2017-01-23] MEDS: cefTRIAXone INJ 1,000 MG in SODIUM CHLORIDE 0.9% INJ 100 ML IV SCH (12:28)
[2017-01-23] MEDS: oxyCODONE/ACETAMINOPHEN 10 MG/325 MG TAB PO PRN ×2 (15:50→22:00)
[2017-01-23] MEDS: ONDANSETRON HCL 4 MG/2 ML VIAL IV PRN (15:50)
[2017-01-23] MEDS: METOCLOPRAMIDE HCL 10 MG TAB PO SCH ×2 (15:50→21:39)
--- NOTE | 2017-01-23 18:36 | HHI.PR ---
Subjective Remarks C/R Surg - POD #3 afebrile, VSS benito small am't PO +BM UO good c/o nausea Objective - Vital Signs Date Time Temp Pulse Resp B/P Pulse Ox O2 Delivery O2 Flow Rate FiO2 01/23/17 15:26 98.9 89 18 103/62 95 01/21/17 07:46 21 01/20/17 18:45 Nasal Cannula 3 Result Diagram: 01/23/1761701/23/1718 Objective Remarks PE alert Abd - soft, non-tender, min tympany, wound dry A/P Assessment and Plan Imp: better renal function OOB PT adv diet, H2 blockers/carafate Steven King MD Jan 23, 2017 18:36
[2017-01-23] MEDS: RESP: ALBUTEROL 2.5 MG/IPRATROPIUM 0.5 MG NEB (SCH) NEB (21:19)
[2017-01-23] MEDS: SUCRALFATE 1 GM/10 ML CUP PO SCH (21:38)
[2017-01-23] MEDS: traZODone HCL 100 MG TAB PO SCH (21:39)
[2017-01-24] VITALS (7 sets, daily range): BP systolic 91–106; BP diastolic 54–61; PULSE 73–85; RESP 18–20; TEMP 97–98.9; O2SAT 92–94
[2017-01-24] MEDS: RESP: ALBUTEROL 2.5 MG/IPRATROPIUM 0.5 MG NEB (SCH) NEB ×6 (02:58→20:22)
[2017-01-24] MEDS: D5-NS + KCL 20 MEQ INJ 1,000 ML IV SCH (03:12)
[2017-01-24] MEDS: METOCLOPRAMIDE HCL 10 MG TAB PO SCH ×4 (05:38→22:36)
[2017-01-24] MEDS: SUCRALFATE 1 GM/10 ML CUP PO SCH ×3 (05:38→22:37)
[2017-01-24] MEDS: HEPARIN SODIUM - SQ 10,000 UNITS/ML VIAL SQ SCH ×3 (05:39→22:37)
[2017-01-24] MEDS: oxyCODONE/ACETAMINOPHEN 10 MG/325 MG TAB PO PRN ×3 (05:42→17:50)
[2017-01-24 07:06] LABS: AUTOMATED NEUTROPHIL # 5.7 TH/MM3 (1.8-7.7); BASOPHIL # 0.1 TH/MM3 (0-0.2); BASOPHIL % 0.6 % (0.0-2.0); EOSINOPHIL # 0.4 TH/MM3 (0-0.4); EOSINOPHIL % 4.2 % (0.0-4.0); HEMATOCRIT 27.3 % (35.0-46.0); HEMO FLAGS DIFF FINAL; LYMPH % 25.8 % (9.0-44.0); LYMPHOCYTE # 2.3 TH/MM3 (1.0-4.8); MEAN CELL VOLUME 97.1 FL (80.0-100.0); MEAN CORPUSCULAR HEMOGLOBIN 31.6 PG (27.0-34.0); MEAN CORPUSCULAR HGB CONC 32.5 % (32.0-36.0); MONO % 6.2 % (0.0-8.0); NEUT % 63.2 % (16.0-70.0); PLATELET COUNT 178 TH/MM3 (150-450); RED BLOOD COUNT 2.81 MIL/MM3 (4.00-5.30); RED CELL DISTRIBUTION WIDTH 15.6 % (11.6-17.2)
[2017-01-24 07:11] LABS: BICARBONATE 19.1 MEQ/L (21.0-32.0); MAGNESIUM 1.7 MG/DL (1.5-2.5)
--- NOTE | 2017-01-24 08:23 | HHI.PR ---
Subjective Remarks POD#4 s/p ileostomy closure reports nausea passing stool Objective Vital Signs Date Time Temp Pulse Resp B/P Pulse Ox O2 Delivery O2 Flow Rate FiO2 01/24/17 04:00 98.9 73 18 99/56 94 01/23/17 23:00 75 01/23/17 23:00 98.1 81 18 100/56 91 01/23/17 20:05 98.3 79 18 109/58 93 01/23/17 15:26 98.9 89 18 103/62 95 01/23/17 12:53 98.2 82 16 92/54 93 I/O 01/23/17 01/23/17 01/23/17 01/24/17 01/24/17 01/24/17 07:00 15:00 23:00 07:00 15:00 23:00 Intake Total 240 ml 700 ml 60 ml Output Total 300 ml 750 ml Balance -60 ml -50 ml 60 ml Intake Oral 240 ml 700 ml 60 ml Output Urine Total 300 ml 750 ml # Voids 2 0 # Bowel Movements 2 0 Result Diagram: 01/24/17 0615 01/24/17 0615 Objective Remarks soft, nondistended, tender wound clean Assessment and Plan Assessment and Plan Awaiting placement MOBILIZE Ramya Rodriguez MD Jan 24, 2017 08:23
[2017-01-24] MEDS: CHOLECALCIFEROL (VIT D3) 1000 UNIT TAB PO SCH (08:33)
[2017-01-24] MEDS: buPROPion HCL 100 MG TAB PO SCH ×2 (08:33→21:00)
[2017-01-24] MEDS: ASPIRIN EC 81 MG TABEC PO SCH (08:34)
[2017-01-24] MEDS: PANTOPRAZOLE SOD 40 MG DELAYED RELEASE TAB PO SCH (08:34)
[2017-01-24] MEDS: FLUoxetine HCL 10 MG CAP PO SCH (08:34)
[2017-01-24] MEDS: SODIUM BICARBONATE 325 MG TAB PO SCH ×2 (08:34→22:37)
[2017-01-24] MEDS: POTASSIUM CHLORIDE 10 MEQ CONTROLLED RELEASE TAB PO SCH (08:34)
[2017-01-24] MEDS: MORPHINE SULFATE 30 MG CONTROLLED RELEASE TAB PO PRN ×2 (08:39→22:36)
[2017-01-24] MEDS: ONDANSETRON HCL 4 MG/2 ML VIAL IV PRN (08:40)
[2017-01-24] MEDS: SODIUM CHLORIDE 0.9% FLUSH 5 ML FLUSH IVF SCH ×2 (08:42→22:38)
--- NOTE | 2017-01-24 08:54 | HHI.FPPN ---
Subjective Remarks Patient is resting comfortably. Continues to have nausea. Her appetite is improved with yogurt with fruit. Yesterday, she got out of the bed to go to the bathroom. However, she states she gets too nauseated to get up to go to a chair. Continues to use incentive spirometer. 2 bowel movements yesterday. No fever, chills, chest pains. Objective Vitals Vital Signs Date Time Temp Pulse Resp B/P Pulse Ox O2 Delivery O2 Flow Rate FiO2 01/24/17 04:00 98.9 73 18 99/56 94 01/23/17 23:00 75 01/23/17 23:00 98.1 81 18 100/56 91 01/23/17 20:05 98.3 79 18 109/58 93 01/23/17 15:26 98.9 89 18 103/62 95 01/23/17 12:53 98.2 82 16 92/54 93 I/O 01/23/17 01/23/17 01/23/17 01/24/17 01/24/17 01/24/17 07:00 15:00 23:00 07:00 15:00 23:00 Intake Total 240 ml 700 ml 60 ml Output Total 300 ml 750 ml Balance -60 ml -50 ml 60 ml Intake Oral 240 ml 700 ml 60 ml Output Urine Total 300 ml 750 ml # Voids 2 0 # Bowel Movements 2 0 Result Diagram: 01/24/1715 01/24/17 0615 Objective Remarks GENERAL: Pale-appearing, thin, however alert and oriented to situation SKIN: Skin intact. Cool and dry HEAD: Normocephalic, atraumatic EYES: Pupils equal round and reactive. Extraocular motions intact. No scleral icterus. No injection or drainage ENT: Mucous membranes moist CARDIOVASCULAR: Faint heart sounds, regular rate and rhythm RESPIRATORY: CTAB Breath sounds equal bilaterally but poor effort. No wheezes, rales, or rhonchi GASTROINTESTINAL: Normal bowel sounds. Moderately tender to palpation. Abdominal incision covered with dressing, no binder NEUROLOGICAL: Awake and alert. Cranial nerves II through XII grossly intact. Motor and sensory grossly within normal limits. Normal speech A/P Assessment and Plan Ms. Rogers is a pleasant 66-year-old female, that presented with 6 days of abdominal pain, nausea, and persistent vomiting. She had a history of diverticulitis with temporary ileostomy and was known to the colorectal surgery team. She presented with high output ileostomy and metabolic acidosis. Currently, she is postop day #4 exploratory laparotomy with segmental small bowel resection and closure of ileostomy. Management as below. Discharge Planning Discharge pending clearance by colorectal surgery. She'll need follow-up with nephrology. PT recommends PT and rehabilitation. Patient is discussing with case management whether to go to [facility] versus home. Problem List: (1) History of diverticulitis Status: Acute Plan: Patient has history of diverticulitis. She developed high-output ileostomy. She is now status post exploratory laparotomy with segmental small bowel resection and closure of ileostomy. Postoperative day #4. Colorectal surgery following Pain management: Morphine sulfate 30 mg by mouth twice a day; Percocet 1 tab by mouth every 6 hours pain 3-10 Bowel regimen: Reglan 10 mg IV every 12 hours, Carafate 1 g by mouth every 8 hours Zofran for nausea Advance diet as tolerated per colorectal surgery Out of bed to chair and physical therapy. (2) UTI (urinary tract infection) Status: Acute Plan: Urine micro growing E. Coli Currently on ceftriaxone 1 g every 24 hours IV (started 01/18) (3) Acute on chronic renal insufficiency Status: Resolved Plan: Nephrology consulted, appreciate their recommendations Creatinine improved to baseline -Patient is to follow-up with nephrology as an outpatient. 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 (4) COPD (chronic obstructive pulmonary disease) Status: Chronic Plan: -Albuterol 2.5 mg inhaler q 2 hr prn -Duonebs every 4 hours when necessary for shortness of breath or wheezing (5) Physical deconditioning Status: Acute Plan: -Physical therapy consulted to assist with out of bed -Physical therapy recommends discharge to rehabilitation facility (6) Osteoporosis Status: Chronic Plan: -Hold bisphosphonate therapy at this time -Will restart once tolerating by mouth therapy and nausea has improved -Fall precautions in place (7) Depression Status: Chronic Plan: Resume home psychotropic meds as follows: -Bupropion 100 mg tablets twice a day -Prozac 10 mg daily -Trazodone 100 mg daily at bedtime. (8) HTN (hypertension) Status: Chronic Plan: -Continue home Amlodipine 10mg PO daily -Clonidine 0.1 mg tablets every 6 hours for blood pressure greater than 180/90 -Hydralazine 10 mg PO TID when necessary blood pressure greater than 160/90 (9) FEN/ppx Status: Chronic Plan: Fluids: Currently on D5 normal saline +20 potassium chloride at 60 cc per hour. We'll hold if tolerating by mouth. Currently improved by mouth intake. Electrolytes: Monitoring and will replete as needed Nutrition: Advance as tolerated DVT prophylaxis: Heparin 5000 units every 8 hours (10) Metabolic acidosis Status: Resolved Plan: Patient presented with normal anion gap metabolic acidosis suspected to be hyperchloremic metabolic acidosis due to loss from excessive ostomy output. -Status post ileostomy takedown on 01/20 -Metabolic derangements are slowly improving Castro Smiley MD R2 Jan 24, 2017 08:54
[2017-01-24] MEDS: PROMETHAZINE HCL 25 MG TAB PO PRN (09:56)
[2017-01-24] MEDS: cefTRIAXone INJ 1,000 MG in SODIUM CHLORIDE 0.9% INJ 100 ML IV SCH (11:25)
[2017-01-24] MEDS: traZODone HCL 100 MG TAB PO SCH (22:36)
[2017-01-25] VITALS (7 sets, daily range): BP systolic 95–132; BP diastolic 57–76; PULSE 75–96; RESP 16–20; TEMP 96.8–98.9; O2SAT 91–97
[2017-01-25] MEDS: oxyCODONE/ACETAMINOPHEN 10 MG/325 MG TAB PO PRN ×4 (00:49→19:30)
[2017-01-25] MEDS: RESP: ALBUTEROL 2.5 MG/IPRATROPIUM 0.5 MG NEB (SCH) NEB ×6 (01:15→20:32)
[2017-01-25] MEDS: SUCRALFATE 1 GM/10 ML CUP PO SCH ×3 (06:15→21:12)
[2017-01-25] MEDS: METOCLOPRAMIDE HCL 10 MG TAB PO SCH ×4 (06:15→21:20)
[2017-01-25] MEDS: HEPARIN SODIUM - SQ 10,000 UNITS/ML VIAL SQ SCH ×3 (06:16→21:13)
--- NOTE | 2017-01-25 08:36 | HHI.PR ---
Subjective Remarks POD#5 s/p ileostomy closure still with nausea not much stool in last 24 hours Objective Vital Signs Date Time Temp Pulse Resp B/P Pulse Ox O2 Delivery O2 Flow Rate FiO2 01/25/17 08:21 96.8 77 20 101/59 91 01/25/17 04:00 97.2 75 18 95/61 93 01/25/17 00:00 98.2 96 18 99/57 94 01/24/17 20:24 93 Nasal Cannula 01/24/17 20:00 97.1 84 18 102/55 94 01/24/17 20:00 76 01/24/17 16:28 97.0 84 20 91/54 92 01/24/17 12:52 98.1 85 20 104/61 93 01/24/17 08:59 97.5 79 20 106/61 94 I/O 01/24/17 01/24/17 01/24/17 01/25/17 01/25/17 01/25/17 07:00 15:00 23:00 07:00 15:00 23:00 Intake Total 60 ml 680 ml Balance 60 ml 680 ml Intake Oral 60 ml 680 ml # Voids 0 1 3 # Bowel Movements 0 Result Diagram: 01/24/17 0615 01/24/17 0615 Objective Remarks soft, nondistended, tender wound clean Assessment and Plan Assessment and Plan Not clear what source of nausea is Stop Vitamins Awaiting placement MOBILIZE Ramya Rodriguez MD Jan 25, 2017 08:36
[2017-01-25 08:41] LABS: AUTOMATED NEUTROPHIL # 4.5 TH/MM3 (1.8-7.7); BASOPHIL % 0.5 % (0.0-2.0); EOSINOPHIL # 0.4 TH/MM3 (0-0.4); EOSINOPHIL % 4.7 % (0.0-4.0); HEMATOCRIT 27.3 % (35.0-46.0); HEMO FLAGS DIFF FINAL; LYMPH % 33.9 % (9.0-44.0); LYMPHOCYTE # 2.8 TH/MM3 (1.0-4.8); MEAN CELL VOLUME 96.5 FL (80.0-100.0); MEAN CORPUSCULAR HEMOGLOBIN 31.7 PG (27.0-34.0); MEAN CORPUSCULAR HGB CONC 32.8 % (32.0-36.0); MONO % 6.1 % (0.0-8.0); NEUT % 54.8 % (16.0-70.0); PLATELET COUNT 201 TH/MM3 (150-450); RED BLOOD COUNT 2.82 MIL/MM3 (4.00-5.30); RED CELL DISTRIBUTION WIDTH 15.2 % (11.6-17.2); WHITE BLOOD COUNT 8.2 TH/MM3 (4.0-11.0)
[2017-01-25 09:08] LABS: ALKALINE PHOSPHATASE 78 U/L (45-117); ALT (GPT) 7 U/L (10-53); ANION GAP 8 MEQ/L (5-15); AST (GOT) 9 U/L (15-37); BICARBONATE 21.9 MEQ/L (21.0-32.0); BLOOD UREA NITROGEN 8 MG/DL (7-18); CHLORIDE 110 MEQ/L (98-107); GLOMERULAR FILTRATION RATE 39 ML/MIN (>89); MAGNESIUM 1.8 MG/DL (1.5-2.5); POTASSIUM 4.1 MEQ/L (3.5-5.1); SODIUM (NA) 140 MEQ/L (136-145); TOTAL BILIRUBIN ADULT 0.2 MG/DL (0.2-1.0)
[2017-01-25] MEDS: PANTOPRAZOLE SOD 40 MG DELAYED RELEASE TAB PO SCH (10:06)
[2017-01-25] MEDS: SODIUM BICARBONATE 325 MG TAB PO SCH ×2 (10:07→21:12)
[2017-01-25] MEDS: SODIUM CHLORIDE 0.9% FLUSH 5 ML FLUSH IVF SCH ×2 (10:07→21:13)
[2017-01-25] MEDS: buPROPion HCL 100 MG TAB PO SCH ×2 (10:08→21:12)
[2017-01-25] MEDS: POTASSIUM CHLORIDE 10 MEQ CONTROLLED RELEASE TAB PO SCH (10:08)
[2017-01-25] MEDS: FLUoxetine HCL 10 MG CAP PO SCH (10:08)
[2017-01-25] MEDS: ASPIRIN EC 81 MG TABEC PO SCH (10:09)
[2017-01-25] MEDS: ONDANSETRON HCL 4 MG/2 ML VIAL IV PRN ×2 (10:31→17:47)
[2017-01-25] MEDS: cefTRIAXone INJ 1,000 MG in SODIUM CHLORIDE 0.9% INJ 100 ML IV SCH (13:02)
--- NOTE | 2017-01-25 13:43 | HHI.FPPN ---
Subjective Remarks No acute events overnight. Afebrile, vital signs stable. Patient endorses intermittent nausea this morning. She did eat half a bagel for breakfast. She states her breathing is fine, requests DC of nebulizer treatments. (Sumi Gentile MD R3) Objective Vitals Vital Signs Date Time Temp Pulse Resp B/P Pulse Ox O2 Delivery O2 Flow Rate FiO2 01/25/17 12:30 97.1 95 20 132/76 95 01/25/17 08:21 96.8 77 20 101/59 91 01/25/17 04:00 97.2 75 18 95/61 93 01/25/17 00:00 98.2 96 18 99/57 94 01/24/17 20:24 93 Nasal Cannula 01/24/17 20:00 97.1 84 18 102/55 94 01/24/17 20:00 76 01/24/17 16:28 97.0 84 20 91/54 92 I/O 01/24/17 01/24/17 01/24/17 01/25/17 01/25/17 01/25/17 07:00 15:00 23:00 07:00 15:00 23:00 Intake Total 60 ml 680 ml Balance 60 ml 680 ml Intake Oral 60 ml 680 ml # Voids 0 1 3 1 # Bowel Movements 0 1 (Sumi Gentile MD R3) Result Diagram: 01/25/17 0809 01/25/17 0809 Objective Remarks GENERAL: Pale-appearing, thin, however alert and oriented to situation SKIN: Skin intact. Cool and dry HEAD: Normocephalic, atraumatic EYES: Pupils equal round and reactive. Extraocular motions intact. No scleral icterus. No injection or drainage ENT: Mucous membranes moist CARDIOVASCULAR: Faint heart sounds, regular rate and rhythm RESPIRATORY: CTAB Breath sounds equal bilaterally but poor effort. No wheezes, rales, or rhonchi GASTROINTESTINAL: Normal bowel sounds. Moderately tender to palpation. Abdominal incision covered with dressing, no binder NEUROLOGICAL: Awake and alert. Cranial nerves II through XII grossly intact. Motor and sensory grossly within normal limits. Normal speech (Sumi Gentile MD R3) A/P Assessment and Plan Ms. Rogers is a pleasant 66-year-old female, that presented with 6 days of abdominal pain, nausea, and persistent vomiting. She had a history of diverticulitis with temporary ileostomy and was known to the colorectal surgery team. She presented with high output ileostomy and metabolic acidosis. Currently, she is status post exploratory laparotomy with segmental small bowel resection and closure of ileostomy. Discharge Planning Discharge pending clearance by colorectal surgery. She'll need follow-up with nephrology. PT recommends PT and rehabilitation. Patient is discussing with case management whether to go to [facility] versus home. (Sumi Gentile MD R3) Attending Attestation Patient seen and examined with the resident team. Case reviewed and discussed Agree with plan of care as discussed with me and documented in the resident note (Ana Solomon MD) Problem List: (1) History of diverticulitis Status: Acute Plan: Patient has history of diverticulitis. She developed high-output ileostomy. She is now status post exploratory laparotomy with segmental small bowel resection and closure of ileostomy. Postoperative day #5. Colorectal surgery following Pain management: Morphine sulfate 30 mg by mouth twice a day; Percocet 1 tab by mouth every 6 hours pain 3-10 Bowel regimen: Reglan 5 mg PO achs, Carafate 1 g by mouth every 8 hours Zofran for nausea Out of bed to chair and physical therapy. (2) UTI (urinary tract infection) Status: Acute Plan: Urine micro growing E. Coli Currently on ceftriaxone 1 g every 24 hours IV (started 01/18) Repeat UA, DC antibiotics if UTI has resolved (3) Acute on chronic renal insufficiency Status: Resolved Plan: Nephrology consulted, appreciate their recommendations Creatinine improved to baseline -Patient is to follow-up with nephrology as an outpatient. 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 (4) COPD (chronic obstructive pulmonary disease) Status: Chronic Plan: -Albuterol 2.5 mg inhaler q 2 hr prn -Duonebs every 4 hours when necessary for shortness of breath or wheezing (5) Physical deconditioning Status: Acute Plan: -Physical therapy consulted to assist with out of bed -Physical therapy recommends discharge to rehabilitation facility (6) Osteoporosis Status: Chronic Plan: -Hold bisphosphonate therapy at this time -Will restart once tolerating by mouth therapy and nausea has improved -Fall precautions in place (7) Depression Status: Chronic Plan: Resume home psychotropic meds as follows: -Bupropion 100 mg tablets twice a day -Prozac 10 mg daily -Trazodone 100 mg daily at bedtime. (8) HTN (hypertension) Status: Chronic Plan: -Holding home Amlodipine as patient has been hypotensive -Clonidine 0.1 mg tablets every 6 hours for blood pressure greater than 180/90 -Hydralazine 10 mg PO TID when necessary blood pressure greater than 160/90 (9) FEN/ppx Status: Chronic Plan: Fluids: Hep-Lock IV Electrolytes: Monitoring and will replete as needed Nutrition: Advance as tolerated DVT prophylaxis: Heparin 5000 units every 8 hours (10) Metabolic acidosis Status: Resolved Plan: Patient presented with normal anion gap metabolic acidosis suspected to be hyperchloremic metabolic acidosis due to loss from excessive ostomy output. -Status post ileostomy takedown on 01/20 -Metabolic derangements are improving (Sumi Gentile MD R3) Sumi Gentile MD R3 Jan 25, 2017 13:43 Ana Solomon MD Jan 25, 2017 16:25 Ana Solomon MD Jan 25, 2017 16:25
[2017-01-25 20:53] LABS: BACTERIA, URINE OCC /hpf; BLOOD, URINE NEG (NEG); COMMENT (UR) CULTURE INDICATED; CULTURE IF INDICATED CULTURE INDICATED; GLUCOSE,URINE NEG (NEG); HYALINE CAST, URINE 1 /lpf (RARE); KETONE, URINE NEG (NEG); MUCUS URINE FEW /lpf (OCC); NITRITE,URINE NEG (NEG); SQUAMOUS EPITHELIAL CELL URINE 1 /hpf (0-5); URINE COLOR YELLOW (YELLW/STRAW)
[2017-01-25] MEDS: traZODone HCL 100 MG TAB PO SCH (21:12)
[2017-01-25] MEDS: PROMETHAZINE HCL 25 MG TAB PO PRN (21:20)
[2017-01-25] MEDS: MORPHINE SULFATE 30 MG CONTROLLED RELEASE TAB PO PRN (21:20)
[2017-01-26] VITALS (7 sets, daily range): BP systolic 108–145; BP diastolic 62–84; PULSE 86–94; RESP 16–20; TEMP 97.8–99.9; O2SAT 92–97
[2017-01-26] MEDS: RESP: ALBUTEROL 2.5 MG/IPRATROPIUM 0.5 MG NEB (SCH) NEB ×7 (00:38→23:30)
[2017-01-26] MEDS: PROMETHAZINE HCL 25 MG TAB PO PRN ×2 (01:06→21:36)
[2017-01-26] MEDS: METOCLOPRAMIDE HCL 10 MG TAB PO SCH ×2 (05:55→09:55)
[2017-01-26] MEDS: HEPARIN SODIUM - SQ 10,000 UNITS/ML VIAL SQ SCH ×3 (05:55→21:38)
[2017-01-26] MEDS: SUCRALFATE 1 GM/10 ML CUP PO SCH ×3 (05:55→21:34)
[2017-01-26] MEDS: buPROPion HCL 100 MG TAB PO SCH ×2 (09:46→21:34)
[2017-01-26] MEDS: POTASSIUM CHLORIDE 10 MEQ CONTROLLED RELEASE TAB PO SCH (09:46)
[2017-01-26] MEDS: FLUoxetine HCL 10 MG CAP PO SCH (09:46)
[2017-01-26] MEDS: ASPIRIN EC 81 MG TABEC PO SCH (09:46)
[2017-01-26] MEDS: PANTOPRAZOLE SOD 40 MG DELAYED RELEASE TAB PO SCH (09:46)
[2017-01-26] MEDS: SODIUM CHLORIDE 0.9% FLUSH 5 ML FLUSH IVF SCH ×2 (09:48→21:37)
[2017-01-26] MEDS: SODIUM BICARBONATE 325 MG TAB PO SCH ×2 (09:48→21:34)
[2017-01-26] MEDS: MORPHINE SULFATE 30 MG CONTROLLED RELEASE TAB PO PRN (09:55)
[2017-01-26 10:46] LABS: AUTOMATED NEUTROPHIL # 5.2 TH/MM3 (1.8-7.7); BASOPHIL # 0.1 TH/MM3 (0-0.2); BASOPHIL % 0.6 % (0.0-2.0); EOSINOPHIL # 0.3 TH/MM3 (0-0.4); EOSINOPHIL % 3.1 % (0.0-4.0); HEMATOCRIT 27.6 % (35.0-46.0); HEMO FLAGS DIFF FINAL; LYMPH % 30.9 % (9.0-44.0); LYMPHOCYTE # 2.7 TH/MM3 (1.0-4.8); MEAN CELL VOLUME 95.8 FL (80.0-100.0); MEAN CORPUSCULAR HEMOGLOBIN 31.3 PG (27.0-34.0); MEAN CORPUSCULAR HGB CONC 32.7 % (32.0-36.0); MONO % 5.6 % (0.0-8.0); NEUT % 59.8 % (16.0-70.0); PLATELET COUNT 237 TH/MM3 (150-450); RED BLOOD COUNT 2.88 MIL/MM3 (4.00-5.30); RED CELL DISTRIBUTION WIDTH 15.3 % (11.6-17.2); WHITE BLOOD COUNT 8.8 TH/MM3 (4.0-11.0)
--- NOTE | 2017-01-26 10:56 | HHI.FPPN ---
Subjective Remarks Patient states she had 2 episodes of vomiting yesterday and remains nauseated. Her dysuria has improved but is still having slight discomfort. No chest pain, fever, chills. She had 1 bowel movement this morning. She is getting out of the bed to the chair 2 times yesterday. She ate half a bagel and tilapia yesterday. Continues to use the incentive spirometer. (Castro Smiley MD R2) Objective Vitals Vital Signs Date Time Temp Pulse Resp B/P Pulse Ox O2 Delivery O2 Flow Rate FiO2 01/26/17 08:03 99.9 88 20 108/62 93 01/26/17 04:52 98.7 89 16 122/70 97 01/26/17 00:37 97.8 87 16 120/67 97 01/25/17 20:54 98.9 88 16 125/75 97 01/25/17 20:00 81 01/25/17 16:44 98.8 83 20 105/58 91 01/25/17 14:02 16 01/25/17 12:30 97.1 95 20 132/76 95 I/O 01/25/17 01/25/17 01/25/17 01/26/17 01/26/17 01/26/17 07:00 15:00 23:00 07:00 15:00 23:00 Intake Total 680 ml 240 ml 240 ml Output Total 600 ml Balance 680 ml 240 ml -360 ml Intake Oral 680 ml 240 ml 240 ml Emesis 600 ml # Voids 3 1 1 3 # Bowel Movements 1 (Castro Smiley MD R2) Result Diagram: 01/26/17 0945 01/25/17 0809 Objective Remarks GENERAL: Pale-appearing, thin, however alert and oriented to situation SKIN: Skin intact. Cool and dry HEAD: Normocephalic, atraumatic EYES: Pupils equal round and reactive. Extraocular motions intact. No scleral icterus. No injection or drainage ENT: Mucous membranes moist CARDIOVASCULAR: Faint heart sounds, regular rate and rhythm RESPIRATORY: CTAB Breath sounds equal bilaterally but poor effort. No wheezes, rales, or rhonchi GASTROINTESTINAL: Normal bowel sounds. Moderately tender to palpation. Abdominal incision covered with dressing, no binder NEUROLOGICAL: Awake and alert. Cranial nerves II through XII grossly intact. Motor and sensory grossly within normal limits. Normal speech (Castro Smiley MD R2) A/P Assessment and Plan Ms. Rogers is a pleasant 66-year-old female, that presented with 6 days of abdominal pain, nausea, and persistent vomiting. She had a history of diverticulitis with temporary ileostomy and was known to the colorectal surgery team. She presented with high output ileostomy and metabolic acidosis. Currently, she is status post exploratory laparotomy with segmental small bowel resection and closure of ileostomy. Discharge Planning Discharge pending clearance by colorectal surgery. She'll need follow-up with nephrology. PT recommends PT and rehabilitation. Patient is discussing with case management whether to go to [facility] versus home. (Castro Smiley MD R2 ) Attending Attestation Patient seen and examined. Case reviewed and discussed Agree with plan of care as discussed with me and documented in the resident note (Ana Solomon MD) Problem List: (1) History of diverticulitis Status: Acute Plan: Patient has history of diverticulitis. She developed high-output ileostomy. She is now status post exploratory laparotomy with segmental small bowel resection and closure of ileostomy. Postoperative day #6. Colorectal surgery following Pain management: Morphine sulfate 30 mg by mouth twice a day; Percocet 1 tab by mouth every 6 hours pain 3-10 Bowel regimen: Reglan 5 mg PO achs, Carafate 1 g by mouth every 8 hours Zofran for nausea Out of bed to chair and physical therapy. (2) UTI (urinary tract infection) Status: Acute Plan: Urine micro growing E. Coli Currently on ceftriaxone 1 g every 24 hours IV (started 01/18) Repeat urine culture (01/25) pending. Discontinue antibiotics if clear. (3) Acute on chronic renal insufficiency Status: Resolved Plan: Nephrology consulted, appreciate their recommendations Creatinine improved to baseline -Patient is to follow-up with nephrology as an outpatient. 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 (4) COPD (chronic obstructive pulmonary disease) Status: Chronic Plan: -Albuterol 2.5 mg inhaler q 2 hr prn -Duonebs every 4 hours when necessary for shortness of breath or wheezing (5) Physical deconditioning Status: Acute Plan: -Physical therapy consulted to assist with out of bed -Physical therapy recommends discharge to rehabilitation facility (6) Osteoporosis Status: Chronic Plan: -Hold bisphosphonate therapy at this time -Will restart once tolerating by mouth therapy and nausea has improved -Fall precautions in place (7) Depression Status: Chronic Plan: Resume home psychotropic meds as follows: -Bupropion 100 mg tablets twice a day -Prozac 10 mg daily -Trazodone 100 mg daily at bedtime. (8) HTN (hypertension) Status: Chronic Plan: -Holding home Amlodipine as patient has been hypotensive -Clonidine 0.1 mg tablets every 6 hours for blood pressure greater than 180/90 -Hydralazine 10 mg PO TID when necessary blood pressure greater than 160/90 (9) FEN/ppx Status: Chronic Plan: Fluids: Hep-Lock IV Electrolytes: Monitoring and will replete as needed Nutrition: Advance as tolerated DVT prophylaxis: Heparin 5000 units every 8 hours (10) Metabolic acidosis Status: Resolved Plan: Patient presented with normal anion gap metabolic acidosis suspected to be hyperchloremic metabolic acidosis due to loss from excessive ostomy output. -Status post ileostomy takedown on 01/20 -Metabolic derangements are improving (Castro Smiley MD R2) Castro Smiley MD R2 Jan 26, 2017 10:56 Ana Solomon MD Jan 27, 2017 14:53
[2017-01-26 11:09] LABS: BICARBONATE 22.9 MEQ/L (21.0-32.0)
[2017-01-26] MEDS: ONDANSETRON HCL 4 MG/2 ML VIAL IV PRN (13:15)
[2017-01-26] MEDS ORDERED: PILL SPLITTER OTHER PRN (15:30)
[2017-01-26] MEDS ORDERED: METOCLOPRAMIDE HCL 10 MG TAB PO SCH (16:00)
[2017-01-26] MEDS: LEVOFLOXACIN 250 MG PREMIX INJ 50 ML IV SCH (16:01)
--- NOTE | 2017-01-26 17:06 | HHI.PR ---
Subjective Remarks C/R Surg - POD afebrile, VSS benito liq only +BM UO good c/o nausea/emesis Objective - Vital Signs Date Time Temp Pulse Resp B/P Pulse Ox O2 Delivery O2 Flow Rate FiO2 01/26/17 15:02 98.9 94 20 145/84 95 01/24/17 20:24 Nasal Cannula Result Diagram: 01/26/17 0945 01/26/17 0945 Objective Remarks PE alert Abd - soft, non-tender, min tympany, wound dry A/P Assessment and Plan Imp: better renal function OOB PT check SBS - cont OOB check sed rate Steven King MD Jan 26, 2017 17:06
[2017-01-26] MEDS: METOCLOPRAMIDE HCL 10 MG/2 ML VIAL IV PUSH SCH (18:39)
[2017-01-26] MEDS: SODIUM CHLOR 0.9% 1000 ML INJ 1,000 ML IV SCH (18:39)
[2017-01-26] MEDS: oxyCODONE/ACETAMINOPHEN 10 MG/325 MG TAB PO PRN (21:36)
[2017-01-26] MEDS: traZODone HCL 100 MG TAB PO SCH (21:36)
[2017-01-27] VITALS (10 sets, daily range): BP systolic 120–137; BP diastolic 69–76; PULSE 62–107; RESP 18–21; TEMP 97.9–99.1; O2SAT 92–96
[2017-01-27] MEDS: MORPHINE SULFATE 30 MG CONTROLLED RELEASE TAB PO PRN ×2 (00:41→00:43)
[2017-01-27] MEDS: RESP: ALBUTEROL 2.5 MG/IPRATROPIUM 0.5 MG NEB (SCH) NEB ×5 (04:00→20:00)
[2017-01-27] MEDS: SODIUM CHLOR 0.9% 1000 ML INJ 1,000 ML IV SCH ×3 (05:15→15:00)
[2017-01-27] MEDS: HEPARIN SODIUM - SQ 10,000 UNITS/ML VIAL SQ SCH ×3 (07:02→22:24)
[2017-01-27] MEDS: METOCLOPRAMIDE HCL 10 MG/2 ML VIAL IV PUSH SCH ×3 (07:03→15:58)
[2017-01-27] MEDS: SUCRALFATE 1 GM/10 ML CUP PO SCH ×2 (07:03→14:55)
[2017-01-27 08:12] LABS: AUTOMATED NEUTROPHIL # 7.2 TH/MM3 (1.8-7.7); BASOPHIL # 0.1 TH/MM3 (0-0.2); BASOPHIL % 0.7 % (0.0-2.0); EOSINOPHIL # 0.1 TH/MM3 (0-0.4); EOSINOPHIL % 0.8 % (0.0-4.0); HEMATOCRIT 27.9 % (35.0-46.0); HEMO FLAGS DIFF FINAL; LYMPH % 23.4 % (9.0-44.0); LYMPHOCYTE # 2.4 TH/MM3 (1.0-4.8); MEAN CELL VOLUME 95.4 FL (80.0-100.0); MEAN CORPUSCULAR HEMOGLOBIN 31.2 PG (27.0-34.0); MEAN CORPUSCULAR HGB CONC 32.7 % (32.0-36.0); MONO % 4.9 % (0.0-8.0); NEUT % 70.2 % (16.0-70.0); PLATELET COUNT 246 TH/MM3 (150-450); RED BLOOD COUNT 2.93 MIL/MM3 (4.00-5.30); RED CELL DISTRIBUTION WIDTH 15.2 % (11.6-17.2); WHITE BLOOD COUNT 10.3 TH/MM3 (4.0-11.0)
[2017-01-27 08:35] LABS: ALT (GPT) 11 U/L (10-53); ANION GAP 10 MEQ/L (5-15); AST (GOT) 10 U/L (15-37); BICARBONATE 21.8 MEQ/L (21.0-32.0); BLOOD UREA NITROGEN 9 MG/DL (7-18); CHLORIDE 108 MEQ/L (98-107); GLOMERULAR FILTRATION RATE 40 ML/MIN (>89); POTASSIUM 4.4 MEQ/L (3.5-5.1); SODIUM (NA) 140 MEQ/L (136-145)
[2017-01-27 08:37] LABS: ALKALINE PHOSPHATASE 87 U/L (45-117); TOTAL BILIRUBIN ADULT 0.3 MG/DL (0.2-1.0)
[2017-01-27] MEDS ORDERED: DIATRIZOATE MEGLUM/DIATRIZOATE SOD 120 ML BTL (for RAD DIAG) PO ONE (09:30)
--- NOTE | 2017-01-27 10:02 | HHI.FPPN ---
Subjective Remarks Ms Rogers was at [facility] when I checked this morning. Nurse said she had 5 episodes of emesis in the last 24 hours, and none of the medications have helped. Saw her later in the morning, lying in bed, she had one episode of vomiting this a.m. after the small bowel series. Denies dysuria. (HueyoArlin MD R1) Objective Vitals Vital Signs Date Time Temp Pulse Resp B/P Pulse Ox O2 Delivery O2 Flow Rate FiO2 01/27/17 08:12 97.9 91 20 127/72 94 01/27/17 05:29 98.3 91 21 127/74 92 01/27/17 02:30 84 01/27/17 01:48 19 01/27/17 00:26 98.1 107 20 120/76 94 01/26/17 22:44 19 01/26/17 20:36 98.3 89 20 129/72 94 01/26/17 15:02 98.9 94 20 145/84 95 01/26/17 14:25 88 01/26/17 12:19 99.2 86 20 117/73 92 I/O 01/26/17 01/26/17 01/26/17 01/27/17 01/27/17 01/27/17 07:00 15:00 23:00 07:00 15:00 23:00 Intake Total 240 ml 240 ml Output Total 600 ml 300 ml 300 ml 600 ml Balance -360 ml -300 ml 240 ml -300 ml -600 ml Intake Oral 240 ml 240 ml Output Urine Total 350 ml Emesis 600 ml 300 ml 300 ml 250 ml # Voids 3 0 1 # Bowel Movements 0 0 1 (EkoArlin MD R1) Result Diagram: 01/27/17 0710 01/27/17 0710 Objective Remarks GENERAL: Pale-appearing, thin, appears very uncomfortable SKIN: Skin intact. Cool and dry HEAD: Normocephalic, atraumatic EYES: Pupils equal round and reactive. Extraocular motions intact. No scleral icterus. No injection or drainage ENT: Mucous membranes moist CARDIOVASCULAR: Faint heart sounds, regular rate and rhythm RESPIRATORY: CTAB Breath sounds equal bilaterally but poor effort. No wheezes, rales, or rhonchi GASTROINTESTINAL: Hyperactive bowel sounds in the left lower quadrant. Moderately tender to palpation. Abdominal incision healing well, no binder NEUROLOGICAL: Awake and alert. Cranial nerves II through XII grossly intact. Motor and sensory grossly within normal limits. Normal speech (Arlin Gillespie MD R1) A/P Assessment and Plan Ms. Rogers is a pleasant 66-year-old female, that presented with 6 days of abdominal pain, nausea, and persistent vomiting. She had a history of diverticulitis with temporary ileostomy and was known to the colorectal surgery team. She presented with high output ileostomy and metabolic acidosis. Currently, she is status post exploratory laparotomy with segmental small bowel resection and closure of ileostomy. Discharge Planning Discharge pending clearance by colorectal surgery. She'll need follow-up with nephrology. PT recommends PT at rehabilitation. Patient is discussing with case management whether to go to [facility] versus home. Patient still considering the option of long-term care. (Arlin Gillespie MD R1) Attending Attestation Patient seen and examined Case reviewed and discussed Agree with plan of care as discussed with me and documented in the resident note. (Ana Solomon MD) Problem List: (1) History of diverticulitis Status: Acute Plan: Patient has history of diverticulitis. She developed high-output ileostomy. She is now status post exploratory laparotomy with segmental small bowel resection and closure of ileostomy. Postoperative day #6. Colorectal surgery following - underwent small bowel series today which was normal although limited by patient not being able to swallow large amounts of Gastrografin Pain management: Holding Morphine sulfate 30 mg by mouth twice a day; Percocet 1 tab by mouth every 6 hours pain 3-10 due to nausea/vomiting Morphine 1 mg every 4 hours when necessary pain 1 through 10 - hold for hypotension Bowel regimen: Reglan 10 mg 3 times a day before meals, Carafate 1 g by mouth every 8 hours, Zofran for nausea Out of bed to chair and physical therapy (2) UTI (urinary tract infection) Status: Acute Plan: Urine micro growing group D enterococcus and yeast on repeat urine culture -Yeast ID pending -Start ampicillin 1 g every 12 IV, request help from pharmacy with dosing in the setting of renal insufficiency (3) Acute on chronic renal insufficiency Status: Resolved Plan: Nephrology consulted, appreciate their recommendations Creatinine improved to baseline -Patient is to follow-up with nephrology as an outpatient. 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 (4) COPD (chronic obstructive pulmonary disease) Status: Chronic Plan: -Albuterol 2.5 mg inhaler q 2 hr prn -Duonebs every 4 hours when necessary for shortness of breath or wheezing (5) Physical deconditioning Status: Acute Plan: -Physical therapy consulted to assist with out of bed -Physical therapy recommends discharge to rehabilitation facility (6) Osteoporosis Status: Chronic Plan: -Hold bisphosphonate therapy at this time -Will restart once tolerating by mouth therapy and nausea has improved -Fall precautions in place (7) Depression Status: Chronic Plan: Resume home psychotropic meds as follows: -Bupropion 100 mg tablets twice a day -Prozac 10 mg daily -Trazodone 100 mg daily at bedtime. (8) HTN (hypertension) Status: Chronic Plan: -Holding home Amlodipine as patient has been hypotensive -Clonidine 0.1 mg tablets every 6 hours for blood pressure greater than 180/90 -Hydralazine 10 mg PO TID when necessary blood pressure greater than 160/90 (9) FEN/ppx Status: Chronic Plan: Fluids: Maintenance fluids, NS @ 90 mls/hr Electrolytes: Monitoring and will replete as needed Nutrition: Advance as tolerated DVT prophylaxis: Heparin 5000 units every 8 hours (10) Metabolic acidosis Status: Resolved Plan: Patient presented with normal anion gap metabolic acidosis suspected to be hyperchloremic metabolic acidosis due to loss from excessive ostomy output. -Status post ileostomy takedown on 01/20 -Metabolic derangements are improving (Arlin Gillespie MD R1) Arlin Gillespie MD R1 Jan 27, 2017 10:02 Ana Solomon MD Jan 30, 2017 10:24
[2017-01-27] MEDS: POTASSIUM CHLORIDE 10 MEQ CONTROLLED RELEASE TAB PO SCH (10:14)
[2017-01-27] MEDS: PANTOPRAZOLE SOD 40 MG DELAYED RELEASE TAB PO SCH (10:15)
[2017-01-27] MEDS: FLUoxetine HCL 10 MG CAP PO SCH (10:15)
[2017-01-27] MEDS: buPROPion HCL 100 MG TAB PO SCH (10:15)
[2017-01-27] MEDS: SODIUM BICARBONATE 325 MG TAB PO SCH (10:16)
[2017-01-27] MEDS: SODIUM CHLORIDE 0.9% FLUSH 5 ML FLUSH IVF SCH ×2 (10:18→22:17)
--- NOTE | 2017-01-27 10:27 | RADRPT ---
EXAM DATE/TIME: 01/27/2017 09:35 [place] COMPARISON: No previous studies available for comparison. INDICATIONS : Persistent nausea and vomiting. FLUORO TIME: 2.2 minutes IMAGE COUNT: 12 CONTRAST: 1. MD [place] MEDICAL HISTORY : Hypertension. Deep venous thrombosis. Chronic obstructive pulmonary disease. SURGICAL HISTORY : Appendectomy. Hysterectomy.Colostomy 08/15 and reversal 01/15 ENCOUNTER: Subsequent ACUITY: 2 weeks PAIN SCORE: 0/10 LOCATION: Bilateral Abdomen. FINDINGS: Preliminary film is unremarkable. The patient swallowed without any difficulty. The body of the esophagus is unremarkable. No reflux o r hiatal hernia is identified. Examination of the stomach demonstrates no evidence of intraluminal mass or extrinsic compression. T he gastric volume appears normal and there are no findings of ulceration. The mucosal pattern appear s normal. The duodenal bulb and duodenal sweep appear normal. The visualized small bowel is unremar kable. CONCLUSION: Unremarkable upper gastrointestinal examination limited due to patient mobility and difficulty swallo wing large amounts of Gastrografin. Jonas Terry MD on January 27, 2017 at 10:25 Board Certified Radiologist. This report was verified electronically.
[2017-01-27] MEDS: ONDANSETRON HCL 4 MG/2 ML VIAL IV PRN (13:46)
[2017-01-27] MEDS: MORPHINE SULFATE 4 MG/ML INJ IV PUSH PRN (15:49)
[2017-01-27] MEDS: LEVOFLOXACIN 250 MG PREMIX INJ 50 ML IV SCH (15:54)
[2017-01-27] MEDS ORDERED: Custom Consult Pharmacy 1 EA OTHER SCH (16:15)
--- NOTE | 2017-01-27 20:19 | HHI.PR ---
Subjective Remarks C/R Surg - POD afebrile, VSS +BM UO good c/o nausea/emesis - still mod amounts Objective - Vital Signs Date Time Temp Pulse Resp B/P Pulse Ox O2 Delivery O2 Flow Rate FiO2 01/27/17 18:52 62 01/27/17 17:01 99.0 18 136/72 96 01/24/17 20:24 Nasal Cannula Result Diagram: 01/27/17 0710 01/27/17 0710 Objective Remarks PE alert Abd - soft, non-tender, min tympany, wound dry A/P Assessment and Plan Imp: better renal function OOB PT SBS normal, may still need NGT check sed rate Steven King MD Jan 27, 2017 20:19
[2017-01-27] MEDS: AMPICILLIN INJ 1,000 MG in SODIUM CHLORIDE 0.9% INJ 100 ML IV SCH (22:16)
[2017-01-28] VITALS (15 sets, daily range): BP systolic 117–154; BP diastolic 56–81; PULSE 82–95; RESP 16–21; TEMP 95.9–99.5; O2SAT 93–95
[2017-01-28] MEDS: buPROPion HCL 100 MG TAB PO SCH ×3 (00:11→22:12)
[2017-01-28] MEDS: SUCRALFATE 1 GM/10 ML CUP PO SCH ×4 (00:12→22:13)
[2017-01-28] MEDS: SODIUM BICARBONATE 325 MG TAB PO SCH ×3 (00:12→21:00)
[2017-01-28] MEDS: traZODone HCL 100 MG TAB PO SCH ×2 (00:12→22:13)
[2017-01-28] MEDS: SODIUM CHLOR 0.9% 1000 ML INJ 1,000 ML IV SCH ×2 (00:13→06:47)
[2017-01-28] MEDS: RESP: ALBUTEROL 2.5 MG/IPRATROPIUM 0.5 MG NEB (SCH) NEB ×6 (03:54→20:00)
[2017-01-28] MEDS: METOCLOPRAMIDE HCL 10 MG/2 ML VIAL IV PUSH SCH ×3 (06:39→17:45)
[2017-01-28] MEDS: MORPHINE SULFATE 4 MG/ML INJ IV PUSH PRN ×5 (06:59→22:13)
[2017-01-28 08:16] LABS: HEMATOCRIT 26.2 % (35.0-46.0); MEAN CELL VOLUME 96.5 FL (80.0-100.0); MEAN CORPUSCULAR HEMOGLOBIN 31.1 PG (27.0-34.0); MEAN CORPUSCULAR HGB CONC 32.2 % (32.0-36.0); PLATELET COUNT 216 TH/MM3 (150-450); RED BLOOD COUNT 2.72 MIL/MM3 (4.00-5.30); RED CELL DISTRIBUTION WIDTH 15.2 % (11.6-17.2); REVIEW FLAG FINAL; WHITE BLOOD COUNT 8.6 TH/MM3 (4.0-11.0)
[2017-01-28 08:41] LABS: ALKALINE PHOSPHATASE 84 U/L (45-117); ALT (GPT) 10 U/L (10-53); ANION GAP 13 MEQ/L (5-15); AST (GOT) 7 U/L (15-37); BICARBONATE 19.5 MEQ/L (21.0-32.0); BLOOD UREA NITROGEN 9 MG/DL (7-18); CHLORIDE 111 MEQ/L (98-107); GLOMERULAR FILTRATION RATE 42 ML/MIN (>89); POTASSIUM 3.4 MEQ/L (3.5-5.1); SODIUM (NA) 143 MEQ/L (136-145); TOTAL BILIRUBIN ADULT 0.3 MG/DL (0.2-1.0)
[2017-01-28] MEDS ORDERED: SODIUM CHLOR 0.9% 250 ML INJ 250 ML IV ONE (08:45)
--- NOTE | 2017-01-28 09:13 | HHI.FPPN ---
Subjective Remarks Patient states she is doing a lot better with the NG tube. Her nausea is greatly improved and she is requesting iraj tavares. No fever, chills. No chest pain. No shortness of breath. She is getting out of bed to the commode, however movement is very uncomfortable with the NG tube in place. (Castro Smiley MD R2) Objective Vitals Vital Signs Date Time Temp Pulse Resp B/P Pulse Ox O2 Delivery O2 Flow Rate FiO2 01/28/17 07:45 94 21 01/28/17 07:18 95.9 82 19 125/69 95 01/28/17 05:09 99.5 86 20 117/56 93 01/28/17 01:30 95 01/28/17 00:22 99.1 90 21 121/67 95 01/27/17 20:38 92 21 01/27/17 20:26 99.1 97 20 132/76 95 01/27/17 18:52 62 01/27/17 17:01 99.0 92 18 136/72 96 01/27/17 16:00 20 01/27/17 14:56 20 01/27/17 13:13 88 01/27/17 12:00 99.1 100 20 137/69 95 I/O 01/27/17 01/27/17 01/27/17 01/28/17 01/28/17 01/28/17 07:00 15:00 23:00 07:00 15:00 23:00 Intake Total 1294 ml 1672 ml 448 ml Output Total 300 ml 1550 ml 400 ml 2001 ml Balance -300 ml -256 ml 1272 ml -1553 ml Intake Oral 240 ml 660 ml IV Total 1054 ml 1012 ml 448 ml Output Urine Total 550 ml 200 ml 600 ml Stool Total 150 ml 1 ml Emesis 300 ml 850 ml 200 ml Drainage Total 1400 ml # Voids 1 1 1 # Bowel Movements 0 2 0 (Castro Smiley MD R2) Result Diagram: 01/28/17 0753 01/28/17 0753 Objective Remarks GENERAL: Pale-appearing, thin. NG tube in place with 400 mL's fluid output. SKIN: Skin intact. Cool and dry HEAD: Normocephalic, atraumatic EYES: Pupils equal round and reactive. Extraocular motions intact. No scleral icterus. No injection or drainage ENT: Mucous membranes moist CARDIOVASCULAR: Faint heart sounds, regular rate and rhythm RESPIRATORY: CTAB Breath sounds equal bilaterally but poor effort. No wheezes, rales, or rhonchi GASTROINTESTINAL: Positive bowel sounds. Moderately tender to palpation. Abdominal incision healing well, no binder NEUROLOGICAL: Awake and alert. Cranial nerves II through XII grossly intact. Motor and sensory grossly within normal limits. Normal speech (Castro Smiley MD R2) A/P Assessment and Plan Ms. Rogers is a pleasant 66-year-old female, that presented with 6 days of abdominal pain, nausea, and persistent vomiting. She had a history of diverticulitis with temporary ileostomy and was known to the colorectal surgery team. She presented with high output ileostomy and metabolic acidosis. Currently, she is status post exploratory laparotomy with segmental small bowel resection and closure of ileostomy. Discharge Planning Discharge pending clearance by colorectal surgery. She'll need follow-up with nephrology. PT recommends PT at rehabilitation. Patient is discussing with case management whether to go to [facility] versus home. Patient still considering the option of long-term care. (Castro Smiley MD R2) Attending Attestation Patient seen and examined Case reviewed and discussed Agree with plan of care as discussed with me and documented in the resident note. (Ana Solomon MD) Problem List: (1) History of diverticulitis Status: Acute Plan: Patient has history of diverticulitis. She developed high-output ileostomy. She is now status post exploratory laparotomy with segmental small bowel resection and closure of ileostomy. Postoperative day #6. Colorectal surgery following Small bowel series normal NG tube to suction. Pain management: Morphine 1 mg every 4 hours IV pain 1-10, IV Tylenol 1000 mg every 6 hours, Percocet 1 tab by mouth every 6 hours pain 3-10 due to nausea/ vomiting Morphine 1 mg every 4 hours when necessary pain 1 through 10 - hold for hypotension Bowel regimen: Reglan 10 mg 3 times a day before meals, Carafate 1 g by mouth every 8 hours, Zofran for nausea Out of bed to chair and physical therapy (2) UTI (urinary tract infection) Status: Acute Plan: Urine micro growing group D enterococcus and yeast on repeat urine culture -Yeast ID pending Continue ampicillin 1 g every 12 IV, request help from pharmacy with dosing in the setting of renal insufficiency (3) Acute on chronic renal insufficiency Status: Resolved Plan: Nephrology consulted, appreciate their recommendations Creatinine improved to baseline -Patient is to follow-up with nephrology as an outpatient. 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 (4) COPD (chronic obstructive pulmonary disease) Status: Chronic Plan: -Albuterol 2.5 mg inhaler q 2 hr prn -Duonebs every 4 hours when necessary for shortness of breath or wheezing (5) Physical deconditioning Status: Acute Plan: -Physical therapy consulted to assist with out of bed -Physical therapy recommends discharge to rehabilitation facility (6) Osteoporosis Status: Chronic Plan: -Hold bisphosphonate therapy at this time -Will restart once tolerating by mouth therapy and nausea has improved -Fall precautions in place (7) Depression Status: Chronic Plan: Resume home psychotropic meds as follows: -Bupropion 100 mg tablets twice a day -Prozac 10 mg daily -Trazodone 100 mg daily at bedtime. (8) HTN (hypertension) Status: Chronic Plan: -Holding home Amlodipine as patient has been hypotensive -Clonidine 0.1 mg tablets every 6 hours for blood pressure greater than 180/90 -Hydralazine 10 mg PO TID when necessary blood pressure greater than 160/90 (9) FEN/ppx Status: Chronic Plan: Fluids: NS @ 125 mls/hr Electrolytes: Monitoring and will replete as needed Nutrition: Nothing by mouth except meds. DVT prophylaxis: Heparin 5000 units every 8 hours (10) Metabolic acidosis Status: Resolved Plan: Patient presented with normal anion gap metabolic acidosis suspected to be hyperchloremic metabolic acidosis due to loss from excessive ostomy output. -Status post ileostomy takedown on 01/20 -Metabolic derangements are improving (Castro Smiley MD R2) Castro Smiley MD R2 Jan 28, 2017 09:13 Ana Solomon MD Jan 30, 2017 10:24
[2017-01-28] MEDS: AMPICILLIN INJ 1,000 MG in SODIUM CHLORIDE 0.9% INJ 100 ML IV SCH ×2 (09:38→22:11)
[2017-01-28] MEDS: HEPARIN SODIUM - SQ 10,000 UNITS/ML VIAL SQ SCH ×2 (09:40→22:13)
[2017-01-28] MEDS: PANTOPRAZOLE SOD 40 MG DELAYED RELEASE TAB PO SCH (09:44)
[2017-01-28] MEDS: FLUoxetine HCL 10 MG CAP PO SCH (09:46)
[2017-01-28] MEDS: POTASSIUM CHLORIDE 10 MEQ CONTROLLED RELEASE TAB PO SCH (09:46)
[2017-01-28] MEDS: SODIUM CHLORIDE 0.9% FLUSH 5 ML FLUSH IVF SCH ×2 (09:46→21:00)
[2017-01-28] MEDS: NS + KCL 20 MEQ INJ 1,000 ML IV SCH ×2 (10:01→16:31)
[2017-01-28] MEDS: PANTOPRAZOLE SODIUM 40 MG VIAL IV PUSH SCH (17:46)
[2017-01-29 00:19] VITALS: BP 152/78; PULSE 79; RESP 16; TEMP 97.8; O2SAT 96
[2017-01-29] MEDS: NS + KCL 20 MEQ INJ 1,000 ML IV SCH ×3 (00:59→17:15)
[2017-01-29] MEDS: MORPHINE SULFATE 4 MG/ML INJ IV PUSH PRN ×6 (02:45→23:20)
[2017-01-29] MEDS: RESP: ALBUTEROL 2.5 MG/IPRATROPIUM 0.5 MG NEB (SCH) NEB ×7 (03:40→23:50)
[2017-01-29 04:00] VITALS: BP 148/70; PULSE 75; RESP 18; TEMP 98.5; O2SAT 95
[2017-01-29] MEDS: SUCRALFATE 1 GM/10 ML CUP PO SCH ×3 (06:41→23:22)
[2017-01-29 07:45] VITALS: BP 159/86; PULSE 83; RESP 20; TEMP 96.4; O2SAT 96
--- NOTE | 2017-01-29 08:14 | HHI.PR ---
Subjective Remarks C/R Surg - POD afebrile, VSS +BM UO good NGT mod output Objective - Vital Signs Date Time Temp Pulse Resp B/P Pulse Ox O2 Delivery O2 Flow Rate FiO2 01/29/17 04:00 98.5 75 18 148/70 95 01/28/17 07:45 21 Result Diagram: 01/28/17 0753 01/28/17 0753 Objective Remarks PE alert Abd - soft, non-tender, min tympany, wound dry little BM A/P Assessment and Plan Imp: better renal function OOB PT check sed rate check KUB try liquids Steven King MD Jan 29, 2017 08:14
[2017-01-29 08:27] LABS: HEMATOCRIT 34.2 % (35.0-46.0); MEAN CELL VOLUME 91.6 FL (80.0-100.0); MEAN CORPUSCULAR HGB CONC 33.8 % (32.0-36.0); PLATELET COUNT 228 TH/MM3 (150-450); RED BLOOD COUNT 3.73 MIL/MM3 (4.00-5.30); RED CELL DISTRIBUTION WIDTH 15.7 % (11.6-17.2); REVIEW FLAG FINAL; WHITE BLOOD COUNT 10.1 TH/MM3 (4.0-11.0)
[2017-01-29 08:49] LABS: ANION GAP 16 MEQ/L (5-15); AST (GOT) 9 U/L (15-37); BICARBONATE 17.3 MEQ/L (21.0-32.0); BLOOD UREA NITROGEN 9 MG/DL (7-18); CHLORIDE 112 MEQ/L (98-107); GLOMERULAR FILTRATION RATE 61 ML/MIN (>89); POTASSIUM 3.6 MEQ/L (3.5-5.1); SODIUM (NA) 145 MEQ/L (136-145)
[2017-01-29 08:52] LABS: ALKALINE PHOSPHATASE 79 U/L (45-117); ALT (GPT) 10 U/L (10-53); TOTAL BILIRUBIN ADULT 0.4 MG/DL (0.2-1.0)
--- NOTE | 2017-01-29 09:04 | RADRPT ---
EXAM DATE/TIME: 01/29/2017 08:37 [facility] COMPARISON: GASTROGRAFIN GI SERIES, January 27, 2017, 9:35. INDICATIONS : Follow up ileus. MEDICAL HISTORY : Hypertension. Deep venous thrombosis. Chronic obstructive pulmonary disease. SURGICAL HISTORY : Appendectomy. Hysterectomy.Colostomy 08/15 and reversal 01/15 ENCOUNTER: Subsequent ACUITY: 2 weeks PAIN SCORE: 0/10 LOCATION: abdomen. FINDINGS: Supine and upright views of the abdomen were performed. The abdominal bowel gas pattern is normal. No air fluid levels are seen. No abnormal masses, calcifications, or organomegaly is seen. The visu alized lower lungs are clear. No evidence of free intraperitoneal gas. Levoscoliosis and multilevel degenerative changes. Nasogastric tube tip in stomach. Cholecystectomy clips. A surgical anastomotic sutures right upper quadrant. Residual contrast within the large bowel. Anastomotic sutures also seen in the rectum CONCLUSION: Residual contrast in large bowel. Postsurgical changes. Irvin Trevizo MD on January 29, 2017 at 9:01 Board Certified Radiologist. This report was verified electronically.
[2017-01-29] MEDS: METOCLOPRAMIDE HCL 10 MG/2 ML VIAL IV PUSH SCH ×3 (09:48→17:10)
[2017-01-29] MEDS: AMPICILLIN INJ 1,000 MG in SODIUM CHLORIDE 0.9% INJ 100 ML IV SCH ×2 (09:48→23:22)
[2017-01-29] MEDS: buPROPion HCL 100 MG TAB PO SCH ×2 (09:49→23:21)
[2017-01-29] MEDS: FLUoxetine HCL 10 MG CAP PO SCH (09:49)
[2017-01-29] MEDS: POTASSIUM CHLORIDE 10 MEQ CONTROLLED RELEASE TAB PO SCH (09:49)
[2017-01-29] MEDS: SODIUM CHLORIDE 0.9% FLUSH 5 ML FLUSH IVF SCH ×2 (09:49→23:22)
[2017-01-29] MEDS: SODIUM BICARBONATE 325 MG TAB PO SCH ×2 (09:49→23:21)
[2017-01-29] MEDS: HEPARIN SODIUM - SQ 10,000 UNITS/ML VIAL SQ SCH ×2 (09:50→23:21)
--- NOTE | 2017-01-29 12:09 | RADRPT ---
EXAM DATE/TIME: 01/29/2017 11:41 [facility] COMPARISON: ABDOMEN FLAT & UPRIGHT, January 29, 2017, 8:37. INDICATIONS : Post picc line placement. MEDICAL HISTORY : Hypertension. Chronic obstructive pulmonary disease. SURGICAL HISTORY : None. ENCOUNTER: Initial ACUITY: 1 week PAIN SCORE: 0/10 LOCATION: Bilateral chest FINDINGS: The examination demonstrates a PICC which enters from the right arm the catheter tip overlies the sup erior vena cava. There is a nasogastric tube in good position. There are small bilateral pleural effusions. These are similar to previous examination. There are SNAP ATTACHER D changes within the parenchyma. The bony structures are intact. CONCLUSION: 1. PICC in good position. Ervin Lloyd MD on January 29, 2017 at 12:05 Board Certified Radiologist. This report was verified electronically.
[2017-01-29 13:13] VITALS: BP 173/82; PULSE 76; RESP 16; TEMP 98.4; O2SAT 97
--- NOTE | 2017-01-29 14:29 | HHI.FPPN ---
Subjective Remarks Ms Rogers was sitting on the bedside commode during morning rounds. She stated that she felt very miserable and wanted the nasogastric tube removed because it was very irritating to her. She states that she has much less pain in her abdomen with fluid removed by the NG tube and after having a large bowel movement this morning. (Arlin Gillespie MD R1) Objective Vitals Vital Signs Date Time Temp Pulse Resp B/P Pulse Ox O2 Delivery O2 Flow Rate FiO2 01/29/17 13:13 98.4 76 16 173/82 97 01/29/17 07:45 96.4 83 20 159/86 96 01/29/17 04:00 98.5 75 18 148/70 95 01/29/17 00:19 97.8 79 16 152/78 96 01/28/17 20:23 98.6 85 18 147/81 94 01/28/17 17:54 16 01/28/17 16:40 97.9 87 16 138/68 94 01/28/17 16:25 98.5 85 18 138/67 94 01/28/17 16:04 98.2 87 16 150/73 95 01/28/17 15:00 99.0 85 19 154/73 95 I/O 01/28/17 01/28/17 01/28/17 01/29/17 01/29/17 01/29/17 07:00 15:00 23:00 07:00 15:00 23:00 Intake Total 448 ml 2222 ml Output Total 2001 ml 400 ml 1550 ml 900 ml 1000 ml Balance -1553 ml -400 ml 672 ml -900 ml -1000 ml Intake Oral 200 ml IV Total 448 ml 1522 ml Packed Cells 500 ml Output Urine Total 600 ml 400 ml 600 ml 900 ml Stool Total 1 ml Gastric Drainage Total 1000 ml Drainage Total 1400 ml 950 ml # Bowel Movements 0 0 (Arlin Gillespie MD R1) Result Diagram: 01/29/17 0740 01/29/17 0740 Objective Remarks GENERAL: Pale-appearing, thin. NG tube in place with 900 mL fluid output. SKIN: Skin intact. Cool and dry HEAD: Normocephalic, atraumatic EYES: Pupils equal round and reactive. Extraocular motions intact. No scleral icterus. No injection or drainage ENT: Mucous membranes moist CARDIOVASCULAR: Faint heart sounds, regular rate and rhythm RESPIRATORY: CTAB. Breath sounds equal bilaterally but poor effort. No wheezes, rales, or rhonchi GASTROINTESTINAL: Positive bowel sounds. Moderately tender to palpation. Abdominal incision healing well, no binder NEUROLOGICAL: Awake and alert. Cranial nerves II through XII grossly intact. Motor and sensory grossly within normal limits. Normal speech (Jose Miguel,Arlin Gunn MD R1) A/P Assessment and Plan Ms. Rogers is a pleasant 66-year-old female, that presented with 6 days of abdominal pain, nausea, and persistent vomiting. She had a history of diverticulitis with temporary ileostomy and was known to the colorectal surgery team. She presented with high output ileostomy and metabolic acidosis. Currently, she is status post exploratory laparotomy with segmental small bowel resection and closure of ileostomy. Discharge Planning Discharge pending clearance by colorectal surgery. She'll need follow-up with nephrology. PT recommends PT at rehabilitation. Patient is discussing with case management whether to go to [facility] versus home. Patient still considering the option of long-term care. (Arlin Gillespie MD R1) Attending Attestation Patient seen and examined with the resident team. Case reviewed and discussed Agree with plan of care as discussed with me and documented in the resident note. (Ana Solomon MD) Problem List: (1) History of diverticulitis Status: Acute Plan: Patient has history of diverticulitis. She developed high-output ileostomy. She is now status post exploratory laparotomy with segmental small bowel resection and closure of ileostomy. Postoperative day #7. Colorectal surgery following Small bowel series normal NG tube to suction Pain management: Morphine 1 mg every 4 hours IV pain 1-10, IV Tylenol 1000 mg every 6 hours, Percocet 1 tab by mouth every 6 hours pain 3-10 due to nausea/ vomiting Morphine 1 mg every 4 hours when necessary pain 1 through 10 - hold for hypotension Bowel regimen: Reglan 10 mg 3 times a day before meals, Carafate 1 g by mouth every 8 hours, Zofran for nausea Out of bed to chair and physical therapy (2) UTI (urinary tract infection) Status: Acute Plan: Urine micro growing group D enterococcus and yeast on repeat urine culture -Yeast Kayla krusei intrinsically resistant to Fluconazole Continue ampicillin 1 g every 12 IV, request help from pharmacy with dosing in the setting of renal insufficiency (3) Acute on chronic renal insufficiency Status: Resolved Plan: Nephrology consulted, appreciate their recommendations Creatinine improved to baseline -Patient is to follow-up with nephrology as an outpatient. 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 (4) COPD (chronic obstructive pulmonary disease) Status: Chronic Plan: -Albuterol 2.5 mg inhaler q 2 hr prn -Duonebs every 4 hours when necessary for shortness of breath or wheezing (5) Physical deconditioning Status: Acute Plan: -Physical therapy consulted to assist with out of bed -Physical therapy recommends discharge to rehabilitation facility (6) Osteoporosis Status: Chronic Plan: -Hold bisphosphonate therapy at this time -Will restart once tolerating by mouth therapy and nausea has improved -Fall precautions in place (7) Depression Status: Chronic Plan: Resume home psychotropic meds as follows: -Bupropion 100 mg tablets twice a day -Prozac 10 mg daily -Trazodone 100 mg daily at bedtime. (8) HTN (hypertension) Status: Chronic Plan: -Holding home Amlodipine as patient has been hypotensive -Clonidine 0.1 mg tablets every 6 hours for blood pressure greater than 180/90 -Hydralazine 10 mg PO TID when necessary blood pressure greater than 160/90 (9) FEN/ppx Status: Chronic Plan: Fluids: NS @ 125 mls/hr Electrolytes: Monitoring and will replete as needed Nutrition: Nothing by mouth except meds. DVT prophylaxis: Heparin 5000 units every 8 hours (10) Metabolic acidosis Status: Resolved Plan: Patient presented with normal anion gap metabolic acidosis suspected to be hyperchloremic metabolic acidosis due to loss from excessive ostomy output. -Status post ileostomy takedown on 01/20 -Metabolic derangements are improving (Arlin Gillespie MD R1) Arlin Gillespie MD R1 Jan 29, 2017 14:29 Ana Solomon MD Jan 30, 2017 10:23
[2017-01-29 16:31] VITALS: BP 163/82; PULSE 78; RESP 16; TEMP 98.5; O2SAT 97
[2017-01-29] MEDS: PANTOPRAZOLE SODIUM 40 MG VIAL IV PUSH SCH (17:10)
[2017-01-29 20:00] VITALS: BP 141/92; PULSE 84; RESP 18; TEMP 97.8; O2SAT 96
[2017-01-29] MEDS: traZODone HCL 100 MG TAB PO SCH (23:21)
[2017-01-30] VITALS (7 sets, daily range): BP systolic 125–155; BP diastolic 77–93; PULSE 76–89; RESP 16–20; TEMP 94.6–99.2; O2SAT 95–98
[2017-01-30] MEDS: NS + KCL 20 MEQ INJ 1,000 ML IV SCH ×3 (01:35→16:46)
[2017-01-30] MEDS: MORPHINE SULFATE 4 MG/ML INJ IV PUSH PRN ×5 (03:29→21:03)
[2017-01-30] MEDS: RESP: ALBUTEROL 2.5 MG/IPRATROPIUM 0.5 MG NEB (SCH) NEB ×6 (04:00→23:58)
[2017-01-30] MEDS: SUCRALFATE 1 GM/10 ML CUP PO SCH ×3 (06:00→21:06)
[2017-01-30 07:20] LABS: HEMATOCRIT 35.3 % (35.0-46.0); MEAN CELL VOLUME 90.8 FL (80.0-100.0); MEAN CORPUSCULAR HEMOGLOBIN 30.9 PG (27.0-34.0); PLATELET COUNT 243 TH/MM3 (150-450); RED BLOOD COUNT 3.89 MIL/MM3 (4.00-5.30); RED CELL DISTRIBUTION WIDTH 15.3 % (11.6-17.2); REVIEW FLAG FINAL; WHITE BLOOD COUNT 9.9 TH/MM3 (4.0-11.0)
[2017-01-30 07:44] LABS: ALKALINE PHOSPHATASE 89 U/L (45-117); ALT (GPT) 10 U/L (10-53); ANION GAP 11 MEQ/L (5-15); AST (GOT) 10 U/L (15-37); BICARBONATE 23.8 MEQ/L (21.0-32.0); BLOOD UREA NITROGEN 5 MG/DL (7-18); CHLORIDE 105 MEQ/L (98-107); GLOMERULAR FILTRATION RATE 63 ML/MIN (>89); POTASSIUM 3.2 MEQ/L (3.5-5.1); SODIUM (NA) 140 MEQ/L (136-145); TOTAL BILIRUBIN ADULT 0.5 MG/DL (0.2-1.0)
[2017-01-30] MEDS: FLUoxetine HCL 10 MG CAP PO SCH (08:37)
[2017-01-30] MEDS: SODIUM BICARBONATE 325 MG TAB PO SCH ×2 (08:37→21:07)
[2017-01-30] MEDS: buPROPion HCL 100 MG TAB PO SCH ×2 (08:37→21:06)
[2017-01-30] MEDS: SODIUM CHLORIDE 0.9% FLUSH 5 ML FLUSH IVF SCH ×2 (08:38→21:03)
[2017-01-30] MEDS: POTASSIUM CHLORIDE 10 MEQ CONTROLLED RELEASE TAB PO SCH (08:38)
[2017-01-30] MEDS: AMPICILLIN INJ 1,000 MG in SODIUM CHLORIDE 0.9% INJ 100 ML IV SCH ×2 (08:39→21:08)
[2017-01-30] MEDS: METOCLOPRAMIDE HCL 10 MG/2 ML VIAL IV PUSH SCH ×3 (08:40→16:33)
[2017-01-30] MEDS: HEPARIN SODIUM - SQ 10,000 UNITS/ML VIAL SQ SCH ×2 (08:41→21:07)
--- NOTE | 2017-01-30 10:14 | HHI.FPPN ---
Subjective Remarks Patient is doing better today. They have removed her NG tube. Her nausea has improved. She is getting out of the bed and working with physical therapy. No chest pain, fever, chills, shortness of breath. She does complain of chronic low back pain. (Castro Smiley MD R2) Objective Vitals Vital Signs Date Time Temp Pulse Resp B/P Pulse Ox O2 Delivery O2 Flow Rate FiO2 01/30/17 08:46 98.2 82 16 155/80 97 01/30/17 07:40 97 01/30/17 04:00 98.1 76 18 127/79 95 01/30/17 03:35 19 01/30/17 00:00 94.6 82 18 136/86 97 01/29/17 20:00 97.8 84 18 141/92 96 01/29/17 16:31 98.5 78 16 163/82 97 01/29/17 13:13 98.4 76 16 173/82 97 I/O 01/29/17 01/29/17 01/29/17 01/30/17 01/30/17 01/30/17 07:00 15:00 23:00 07:00 15:00 23:00 Intake Total 240 ml 480 ml 360 ml Output Total 900 ml 1000 ml 900 ml 900 ml 635 ml Balance -900 ml -760 ml -420 ml -540 ml -635 ml Intake Oral 240 ml 480 ml 360 ml Output Urine Total 900 ml 900 ml 900 ml 600 ml Gastric Drainage Total 1000 ml 35 ml # Voids 4 # Bowel Movements 0 3 3 (Castro Smiley MD R2) Result Diagram: 01/30/17 0640 01/30/17 0640 Objective Remarks GENERAL: Pale-appearing, thin. Lying comfortably in bed. SKIN: Skin intact. Cool and dry HEAD: Normocephalic, atraumatic EYES: Pupils equal round and reactive. Extraocular motions intact. No scleral icterus. No injection or drainage ENT: Mucous membranes moist CARDIOVASCULAR: Faint heart sounds, regular rate and rhythm RESPIRATORY: CTAB. Breath sounds equal bilaterally but poor effort. No wheezes, rales, or rhonchi GASTROINTESTINAL: Positive bowel sounds. Moderately tender to palpation. Abdominal incision healing well, no binder NEUROLOGICAL: Awake and alert. Cranial nerves II through XII grossly intact. Motor and sensory grossly within normal limits. Normal speech (Castro Smiley MD R2) A/P Assessment and Plan Ms. Rogers is a pleasant 66-year-old female, that presented with 6 days of abdominal pain, nausea, and persistent vomiting. She had a history of diverticulitis with temporary ileostomy and was known to the colorectal surgery team. She presented with high output ileostomy and metabolic acidosis. Currently, she is status post exploratory laparotomy with segmental small bowel resection and closure of ileostomy. Discharge Planning Discharge pending clearance by colorectal surgery. She'll need follow-up with nephrology. PT recommends PT at rehabilitation. Patient is discussing with case management whether to go to [facility] versus home. Patient still considering the option of long-term care. (Castro Smiley MD R2) Attending Attestation Patient seen and examined Case reviewed and discussed Agree with plan of care as discussed with me and documented in the resident note. (Ana Solomon MD) Problem List: (1) History of diverticulitis Status: Acute Plan: Patient has history of diverticulitis. She developed high-output ileostomy. She is now status post exploratory laparotomy with segmental small bowel resection and closure of ileostomy. Postoperative day #8. Diet advanced per surgery Colorectal surgery following Small bowel series normal Pain management (currently being held): Morphine 1 mg every 4 hours IV pain 1-10 , IV Tylenol 1000 mg every 6 hours, Percocet 1 tab by mouth every 6 hours pain 3 -10 due to nausea/vomiting Bowel regimen: Reglan 10 mg 3 times a day before meals, Carafate 1 g by mouth every 8 hours, Zofran for nausea Out of bed to chair and physical therapy (2) UTI (urinary tract infection) Status: Acute Plan: Urine micro growing group D enterococcus and yeast on repeat urine culture -Yeast Kayla krusei intrinsically resistant to Fluconazole Continue ampicillin 1 g every 12 IV, request help from pharmacy with dosing in the setting of renal insufficiency (3) Acute on chronic renal insufficiency Status: Resolved Plan: Nephrology consulted, appreciate their recommendations Creatinine improved to baseline -Patient is to follow-up with nephrology as an outpatient. 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 (4) COPD (chronic obstructive pulmonary disease) Status: Chronic Plan: -Albuterol 2.5 mg inhaler q 2 hr prn -Duonebs every 4 hours when necessary for shortness of breath or wheezing (5) Physical deconditioning Status: Acute Plan: -Physical therapy consulted to assist with out of bed -Physical therapy recommends discharge to rehabilitation facility (6) Osteoporosis Status: Chronic Plan: -Hold bisphosphonate therapy at this time -Will restart once tolerating by mouth therapy and nausea has improved -Fall precautions in place (7) Depression Status: Chronic Plan: Resume home psychotropic meds as follows: -Bupropion 100 mg tablets twice a day -Prozac 10 mg daily -Trazodone 100 mg daily at bedtime. (8) HTN (hypertension) Status: Chronic Plan: Home medication: Amlodipine 10 mg daily Currently on amlodipine 5 mg daily (9) FEN/ppx Status: Chronic Plan: Fluids: NS @ 125 mls/hr with potassium Electrolytes: Monitoring and will replete as needed Nutrition: Liquid diet, advance per surgery DVT prophylaxis: Heparin 5000 units every 8 hours (10) Metabolic acidosis Status: Resolved Plan: Patient presented with normal anion gap metabolic acidosis suspected to be hyperchloremic metabolic acidosis due to loss from excessive ostomy output. -Status post ileostomy takedown on 01/20 -Metabolic derangements are improving (Castro Smiley MD R2) Castro Smiley MD R2 Jan 30, 2017 10:14 Ana Solomon MD Jan 30, 2017 10:23
[2017-01-30] MEDS: amLODIPine BESYLATE 5 MG TAB PO SCH (11:25)
[2017-01-30] MEDS: PANTOPRAZOLE SODIUM 40 MG VIAL IV PUSH SCH (16:33)
[2017-01-30] MEDS: traZODone HCL 100 MG TAB PO SCH (21:07)
--- NOTE | 2017-01-30 21:56 | HHI.PR ---
Subjective Remarks C/R Surg - POD afebrile, VSS +BM UO good NGT min output Objective - Vital Signs Date Time Temp Pulse Resp B/P Pulse Ox O2 Delivery O2 Flow Rate FiO2 01/30/17 21:18 17 01/30/17 20:00 99.2 89 137/93 98 01/28/17 07:45 21 Result Diagram: 01/30/17 0640 01/30/17 0640 Objective Remarks PE alert Abd - soft, non-tender, min tympany, wound dry little BM A/P Assessment and Plan Imp: better renal function OOB PT DC NGT Steven King MD Jan 30, 2017 21:56
[2017-01-31 00:34] VITALS: BP 107/70; PULSE 80; RESP 20; TEMP 98.9; O2SAT 95
[2017-01-31] MEDS: NS + KCL 20 MEQ INJ 1,000 ML IV SCH ×2 (02:15→21:34)
[2017-01-31] MEDS: MORPHINE SULFATE 4 MG/ML INJ IV PUSH PRN (02:18)
[2017-01-31 04:00] VITALS: BP 122/75; PULSE 78; RESP 20; TEMP 99.1; O2SAT 95
[2017-01-31] MEDS: RESP: ALBUTEROL 2.5 MG/IPRATROPIUM 0.5 MG NEB (SCH) NEB ×6 (04:00→23:33)
[2017-01-31] MEDS: SUCRALFATE 1 GM/10 ML CUP PO SCH ×3 (06:12→21:34)
[2017-01-31] MEDS: METOCLOPRAMIDE HCL 10 MG/2 ML VIAL IV PUSH SCH ×3 (06:13→17:29)
[2017-01-31 07:10] LABS: BASOPHIL % 0.5 % (0.0-2.0); EOSINOPHIL % 0.2 % (0.0-4.0); HEMATOCRIT 33.2 % (35.0-46.0); HEMO FLAGS DIFF FINAL; LYMPHOCYTE # 2.3 TH/MM3 (1.0-4.8); MEAN CELL VOLUME 91.7 FL (80.0-100.0); MEAN CORPUSCULAR HEMOGLOBIN 30.7 PG (27.0-34.0); MEAN CORPUSCULAR HGB CONC 33.4 % (32.0-36.0); MONO % 6.4 % (0.0-8.0); NEUT % 63.9 % (16.0-70.0); PLATELET COUNT 212 TH/MM3 (150-450); RED BLOOD COUNT 3.62 MIL/MM3 (4.00-5.30); RED CELL DISTRIBUTION WIDTH 15.5 % (11.6-17.2); WHITE BLOOD COUNT 7.8 TH/MM3 (4.0-11.0)
[2017-01-31 07:19] LABS: ALT (GPT) 13 U/L (10-53); ANION GAP 10 MEQ/L (5-15); AST (GOT) 9 U/L (15-37); BICARBONATE 23.9 MEQ/L (21.0-32.0); BLOOD UREA NITROGEN 5 MG/DL (7-18); CHLORIDE 108 MEQ/L (98-107); GLOMERULAR FILTRATION RATE 60 ML/MIN (>89); POTASSIUM 3.7 MEQ/L (3.5-5.1); SODIUM (NA) 142 MEQ/L (136-145)
[2017-01-31 07:20] VITALS: BP 142/89; PULSE 86; RESP 19; TEMP 97.9; O2SAT 96
[2017-01-31 07:21] LABS: ALKALINE PHOSPHATASE 79 U/L (45-117); TOTAL BILIRUBIN ADULT 0.4 MG/DL (0.2-1.0)
--- NOTE | 2017-01-31 08:33 | HHI.FPPN ---
Subjective Remarks Ms Rogers says she is feeling much better today, the nausea is pretty much gone and she does not have abdominal pain. Her major concern is her chronic back pain which is diminishing her quality of life. She would like to have her home pain regimen back on board. She also would like her diet advanced to softs today. (Arlin Gillespie MD R1) Objective Vitals Vital Signs Date Time Temp Pulse Resp B/P Pulse Ox O2 Delivery O2 Flow Rate FiO2 01/31/17 07:20 97.9 86 19 142/89 96 01/31/17 04:00 99.1 78 20 122/75 95 01/31/17 02:39 18 01/31/17 00:34 98.9 80 20 107/70 95 01/30/17 20:00 99.2 89 20 137/93 98 01/30/17 16:28 98.5 84 16 125/77 95 01/30/17 12:46 98.2 84 16 137/82 97 01/30/17 08:46 98.2 82 16 155/80 97 I/O 01/30/17 01/30/17 01/30/17 01/31/17 01/31/17 01/31/17 07:00 15:00 23:00 07:00 15:00 23:00 Intake Total 360 ml 623 ml Output Total 900 ml 1135 ml 900 ml 200 ml Balance -540 ml -1135 ml -900 ml -200 ml 623 ml Intake Oral 360 ml IV Total 623 ml Output Urine Total 900 ml 1100 ml 900 ml 200 ml Gastric Drainage Total 35 ml # Bowel Movements 3 1 1 (Arlin Gillespie MD R1) Result Diagram: 01/31/1721 01/31/17 0621 Objective Remarks GENERAL: Pale-appearing, thin. Lying comfortably in bed. SKIN: Skin intact. Cool and dry HEAD: Normocephalic, atraumatic EYES: Pupils equal round and reactive. Extraocular motions intact. No scleral icterus. No injection or drainage ENT: Mucous membranes moist CARDIOVASCULAR: Faint heart sounds, regular rate and rhythm RESPIRATORY: CTAB. Breath sounds equal bilaterally but poor effort. No wheezes, rales, or rhonchi GASTROINTESTINAL: Positive bowel sounds. Moderately tender to palpation. Abdominal incision healing well, no binder NEUROLOGICAL: Awake and alert. Cranial nerves II through XII grossly intact. Motor and sensory grossly within normal limits. Normal speech (Arlin Gillespie MD R1) A/P Assessment and Plan Ms. Rogers is a pleasant 66-year-old female, that presented with 6 days of abdominal pain, nausea, and persistent vomiting. She had a history of diverticulitis with temporary ileostomy and was known to the colorectal surgery team. She presented with high output ileostomy and metabolic acidosis. Currently, she is status post exploratory laparotomy with segmental small bowel resection and closure of ileostomy. Discharge Planning Discharge pending clearance by colorectal surgery. She'll need follow-up with nephrology. PT recommends PT at rehabilitation. Patient is discussing with case management whether to go to [facility] versus home. Patient still considering the option of long-term care. (Arlin Gillespie MD R1) Attending Attestation Patient seen and examined with the resident team. Case reviewed and discussed Agree with plan of care as discussed with me and documented in the resident note. (Ana Solomon MD) Problem List: (1) History of diverticulitis Status: Chronic Plan: Patient has history of diverticulitis. She developed high-output ileostomy. She is now status post exploratory laparotomy with segmental small bowel resection and closure of ileostomy. Postoperative day #9. Diet advanced per surgery Colorectal surgery following Small bowel series normal Pain management: IV Tylenol 1000 mg every 6 hours, Percocet 2 tab by mouth every 4 hours pain 6-10 Bowel regimen: Reglan 10 mg 3 times a day before meals, Carafate 1 g by mouth every 8 hours, Zofran for nausea, docusate 1 tab by mouth twice a day Out of bed to chair and physical therapy (2) UTI (urinary tract infection) Status: Resolved Plan: Urine micro growing group D enterococcus and yeast on repeat urine culture -Yeast Kayla krusei intrinsically resistant to Fluconazole - most likely contaminant -DC ampicillin 1 g every 12h IV, patient has received 4 doses (3) Acute on chronic renal insufficiency Status: Resolved Plan: Nephrology consulted, appreciate their recommendations Creatinine improved to baseline -Patient is to follow-up with nephrology as an outpatient. 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 (4) COPD (chronic obstructive pulmonary disease) Status: Chronic Plan: -Albuterol 2.5 mg inhaler q 2 hr prn -Duonebs every 4 hours when necessary for shortness of breath or wheezing (5) Physical deconditioning Status: Acute Plan: -Physical therapy consulted to assist with out of bed and exercises -Physical therapy recommends discharge to rehabilitation facility (6) Osteoporosis Status: Chronic Plan: -Hold bisphosphonate therapy at this time -Will restart once tolerating by mouth therapy and nausea has improved -Fall precautions in place (7) Depression Status: Chronic Plan: Resume home psychotropic meds as follows: -Bupropion 100 mg tablets twice a day -Prozac 10 mg daily -Trazodone 100 mg daily at bedtime (8) HTN (hypertension) Status: Chronic Plan: Home medication: Amlodipine 10 mg daily Currently on amlodipine 5 mg daily (9) FEN/ppx Status: Chronic Plan: Fluids: NS @ 75 mls/hr with potassium Electrolytes: Monitoring and will replete as needed Nutrition: Liquid diet, advance per surgery DVT prophylaxis: Heparin 5000 units every 8 hours (10) Metabolic acidosis Status: Resolved Plan: Patient presented with normal anion gap metabolic acidosis suspected to be hyperchloremic metabolic acidosis due to loss from excessive ostomy output. -Status post ileostomy takedown on 01/20 -Metabolic derangements are improving (Arlin Gillespie MD R1) Arlin Gillespie MD R1 Jan 31, 2017 08:33 Ana Solomon MD Feb 02, 2017 16:42
[2017-01-31] MEDS: AMPICILLIN INJ 1,000 MG in SODIUM CHLORIDE 0.9% INJ 100 ML IV SCH (09:00)
[2017-01-31] MEDS: buPROPion HCL 100 MG TAB PO SCH ×2 (09:00→21:31)
[2017-01-31] MEDS: SODIUM CHLORIDE 0.9% FLUSH 5 ML FLUSH IVF SCH ×2 (09:00→21:00)
[2017-01-31] MEDS: SODIUM BICARBONATE 325 MG TAB PO SCH ×2 (09:40→21:32)
[2017-01-31] MEDS: FLUoxetine HCL 10 MG CAP PO SCH (09:40)
[2017-01-31] MEDS: POTASSIUM CHLORIDE 10 MEQ CONTROLLED RELEASE TAB PO SCH (09:40)
[2017-01-31] MEDS: amLODIPine BESYLATE 5 MG TAB PO SCH (09:41)
[2017-01-31] MEDS: HEPARIN SODIUM - SQ 10,000 UNITS/ML VIAL SQ SCH ×2 (09:42→21:31)
[2017-01-31 12:00] VITALS: BP 105/67; PULSE 80; RESP 18; TEMP 97.6; O2SAT 97
[2017-01-31] MEDS: oxyCODONE/ACETAMINOPHEN 5 MG/325 MG TAB PO PRN ×3 (14:46→22:35)
[2017-01-31 16:45] VITALS: BP 105/59; PULSE 87; RESP 18; TEMP 97.4; O2SAT 97
[2017-01-31] MEDS: PANTOPRAZOLE SODIUM 40 MG VIAL IV PUSH SCH (17:29)
[2017-01-31 20:00] VITALS: BP 121/71; PULSE 81; RESP 18; TEMP 99; O2SAT 96
[2017-01-31] MEDS: DOCUSATE SODIUM 50 MG/SENNA 8.6 MG TAB PO SCH (21:00)
[2017-01-31] MEDS: traZODone HCL 100 MG TAB PO SCH (21:32)
[2017-02-01 00:13] VITALS: BP 122/73; PULSE 76; RESP 20; TEMP 97.8; O2SAT 93
[2017-02-01] MEDS: oxyCODONE/ACETAMINOPHEN 5 MG/325 MG TAB PO PRN ×5 (02:52→20:57)
[2017-02-01] MEDS: RESP: ALBUTEROL 2.5 MG/IPRATROPIUM 0.5 MG NEB (SCH) NEB ×2 (03:52→08:00)
[2017-02-01 04:22] VITALS: BP 109/67; PULSE 75; RESP 18; TEMP 98.3; O2SAT 96
[2017-02-01] MEDS: SUCRALFATE 1 GM/10 ML CUP PO SCH ×3 (06:33→20:58)
[2017-02-01] MEDS: NS + KCL 20 MEQ INJ 1,000 ML IV SCH (06:37)
[2017-02-01 07:40] LABS: HEMATOCRIT 30.6 % (35.0-46.0); PLATELET COUNT 191 TH/MM3 (150-450); RED BLOOD COUNT 3.26 MIL/MM3 (4.00-5.30); RED CELL DISTRIBUTION WIDTH 15.6 % (11.6-17.2); REVIEW FLAG FINAL
[2017-02-01 07:52] VITALS: BP 101/67; PULSE 76; RESP 16; TEMP 97.7; O2SAT 94
[2017-02-01] MEDS: HEPARIN SODIUM - SQ 10,000 UNITS/ML VIAL SQ SCH ×2 (08:02→20:59)
[2017-02-01] MEDS: METOCLOPRAMIDE HCL 10 MG/2 ML VIAL IV PUSH SCH ×3 (08:02→15:38)
[2017-02-01] MEDS: amLODIPine BESYLATE 5 MG TAB PO SCH (08:03)
[2017-02-01] MEDS: POTASSIUM CHLORIDE 10 MEQ CONTROLLED RELEASE TAB PO SCH (08:03)
[2017-02-01] MEDS: buPROPion HCL 100 MG TAB PO SCH ×2 (08:03→20:58)
[2017-02-01] MEDS: SODIUM BICARBONATE 325 MG TAB PO SCH ×2 (08:03→20:58)
[2017-02-01] MEDS: DOCUSATE SODIUM 50 MG/SENNA 8.6 MG TAB PO SCH ×2 (08:03→20:58)
[2017-02-01] MEDS: FLUoxetine HCL 10 MG CAP PO SCH (08:03)
[2017-02-01] MEDS: SODIUM CHLORIDE 0.9% FLUSH 5 ML FLUSH IVF SCH ×2 (08:05→20:59)
--- NOTE | 2017-02-01 08:24 | HHI.FPPN ---
Subjective Remarks She is doing better this morning. Her nausea is improved. Her pain is better controlled with Percocet. She had 5 soft bowel movements yesterday. Her appetite is good. Last night she had meatloaf, mashed potatoes. No chest pain , fever, chills, shortness of breath. Objective Vitals Vital Signs Date Time Temp Pulse Resp B/P Pulse Ox O2 Delivery O2 Flow Rate FiO2 02/01/17 07:52 97.7 76 16 101/67 94 02/01/17 04:22 98.3 75 18 109/67 96 02/01/17 00:13 97.8 76 20 122/73 93 01/31/17 20:00 99.0 81 18 121/71 96 01/31/17 16:45 97.4 87 18 105/59 97 01/31/17 12:00 97.6 80 18 105/67 97 I/O 01/31/17 01/31/17 01/31/17 02/01/17 02/01/17 02/01/17 07:00 15:00 23:00 07:00 15:00 23:00 Intake Total 2078 ml 422 ml 655 ml Output Total 200 ml 700 ml 1600 ml Balance -200 ml 1378 ml 422 ml -945 ml Intake Oral 480 ml IV Total 1598 ml 422 ml 655 ml Output Urine Total 200 ml 700 ml 1600 ml # Bowel Movements 1 2 3 Result Diagram: 02/01/17 0720 01/31/17 0621 Objective Remarks GENERAL: Pale-appearing, thin. Lying comfortably in bed. SKIN: Skin intact. Cool and dry HEAD: Normocephalic, atraumatic EYES: Pupils equal round and reactive. Extraocular motions intact. No scleral icterus. No injection or drainage ENT: Mucous membranes moist CARDIOVASCULAR: Faint heart sounds, regular rate and rhythm RESPIRATORY: CTAB. Breath sounds equal bilaterally but poor effort. No wheezes, rales, or rhonchi GASTROINTESTINAL: Positive bowel sounds. Moderately tender to palpation. Abdominal incision healing well, no binder NEUROLOGICAL: Awake and alert. Cranial nerves II through XII grossly intact. Motor and sensory grossly within normal limits. Normal speech A/P Assessment and Plan Ms. Rogers is a pleasant 66-year-old female, that presented with 6 days of abdominal pain, nausea, and persistent vomiting. She had a history of diverticulitis with temporary ileostomy and was known to the colorectal surgery team. She presented with high output ileostomy and metabolic acidosis. Currently, she is status post exploratory laparotomy with segmental small bowel resection and closure of ileostomy. Discharge Planning Discharge pending clearance by colorectal surgery. She'll need follow-up with nephrology. PT recommends PT at rehabilitation. Patient is discussing with case management whether to go to [facility] versus home. Patient still considering the option of long-term care. Problem List: (1) History of diverticulitis Status: Acute Plan: Patient has history of diverticulitis. She developed high-output ileostomy. She is now status post exploratory laparotomy with segmental small bowel resection and closure of ileostomy. Postoperative day #10. Diet advanced per surgery Colorectal surgery following Small bowel series normal Pain management: IV Tylenol 1000 mg every 6 hours, Percocet 2 tab by mouth every 4 hours pain 6-10 Bowel regimen: Reglan 10 mg 3 times a day before meals, Carafate 1 g by mouth every 8 hours, Zofran for nausea, docusate 1 tab by mouth twice a day Out of bed to chair and physical therapy (2) Acute on chronic renal insufficiency Status: Resolved Plan: Nephrology consulted, appreciate their recommendations Creatinine improved to baseline -Patient is to follow-up with nephrology as an outpatient. 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 (3) COPD (chronic obstructive pulmonary disease) Status: Chronic Plan: -Albuterol 2.5 mg inhaler q 2 hr prn -Duonebs every 4 hours when necessary for shortness of breath or wheezing (4) Physical deconditioning Status: Acute Plan: -Physical therapy consulted to assist with out of bed and exercises -Physical therapy recommends discharge to rehabilitation facility (5) Osteoporosis Status: Chronic Plan: -Hold bisphosphonate therapy at this time -Will restart once tolerating by mouth therapy and nausea has improved -Fall precautions in place (6) Depression Status: Chronic Plan: Resume home psychotropic meds as follows: -Bupropion 100 mg tablets twice a day -Prozac 10 mg daily -Trazodone 100 mg daily at bedtime (7) HTN (hypertension) Status: Chronic Plan: Home medication: Amlodipine 10 mg daily Currently on amlodipine 5 mg daily (8) FEN/ppx Status: Chronic Plan: Fluids: NS @ 70 mls/hr Electrolytes: Monitoring and will replete as needed Nutrition: Regular diet per surgery DVT prophylaxis: Heparin 5000 units every 8 hours (9) Metabolic acidosis Status: Resolved Plan: Patient presented with normal anion gap metabolic acidosis suspected to be hyperchloremic metabolic acidosis due to loss from excessive ostomy output. -Status post ileostomy takedown on 01/20 -Metabolic derangements are improving (10) UTI (urinary tract infection) Status: Resolved Plan: Urine micro growing group D enterococcus and yeast on repeat urine culture -Yeast Kayla krusei intrinsically resistant to Fluconazole - most likely contaminant -DC ampicillin 1 g every 12h IV, patient has received 4 doses Castro Smiley MD R2 Feb 01, 2017 08:24
[2017-02-01 08:25] LABS: BICARBONATE 20.2 MEQ/L (21.0-32.0); POTASSIUM 5.3 MEQ/L (3.5-5.1); TOTAL BILIRUBIN ADULT 0.2 MG/DL (0.2-1.0)
[2017-02-01 12:18] VITALS: BP 102/63; PULSE 78; RESP 16; TEMP 97.6; O2SAT 97
[2017-02-01] MEDS: SODIUM CHLOR 0.9% 1000 ML INJ 1,000 ML IV SCH (13:13)
[2017-02-01] MEDS: PANTOPRAZOLE SODIUM 40 MG VIAL IV PUSH SCH (15:37)
[2017-02-01 15:56] VITALS: BP 117/65; PULSE 84; RESP 16; TEMP 97.1; O2SAT 96
[2017-02-01 20:00] VITALS: BP 95/67; PULSE 80; RESP 20; TEMP 97.6; O2SAT 99
[2017-02-01] MEDS: traZODone HCL 100 MG TAB PO SCH (20:58)
[2017-02-02] VITALS: BP 86/50; PULSE 75; RESP 20; TEMP 98.8; O2SAT 96
[2017-02-02] MEDS: oxyCODONE/ACETAMINOPHEN 5 MG/325 MG TAB PO PRN ×6 (01:14→22:09)
[2017-02-02] MEDS: SODIUM CHLOR 0.9% 1000 ML INJ 1,000 ML IV SCH (01:16)
[2017-02-02 04:00] VITALS: BP 111/69; PULSE 75; RESP 20; TEMP 98.6; O2SAT 96
[2017-02-02] MEDS: SUCRALFATE 1 GM/10 ML CUP PO SCH ×3 (06:05→22:12)
[2017-02-02 06:40] LABS: MEAN CELL VOLUME 93.2 FL (80.0-100.0); MEAN CORPUSCULAR HEMOGLOBIN 31.2 PG (27.0-34.0); MEAN CORPUSCULAR HGB CONC 33.5 % (32.0-36.0); PLATELET COUNT 199 TH/MM3 (150-450); RED BLOOD COUNT 3.32 MIL/MM3 (4.00-5.30); RED CELL DISTRIBUTION WIDTH 15.5 % (11.6-17.2); REVIEW FLAG FINAL; WHITE BLOOD COUNT 6.6 TH/MM3 (4.0-11.0)
[2017-02-02 07:02] LABS: ALKALINE PHOSPHATASE 83 U/L (45-117); ALT (GPT) 9 U/L (10-53); ANION GAP 8 MEQ/L (5-15); AST (GOT) 5 U/L (15-37); BICARBONATE 22.8 MEQ/L (21.0-32.0); BLOOD UREA NITROGEN 8 MG/DL (7-18); CHLORIDE 110 MEQ/L (98-107); GLOMERULAR FILTRATION RATE 46 ML/MIN (>89); POTASSIUM 4.1 MEQ/L (3.5-5.1); SODIUM (NA) 141 MEQ/L (136-145); TOTAL BILIRUBIN ADULT 0.2 MG/DL (0.2-1.0)
[2017-02-02] MEDS: METOCLOPRAMIDE HCL 10 MG/2 ML VIAL IV PUSH SCH (08:00)
[2017-02-02 08:09] VITALS: BP 104/61; PULSE 72; RESP 20; TEMP 98; O2SAT 96
[2017-02-02] MEDS: POTASSIUM CHLORIDE 10 MEQ CONTROLLED RELEASE TAB PO SCH (08:35)
[2017-02-02] MEDS: buPROPion HCL 100 MG TAB PO SCH ×3 (08:35→22:12)
[2017-02-02] MEDS: DOCUSATE SODIUM 50 MG/SENNA 8.6 MG TAB PO SCH (08:35)
[2017-02-02] MEDS: SODIUM BICARBONATE 325 MG TAB PO SCH ×2 (08:35→21:00)
[2017-02-02] MEDS: FLUoxetine HCL 10 MG CAP PO SCH (08:35)
[2017-02-02] MEDS: HEPARIN SODIUM - SQ 10,000 UNITS/ML VIAL SQ SCH ×2 (08:36→22:13)
[2017-02-02] MEDS: SODIUM CHLORIDE 0.9% FLUSH 5 ML FLUSH IVF SCH ×2 (09:00→21:00)
[2017-02-02] MEDS: amLODIPine BESYLATE 5 MG TAB PO SCH (09:00)
[2017-02-02 12:15] VITALS: BP 115/62; PULSE 76; RESP 20; TEMP 98.4; O2SAT 96
--- NOTE | 2017-02-02 13:46 | HHI.FPPN ---
Subjective Remarks No acute events overnight. Afebrile, vital signs stable. Patient seen while walking with PT. She continues to complain of back pain, requests morphine. Also states she has been urinating a lot. Tolerating PO. (Sumi Gentile MD R3) Objective Vitals Vital Signs Date Time Temp Pulse Resp B/P Pulse Ox O2 Delivery O2 Flow Rate FiO2 02/02/17 12:15 98.4 76 20 115/62 96 02/02/17 08:09 98.0 72 20 104/61 96 02/02/17 04:00 98.6 75 20 111/69 96 02/02/17 00:00 98.8 75 20 86/50 96 02/01/17 20:00 97.6 80 20 95/67 99 02/01/17 15:56 97.1 84 16 117/65 96 I/O 02/01/17 02/01/17 02/01/17 02/02/17 02/02/17 02/02/17 07:00 15:00 23:00 07:00 15:00 23:00 Intake Total 655 ml 1112 ml 786 ml 695 ml Output Total 1600 ml 600 ml 300 ml 500 ml Balance -945 ml 512 ml 486 ml 195 ml Intake Oral 600 ml 240 ml 60 ml IV Total 655 ml 546 ml 635 ml Other 512 ml Output Urine Total 1600 ml 600 ml 300 ml 500 ml # Voids 1 # Bowel Movements 3 2 0 0 (Sumi Gentile MD R3) Result Diagram: 02/02/17 0610 02/02/17 0610 Objective Remarks GENERAL: Pale-appearing, thin. SKIN: Skin intact. Cool and dry HEAD: Normocephalic, atraumatic EYES: Pupils equal round and reactive. Extraocular motions intact. No scleral icterus. No injection or drainage ENT: Mucous membranes moist CARDIOVASCULAR: Faint heart sounds, regular rate and rhythm RESPIRATORY: CTAB. Breath sounds equal bilaterally but poor effort. No wheezes, rales, or rhonchi GASTROINTESTINAL: Positive bowel sounds. NT/ND. Abdominal incision healing well , no binder. NEUROLOGICAL: Awake and alert. Cranial nerves II through XII grossly intact. Motor and sensory grossly within normal limits. Normal speech (Sumi Gentile MD R3) A/P Assessment and Plan Ms. Rogers is a pleasant 66-year-old female, that presented with 6 days of abdominal pain, nausea, and persistent vomiting. She had a history of diverticulitis with temporary ileostomy and was known to the colorectal surgery team. She presented with high output ileostomy and metabolic acidosis. Currently, she is status post exploratory laparotomy with segmental small bowel resection and closure of ileostomy. Discharge Planning Discharge pending clearance by colorectal surgery. She'll need follow-up with nephrology. PT recommends PT at rehabilitation. Patient is discussing with case management whether to go to [facility] versus home. Patient still considering the option of long-term care. (Sumi Gentile MD R3) Attending Attestation Patient seen and examined with the resident team. Case reviewed and discussed Agree with plan of care as discussed with me and documented in the resident note. (Ana Solomon MD) Problem List: (1) History of diverticulitis Status: Chronic Plan: Patient has history of diverticulitis. She developed high-output ileostomy. She is now status post exploratory laparotomy with segmental small bowel resection and closure of ileostomy. Postoperative day #11. Diet advanced per surgery Colorectal surgery following Small bowel series normal Pain management: Percocet 2 tab by mouth every 4 hours pain 6-10, holding morphine unless cleared by Colorectal surgery given patient's recent ileus Bowel regimen: Reglan 10 mg 3 times a day before meals, Carafate 1 g by mouth every 8 hours, Zofran for nausea, docusate 1 tab by mouth twice a day Out of bed to chair and physical therapy (2) Acute on chronic renal insufficiency Status: Resolved Plan: Nephrology consulted, appreciate their recommendations Creatinine improved to baseline -Patient is to follow-up with nephrology as an outpatient. 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 (3) COPD (chronic obstructive pulmonary disease) Status: Chronic Plan: -Albuterol 2.5 mg inhaler q 2 hr prn -Duonebs every 4 hours when necessary for shortness of breath or wheezing (4) Physical deconditioning Status: Acute Plan: -Physical therapy consulted to assist with out of bed and exercises -Physical therapy recommends discharge to rehabilitation facility (5) Osteoporosis Status: Chronic Plan: -Hold bisphosphonate therapy at this time -Will restart once tolerating by mouth therapy and nausea has improved -Fall precautions in place (6) Depression Status: Chronic Plan: Resume home psychotropic meds as follows: -Bupropion 100 mg tablets twice a day -Prozac 10 mg daily -Trazodone 100 mg daily at bedtime (7) HTN (hypertension) Status: Chronic Plan: Home medication: Amlodipine 10 mg daily Currently on amlodipine 5 mg daily 2/ hypotension (8) FEN/ppx Status: Chronic Plan: Fluids: HLIV Electrolytes: Monitoring and will replete as needed Nutrition: Regular diet per surgery DVT prophylaxis: Heparin 5000 units every 8 hours (9) Metabolic acidosis Status: Resolved Plan: Patient presented with normal anion gap metabolic acidosis suspected to be hyperchloremic metabolic acidosis due to loss from excessive ostomy output. -Status post ileostomy takedown on 01/20 -Metabolic derangements have improved (10) UTI (urinary tract infection) Status: Resolved Plan: Urine micro growing group D enterococcus and yeast on repeat urine culture -Yeast Kayla krusei intrinsically resistant to Fluconazole - most likely contaminant -DC ampicillin 1 g every 12h IV, patient has received 4 doses (Sumi Gentile MD R3) Sumi Gentile MD R3 Feb 02, 2017 13:46 Ana Solomon MD Feb 02, 2017 16:37
--- NOTE | 2017-02-02 15:51 | HHI.PR ---
Subjective Remarks C/R Surg - POD afebrile, VSS +BM - liq UO good benito PO Objective - Vital Signs Date Time Temp Pulse Resp B/P Pulse Ox O2 Delivery O2 Flow Rate FiO2 02/02/17 12:15 98.4 76 20 115/62 96 Result Diagram: 02/02/1760902/02/17609 Objective Remarks PE alert Abd - soft, non-tender, min tympany, little BM A/P Assessment and Plan Imp: better renal function OOB PT reg diet restart PO pain Steven Vazquez MD Feb 02, 2017 15:51
[2017-02-02] MEDS ORDERED: DOCUSATE SODIUM 50 MG/SENNA 8.6 MG TAB PO PRN (16:00)
[2017-02-02] MEDS ORDERED: METOCLOPRAMIDE HCL 10 MG/2 ML VIAL IV PUSH PRN (16:00)
[2017-02-02 16:11] VITALS: BP 102/57; PULSE 71; RESP 20; TEMP 97.6; O2SAT 97
[2017-02-02] MEDS: PANTOPRAZOLE SODIUM 40 MG VIAL IV PUSH SCH (17:00)
[2017-02-02 20:36] VITALS: BP 114/63; PULSE 61; RESP 18; TEMP 98.4; O2SAT 96
[2017-02-02] MEDS: traZODone HCL 100 MG TAB PO SCH (22:12)
[2017-02-03] VITALS (7 sets, daily range): BP systolic 88–109; BP diastolic 52–64; PULSE 63–76; RESP 16–18; TEMP 96.5–98.2; O2SAT 94–96
[2017-02-03] MEDS: oxyCODONE/ACETAMINOPHEN 5 MG/325 MG TAB PO PRN ×5 (02:02→22:06)
[2017-02-03 06:24] LABS: AUTOMATED NEUTROPHIL # 3.2 TH/MM3 (1.8-7.7); BASOPHIL # 0.1 TH/MM3 (0-0.2); BASOPHIL % 0.8 % (0.0-2.0); EOSINOPHIL # 0.2 TH/MM3 (0-0.4); EOSINOPHIL % 2.6 % (0.0-4.0); HEMATOCRIT 31.1 % (35.0-46.0); HEMO FLAGS DIFF FINAL; LYMPH % 36.9 % (9.0-44.0); LYMPHOCYTE # 2.2 TH/MM3 (1.0-4.8); MEAN CELL VOLUME 93.4 FL (80.0-100.0); MEAN CORPUSCULAR HEMOGLOBIN 30.6 PG (27.0-34.0); MEAN CORPUSCULAR HGB CONC 32.8 % (32.0-36.0); MONO % 6.4 % (0.0-8.0); NEUT % 53.3 % (16.0-70.0); PLATELET COUNT 213 TH/MM3 (150-450); RED BLOOD COUNT 3.33 MIL/MM3 (4.00-5.30); RED CELL DISTRIBUTION WIDTH 15.1 % (11.6-17.2)
[2017-02-03 07:00] LABS: BICARBONATE 22.9 MEQ/L (21.0-32.0); POTASSIUM 4.3 MEQ/L (3.5-5.1)
[2017-02-03] MEDS: POTASSIUM CHLORIDE 10 MEQ CONTROLLED RELEASE TAB PO SCH (08:10)
[2017-02-03] MEDS: buPROPion HCL 100 MG TAB PO SCH ×2 (08:11→17:54)
[2017-02-03] MEDS: SUCRALFATE 1 GM/10 ML CUP PO SCH ×2 (08:12→22:06)
[2017-02-03] MEDS: SODIUM BICARBONATE 325 MG TAB PO SCH (08:12)
[2017-02-03] MEDS: FLUoxetine HCL 10 MG CAP PO SCH (08:12)
[2017-02-03] MEDS: HEPARIN SODIUM - SQ 10,000 UNITS/ML VIAL SQ SCH ×2 (08:16→22:07)
[2017-02-03] MEDS: SODIUM CHLORIDE 0.9% FLUSH 5 ML FLUSH IVF SCH ×2 (09:00→22:06)
[2017-02-03] MEDS: amLODIPine BESYLATE 5 MG TAB PO SCH (09:00)
--- NOTE | 2017-02-03 10:41 | HHI.FPPN ---
Subjective Remarks Patient states she is doing better today. Her nausea is improved. She is getting out of bed frequently through the day. She is having soft bowel movements daily. Her appetite is improved. No chest pain, shortness of breath , fever, chills. (Castro Smiley MD R2) Objective Vitals Vital Signs Date Time Temp Pulse Resp B/P Pulse Ox O2 Delivery O2 Flow Rate FiO2 02/03/17 08:04 96.5 63 16 96/53 95 02/03/17 05:16 98.0 70 18 109/57 96 02/03/17 00:15 98/53 02/03/17 00:00 97.5 74 18 88/52 94 02/02/17 20:36 98.4 61 18 114/63 96 02/02/17 16:11 97.6 71 20 102/57 97 02/02/17 12:15 98.4 76 20 115/62 96 I/O 02/02/17 02/02/17 02/02/17 02/03/17 02/03/17 02/03/17 07:00 15:00 23:00 07:00 15:00 23:00 Intake Total 695 ml 360 ml 240 ml Output Total 500 ml 1000 ml 1200 ml 650 ml Balance 195 ml -640 ml -960 ml -650 ml Intake Oral 60 ml 360 ml 240 ml IV Total 635 ml Output Urine Total 500 ml 1000 ml 1200 ml 650 ml # Voids 2 2 # Bowel Movements 0 1 0 0 (Castro Smiley MD R2) Result Diagram: 02/03/17 0606 02/03/17 06 Objective Remarks GENERAL: Pale-appearing, thin. SKIN: Skin intact. Cool and dry HEAD: Normocephalic, atraumatic EYES: Pupils equal round and reactive. Extraocular motions intact. No scleral icterus. No injection or drainage ENT: Mucous membranes moist CARDIOVASCULAR: Faint heart sounds, regular rate and rhythm RESPIRATORY: CTAB. Breath sounds equal bilaterally but poor effort. No wheezes, rales, or rhonchi GASTROINTESTINAL: Positive bowel sounds. NT/ND. Abdominal incision healing well , no binder. NEUROLOGICAL: Awake and alert. Cranial nerves II through XII grossly intact. Motor and sensory grossly within normal limits. Normal speech (Castro Smiley MD R2) A/P Assessment and Plan Ms. Rogers is a pleasant 66-year-old female, that presented with 6 days of abdominal pain, nausea, and persistent vomiting. She had a history of diverticulitis with temporary ileostomy and was known to the colorectal surgery team. She presented with high output ileostomy and metabolic acidosis. Currently, she is status post exploratory laparotomy with segmental small bowel resection and closure of ileostomy. Discharge Planning Discharge pending clearance by colorectal surgery. She'll need follow-up with nephrology. PT recommends PT at rehabilitation. Patient has agreed to go to a long-term care facility. Likely [facility]. (Castro Smiley MD R2) Attending Attestation Patient seen and examined. Case reviewed and discussed Agree with plan of care as discussed with me and documented in the resident note. (Ana Solomon MD) Problem List: (1) History of diverticulitis Status: Chronic Plan: Patient has history of diverticulitis. She developed high-output ileostomy. She is now status post exploratory laparotomy with segmental small bowel resection and closure of ileostomy. Postoperative day #11. Diet advanced per surgery Colorectal surgery following Small bowel series normal Pain management: Percocet 2 tab by mouth every 4 hours pain 6-10, holding morphine unless cleared by Colorectal surgery given patient's recent ileus Bowel regimen: Reglan 10 mg 3 times a day before meals, Carafate 1 g by mouth every 8 hours, Zofran for nausea, docusate 1 tab by mouth twice a day Out of bed to chair and physical therapy (2) Acute on chronic renal insufficiency Status: Resolved Plan: Nephrology consulted, appreciate their recommendations Creatinine improved to baseline -Patient is to follow-up with nephrology as an outpatient. 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 (3) COPD (chronic obstructive pulmonary disease) Status: Chronic Plan: -Albuterol 2.5 mg inhaler q 2 hr prn -Duonebs every 4 hours when necessary for shortness of breath or wheezing (4) Physical deconditioning Status: Acute Plan: -Physical therapy consulted to assist with out of bed and exercises -Physical therapy recommends discharge to rehabilitation facility (5) Osteoporosis Status: Chronic Plan: -Hold bisphosphonate therapy at this time -Will restart once tolerating by mouth therapy and nausea has improved -Fall precautions in place (6) Depression Status: Chronic Plan: Resume home psychotropic meds as follows: -Bupropion 100 mg tablets twice a day -Prozac 10 mg daily -Trazodone 100 mg daily at bedtime (7) HTN (hypertension) Status: Chronic Plan: Home medication: Amlodipine 10 mg daily Currently on amlodipine 5 mg daily 2/ hypotension (8) FEN/ppx Status: Chronic Plan: Fluids: HLIV Electrolytes: Monitoring and will replete as needed Nutrition: Regular diet per surgery DVT prophylaxis: Heparin 5000 units every 8 hours (9) Metabolic acidosis Status: Resolved Plan: Patient presented with normal anion gap metabolic acidosis suspected to be hyperchloremic metabolic acidosis due to loss from excessive ostomy output. -Status post ileostomy takedown on 01/20 -Metabolic derangements have improved (10) UTI (urinary tract infection) Status: Resolved Plan: Urine micro growing group D enterococcus and yeast on repeat urine culture -Yeast Kayla krusei intrinsically resistant to Fluconazole - most likely contaminant -DC ampicillin 1 g every 12h IV, patient has received 4 doses (Castro Smiley MD R2) Castro Smiley MD R2 Feb 03, 2017 10:41 Ana Solomon MD Feb 04, 2017 16:28
[2017-02-03] MEDS: valACYclovir HCL 500 MG TAB PO SCH ×2 (15:30→22:06)
[2017-02-03] MEDS: PANTOPRAZOLE SODIUM 40 MG VIAL IV PUSH SCH (17:49)
--- NOTE | 2017-02-03 17:56 | HHI.PR ---
Subjective Remarks C/R Surg - POD afebrile, VSS +BM/flatus UO good benito PO Objective - Vital Signs Date Time Temp Pulse Resp B/P Pulse Ox O2 Delivery O2 Flow Rate FiO2 02/03/17 16:00 98.2 73 16 92/55 96 Result Diagram: 02/03/1760502/03/17605 Objective Remarks PE alert Abd - soft, non-tender, min tympany, A/P Assessment and Plan Imp: OOB PT reg diet restart PO pain meds dc plans Steven King MD Feb 03, 2017 17:56
[2017-02-03] MEDS: traZODone HCL 100 MG TAB PO SCH (22:06)
[2017-02-04] VITALS (10 sets, daily range): BP systolic 70–102; BP diastolic 42–62; PULSE 74–94; RESP 12–18; TEMP 96.3–98.2; O2SAT 95–99
[2017-02-04] MEDS: oxyCODONE/ACETAMINOPHEN 5 MG/325 MG TAB PO PRN ×4 (02:38→14:47)
[2017-02-04] MEDS: valACYclovir HCL 500 MG TAB PO SCH ×3 (06:31→22:44)
[2017-02-04 06:54] LABS: AUTOMATED NEUTROPHIL # 4.6 TH/MM3 (1.8-7.7); BASOPHIL # 0.1 TH/MM3 (0-0.2); BASOPHIL % 0.7 % (0.0-2.0); EOSINOPHIL # 0.1 TH/MM3 (0-0.4); EOSINOPHIL % 1.3 % (0.0-4.0); HEMATOCRIT 30.3 % (35.0-46.0); HEMO FLAGS DIFF FINAL; LYMPH % 29.8 % (9.0-44.0); LYMPHOCYTE # 2.2 TH/MM3 (1.0-4.8); MEAN CELL VOLUME 94.2 FL (80.0-100.0); MEAN CORPUSCULAR HEMOGLOBIN 30.9 PG (27.0-34.0); MEAN CORPUSCULAR HGB CONC 32.8 % (32.0-36.0); MONO % 7.3 % (0.0-8.0); NEUT % 60.9 % (16.0-70.0); PLATELET COUNT 220 TH/MM3 (150-450); RED BLOOD COUNT 3.22 MIL/MM3 (4.00-5.30); RED CELL DISTRIBUTION WIDTH 15.4 % (11.6-17.2); WHITE BLOOD COUNT 7.5 TH/MM3 (4.0-11.0)
[2017-02-04 07:21] LABS: ALT (GPT) 8 U/L (10-53); ANION GAP 10 MEQ/L (5-15); AST (GOT) 4 U/L (15-37); BICARBONATE 21.6 MEQ/L (21.0-32.0); BLOOD UREA NITROGEN 18 MG/DL (7-18); CHLORIDE 108 MEQ/L (98-107); GLOMERULAR FILTRATION RATE 39 ML/MIN (>89); POTASSIUM 4.4 MEQ/L (3.5-5.1); SODIUM (NA) 140 MEQ/L (136-145)
[2017-02-04 07:23] LABS: ALKALINE PHOSPHATASE 75 U/L (45-117); TOTAL BILIRUBIN ADULT 0.2 MG/DL (0.2-1.0)
[2017-02-04] MEDS: amLODIPine BESYLATE 5 MG TAB PO SCH (09:00)
--- NOTE | 2017-02-04 09:40 | HHI.FPPN ---
Subjective Remarks Ms Rogers complains of right abdominal pain and right hip pain that radiates down the back of her thigh, which she says is very similar to when she has sciatic pain. The pain was a little bit better after she had her pain medication. [facility] all the information for her discharge. (Arlin Gillespie MD R1) Objective Vitals Vital Signs Date Time Temp Pulse Resp B/P Pulse Ox O2 Delivery O2 Flow Rate FiO2 02/04/17 08:12 97.5 76 15 82/51 95 02/04/17 06:20 102/59 02/04/17 04:00 97.4 84 18 84/50 95 02/04/17 00:00 97.4 74 18 97/56 96 02/03/17 20:00 97.7 76 18 95/54 96 02/03/17 16:00 98.2 73 16 92/55 96 02/03/17 12:01 96.8 65 17 98/64 96 I/O 02/03/17 02/03/17 02/03/17 02/04/17 02/04/17 02/04/17 07:00 15:00 23:00 07:00 15:00 23:00 Intake Total 720 ml 600 ml 240 ml Output Total 650 ml 1200 ml 400 ml 500 ml Balance -650 ml -480 ml 200 ml -260 ml Intake Oral 720 ml 600 ml 240 ml Output Urine Total 650 ml 1200 ml 400 ml 500 ml # Bowel Movements 0 1 1 (Arlin Gillespie MD R1) Result Diagram: 02/04/17 0630 02/04/17 0630 Objective Remarks GENERAL: Pale-appearing, thin. SKIN: Skin intact. Cool and dry HEAD: Normocephalic, atraumatic EYES: Pupils equal round and reactive. Extraocular motions intact. No scleral icterus. No injection or drainage ENT: Mucous membranes moist CARDIOVASCULAR: Faint heart sounds, regular rate and rhythm RESPIRATORY: CTAB. Breath sounds equal bilaterally but poor effort. No wheezes, rales, or rhonchi GASTROINTESTINAL: Positive bowel sounds. Tender to palpation in the right quadrant and central abdomen, which is different from the previous day's exam. Abdominal incision healing well, no binder. NEUROLOGICAL: Awake and alert. Cranial nerves II through XII grossly intact. Motor and sensory grossly within normal limits. Normal speech (Arlin Gillespie MD R1) A/P Assessment and Plan Ms. Rogers is a pleasant 66-year-old female, that presented with 6 days of abdominal pain, nausea, and persistent vomiting. She had a history of diverticulitis with temporary ileostomy and was known to the colorectal surgery team. She presented with high output ileostomy and metabolic acidosis. Currently, she is status post exploratory laparotomy with segmental small bowel resection and closure of ileostomy. Discharge Planning Discharge pending clearance by colorectal surgery. She'll need follow-up with nephrology and urology. PT recommends PT at rehabilitation. Patient has been accepted at [facility] for long-term care. (Arlin Gillespie MD R1) Attending Attestation Patient seen and examined. Case reviewed and discussed Agree with plan of care as discussed with me and documented in the resident note. (Ana Solomon MD) Problem List: (1) History of diverticulitis Status: Chronic Plan: Patient has history of diverticulitis. She developed high-output ileostomy. She is now status post exploratory laparotomy with segmental small bowel resection and closure of ileostomy. Postoperative day #12. Diet advanced per surgery Colorectal surgery following Small bowel series normal Pain management: Percocet 2 tab by mouth every 4 hours pain 6-10, holding morphine unless cleared by Colorectal surgery given patient's recent ileus that required NG tube placement Bowel regimen: Reglan 10 mg 3 times a day before meals, Carafate 1 g by mouth every 8 hours, Zofran for nausea, docusate 1 tab by mouth twice a day Out of bed to chair and physical therapy (2) Acute on chronic renal insufficiency Status: Resolved Plan: Nephrology consulted, appreciate their recommendations Creatinine improved to baseline -Patient is to follow-up with nephrology as an outpatient. An outpatient recommended Litholink study as medullary sponge kidney can also be associated with hypocitraturia, hyperoxaluria. (3) COPD (chronic obstructive pulmonary disease) Status: Chronic Plan: -Albuterol 2.5 mg inhaler q 2 hr prn -Duonebs every 4 hours when necessary for shortness of breath or wheezing (4) Physical deconditioning Status: Acute Plan: -Physical therapy consulted to assist with out of bed and exercises -Physical therapy recommends discharge to rehabilitation facility (5) Osteoporosis Status: Chronic Plan: -Hold bisphosphonate therapy at this time -Will restart once tolerating by mouth therapy and nausea has improved -Fall precautions in place (6) Depression Status: Chronic Plan: Resume home psychotropic meds as follows: -Bupropion 100 mg tablets twice a day -Prozac 10 mg daily -Trazodone 100 mg daily at bedtime (7) HTN (hypertension) Status: Chronic Plan: Home medication: Amlodipine 10 mg daily Currently on amlodipine 5 mg daily 2/2 hypotension (8) Shingles rash Status: Acute Plan: -Continue valacyclovir 100 mg by mouth every 8 hours, 2 doses received so far (9) FEN/ppx Status: Chronic Plan: Fluids: HLIV Electrolytes: Monitoring and will replete as needed Nutrition: Regular diet per surgery DVT prophylaxis: Heparin 5000 units every 8 hours (10) Metabolic acidosis Status: Resolved Plan: Patient presented with normal anion gap metabolic acidosis suspected to be hyperchloremic metabolic acidosis due to loss from excessive ostomy output. -Status post ileostomy takedown on 01/20 -Metabolic derangements have improved (11) UTI (urinary tract infection) Status: Resolved Plan: Urine micro growing group D enterococcus and yeast on repeat urine culture -Yeast Kayla krusei intrinsically resistant to Fluconazole - most likely contaminant -DC ampicillin 1 g every 12h IV, patient has received 4 doses (Arlin Gillespie MD R1) Arlin Gillespie MD R1 Feb 04, 2017 09:40 Ana Solomon MD Feb 04, 2017 16:32
--- NOTE | 2017-02-04 10:34 | HHI.DCPOC ---
Discharge Care Plan Diagnosis: (1) Diverticulitis (2) Anemia (3) HTN (hypertension) (4) Hyperchloremic metabolic acidosis (5) Nephrocalcinosis (6) UTI (urinary tract infection) Goals to Promote Your Health * To prevent worsening of your condition and complications * To maintain your health at the optimal level Directions to Meet Your Goals Take your medications as prescribed Follow your dietary instruction Follow activity as directed Keep your appointments as scheduled Take your immunizations and boosters as scheduled If your symptoms worsen call your PCP, if no PCP go to Urgent Care Center or Emergency Room Smoking is Dangerous to Your Health. Avoid second hand smoke Call the 24-hour hour crisis hotline for domestic abuse at Arlin Gillespie MD R1 Feb 04, 2017 10:34
[2017-02-04] MEDS: HEPARIN SODIUM - SQ 10,000 UNITS/ML VIAL SQ SCH ×2 (10:41→20:19)
[2017-02-04] MEDS: buPROPion HCL 100 MG TAB PO SCH ×2 (10:41→20:17)
[2017-02-04] MEDS: FLUoxetine HCL 10 MG CAP PO SCH (10:43)
[2017-02-04] MEDS: POTASSIUM CHLORIDE 10 MEQ CONTROLLED RELEASE TAB PO SCH (11:36)
[2017-02-04] MEDS: SUCRALFATE 1 GM/10 ML CUP PO SCH ×2 (15:20→20:17)
--- NOTE | 2017-02-04 15:44 | RADRPT ---
EXAM DATE/TIME: 02/04/2017 14:59 [facility] COMPARISON: No previous studies available for comparison. INDICATIONS : Painful abdomen. MEDICAL HISTORY : Hypertension. Deep venous thrombosis. SURGICAL HISTORY : Appendectomy. Colostomy. Hysterectomy. ENCOUNTER: Initial ACUITY: 4 - 6 days PAIN SCORE: 8/10 LOCATION: Bilateral abdomen FINDINGS: Supine view of the abdomen was performed. The abdominal bowel gas pattern is normal. No abnormal ma sses, calcifications, or organomegaly is seen. The osseous structures are unremarkable. Scattered pill fragments are seen. There is an anastomosis in the right mid to upper abdomen and at the rectosigmoid junction again seen . Cholecystectomy clips are present. Severe degenerative disc disease with endplate changes again noted at L3/L4 and L4/L5. There is medul margie calcinosis of both kidneys. CONCLUSION: Fairly benign-appearing abdomen. No evidence of obstruction or other acute process. Chronic findings as above. Nabeel Padgett MD on February 04, 2017 at 15:39 Board Certified Radiologist. This report was verified electronically.
[2017-02-04] MEDS ORDERED: SODIUM CHLORID 0.9% 500 ML INJ 500 ML IV ONE (17:45)
[2017-02-04] MEDS: SODIUM CHLORIDE 0.9% FLUSH 5 ML FLUSH IVF SCH ×2 (18:14→22:00)
[2017-02-04] MEDS: PANTOPRAZOLE SODIUM 40 MG VIAL IV PUSH SCH (18:15)
[2017-02-04] MEDS ORDERED: DIATRIZOATE MEGLUM/DIATRIZOATE SOD 9 ML CUP PO ONE (19:15)
--- NOTE | 2017-02-04 19:21 | HHI.PR ---
Addendum to Inpatient Note Addendum Reason: Additional Documentation Additional Information Responded to [facility] due to hypotension (approx 71/53). Patient asymptomatic; no lightheadedness, CP, SOB. Endorses abdominal pain which has worsened over last day and a half. Exam Gen: Pale-appearing elderly white female sitting up in bed appearing weak but in NAD Resp: CTAB CV: NRRR, normal S1/S2, no murmur Abd: Soft, mildly distended, diffusely tender to palpation, worse on mid-left abdomen. Tympanic to perscussion but tender. Neuro: Awake, alert. Assessment and Plan 66 y/o female with h/o diverticulitis POD 11 from reversal of ileostomy presenting with hypotension and worsening abdominal pain. * NS bolus 500 cc; BP corrected to approx 90/55 jail through giving bolus * Stat lactic acid * CT abdomen/pelvis with IV contrast to r/o abscess, other life-threatening abdominal pathology * If lactic acid severely elevated or CT findings abnormal, consider calling colorectal surgery (following patient) as indicated or ordering CTA abdominal aorta to r/o mesenteric ischemia dw Dr. Lennie Rodriguez, Dr. Stevie Llanes (Chip Sorenson MD R1) Chip Sorenson MD R1 Feb 04, 2017 19:21 Ana Solomon MD Feb 06, 2017 13:21
[2017-02-04] MEDS: traZODone HCL 100 MG TAB PO SCH (20:17)
[2017-02-04] MEDS: oxyCODONE/ACETAMINOPHEN 10 MG/325 MG TAB PO PRN (22:58)
[2017-02-05] VITALS (10 sets, daily range): BP systolic 72–93; BP diastolic 42–60; PULSE 78–96; RESP 14–18; TEMP 96.4–98.5; O2SAT 95–98
[2017-02-05] MEDS ORDERED: IOHEXOL 350 MG/ML 10 ML VIAL (for RAD DIAG) IV ONE (00:54)
--- NOTE | 2017-02-05 01:21 | RADRPT ---
EXAM DATE/TIME: 02/05/2017 00:50 [facility] COMPARISON: CT ABDOMEN & PELVIS W CONTRAST, August 05, 2016, 17:21. INDICATIONS : Abdomen pain past week. IV CONTRAST: 80 cc Omnipaque 350 (iohexol) IV ORAL CONTRAST: Prescribed oral contrast ingested. RADIATION DOSE: 4.50 CTDIvol (mGy) MEDICAL HISTORY : Hypertension. Renal failure, chronic. Diverticulitis. SURGICAL HISTORY : Appendectomy. Colostomy.Hysterectomy. ENCOUNTER: Initial ACUITY: 1 week PAIN SCALE: 5/10 LOCATION: Bilateral abdomen TECHNIQUE: Volumetric scanning of the abdomen and pelvis was performed. Using automated exposure control and ad justment of the mA and/or kV according to patient size, radiation dose was kept as low as reasonably achievable to obtain optimal diagnostic quality images. FINDINGS: LOWER LUNGS: The visualized lower lungs are clear. LIVER: Stable cholelithiasis and some are low density lesion in the left hepatic lobe is overtly benign and may represent a cyst or hemangioma. There is no dilation of the biliary tree. Patient is status post cholecystectomy. SPLEEN: Normal size without lesion. PANCREAS: Within normal limits. KIDNEYS: Left kidney is atrophic but stable. There is bilateral nephrocalcinosis. Renal cortical cysts are lazaro ntified bilaterally. ADRENAL GLANDS: Within normal limits. VASCULAR: There is no aortic aneurysm. BOWEL/MESENTERY: There was a prior colostomy in the right abdomen. This has been taken down and there is some air iden tified in the regional soft tissues possibly representing a recent intervention. Adjacent to the surg erized bowel, and a 3 cm somewhat hyperdense collection. Bowel is nondilated. Ring of surgical staple s near the rectum are characteristic of prior surgery in this location as well. ABDOMINAL WALL: Within normal limits. RETROPERITONEUM: There is no lymphadenopathy. BLADDER: No wall thickening or mass. REPRODUCTIVE: Patient is status post hysterectomy. INGUINAL: There is no lymphadenopathy or hernia. MUSCULOSKELETAL: Dextroscoliosis of the thoracolumbar spine. CONCLUSION: 1. Previously identified right abdominal colostomy has been taken down. Note of air in the regional s ubcutaneous soft tissues may represent a recent intervention. 2. In addition, there is a 3 cm somewhat hyperdense collection adjacent to the surgerized bowel. Find ings are nonspecific on CT and can represent a postoperative hematoma or small abscess. 3. Stable atrophic changes in the left kidney with benign bilateral renal cortical cysts. Stable neph rocalcinosis which has a broad differential including medullary sponge kidney. 4. Dextrorotoscoliosis of the thoracolumbar spine witth associated degenerative changes. Matt Holloway MD on February 05, 2017 at 1:06 Board Certified Radiologist. This report was verified electronically.
[2017-02-05] MEDS: oxyCODONE/ACETAMINOPHEN 5 MG/325 MG TAB PO PRN (03:02)
[2017-02-05] MEDS: valACYclovir HCL 500 MG TAB PO SCH ×3 (06:09→22:18)
--- NOTE | 2017-02-05 07:07 | HHI.FPPN ---
Subjective Remarks Ms Rogers continues to have right quadrant abdominal pain that she rates a 7/10 and 10/10 back pain. Her systolic blood pressure has fluctuated between the high 80's and 90's. She has not had any vomiting episodes and denies dizziness. (Arlin Gillespie MD R1) Objective Vitals Vital Signs Date Time Temp Pulse Resp B/P Pulse Ox O2 Delivery O2 Flow Rate FiO2 02/05/17 06:53 96.7 82 18 88/60 98 02/05/17 04:08 20 02/05/17 00:00 96.9 78 18 88/56 96 02/05/17 00:00 20 02/04/17 22:53 94/60 02/04/17 20:00 98.2 86 18 90/55 99 02/04/17 17:11 97.8 94 12 70/42 96 02/04/17 16:00 97.0 80 16 80/50 95 02/04/17 14:30 88 16 101/62 96 02/04/17 12:00 96.3 87 15 82/51 96 Manual Cuff/Auscultation 02/04/17 08:12 97.5 76 15 82/51 95 I/O 02/04/17 02/04/17 02/04/17 02/05/17 02/05/17 02/05/17 07:00 15:00 23:00 07:00 15:00 23:00 Intake Total 240 ml 360 ml 1132 ml 782 ml Output Total 500 ml 1100 ml 1900 ml Balance -260 ml 360 ml 32 ml -1118 ml Intake Oral 240 ml 360 ml 1132 ml 782 ml Output Urine Total 500 ml 1100 ml 850 ml Stool Total 1050 ml # Voids 2 2 2 # Bowel Movements 1 4 4 (Arlin Gillespie MD R1) Result Diagram: 02/04/17 0630 02/04/17 0630 Imaging Last Impressions Abdomen/Pelvis CT 02/05/17 0000 Signed Impressions: Service Date/Time: January 00:50 - CONCLUSION: 1. Previously identified right abdominal colostomy has been taken down. Note of air in the regional subcutaneous soft tissues may represent a recent intervention. 2. In addition, there is a 3 cm somewhat hyperdense collection adjacent to the surgerized bowel. Findings are nonspecific on CT and can represent a postoperative hematoma or small abscess. 3. Stable atrophic changes in the left kidney with benign bilateral renal cortical cysts. Stable nephrocalcinosis which has a broad differential including medullary sponge kidney. 4. Dextrorotoscoliosis of the thoracolumbar spine witth associated degenerative changes. Matt Holloway MD Abdomen X-Ray 02/04/17 0000 Signed Impressions: Service Date/Time: Saturday, February 04, 2017 14:59 - CONCLUSION: Fairly benign-appearing abdomen. No evidence of obstruction or other acute process. Chronic findings as above. Nabeel Padgett MD Chest X-Ray 01/29/17 0000 Signed Impressions: Service Date/Time: January 11:41 - CONCLUSION: 1. PICC in good position. Ervin Lloyd MD Upper GI Series 01/27/17 0000 Signed Impressions: Service Date/Time: Friday, January 27, 2017 09:35 - CONCLUSION: Unremarkable upper gastrointestinal examination limited due to patient mobility and difficulty swallowing large amounts of Gastrografin. Jonas Terry MD Renal Ultrasound 01/18/17 0000 Signed Impressions: Service Date/Time: Wednesday, January 18, 2017 18:05 - CONCLUSION: 1. Extensive medullary nephrocalcinosis. Atrophic kidneys. No hydronephrosis. Jerald Lau MD Head CT 01/17/172222 Signed Impressions: Service Date/Time: Tuesday, January 17, 2017 23:21 - CONCLUSION: No evidence of acute intracranial pathology. No masses are identified. Sushant Woods MD Objective Remarks GENERAL: Pale-appearing, thin. SKIN: Skin intact. Cool and dry HEAD: Normocephalic, atraumatic EYES: Pupils equal round and reactive. Extraocular motions intact. No scleral icterus. No injection or drainage ENT: Mucous membranes moist CARDIOVASCULAR: Faint heart sounds, regular rate and rhythm RESPIRATORY: CTAB. Breath sounds equal bilaterally but poor effort. No wheezes, rales, or rhonchi GASTROINTESTINAL: Positive bowel sounds. Tender to palpation in the right quadrant and central abdomen. Abdominal incision looks well healed. NEUROLOGICAL: Awake and alert. Cranial nerves II through XII grossly intact. Motor and sensory grossly within normal limits. Normal speech (Eko,Arlin Gunn MD R1) A/P Assessment and Plan Ms. Rogers is a pleasant 66-year-old female, that presented with 6 days of abdominal pain, nausea, and persistent vomiting. She had a history of diverticulitis with temporary ileostomy and was known to the colorectal surgery team. She presented with high output ileostomy and metabolic acidosis. Currently, she is status post exploratory laparotomy with segmental small bowel resection and closure of ileostomy. She developed right quadrant abdominal pain on 02/04 and hypotension with systolic BP down to 71. A HaliCAT was called and pt received a 500L NS bolus. A CT scan of her abdomen was performed which shows a 3cm hyperdense collection adjacent to surgerized abdomen that may represent a hematoma or abscess. Contacted Dr. King who reviewed the images - most likely a hematoma. Discharge Planning Discharge pending improvement in abdominal pain. She'll need follow-up with nephrology and urology. PT recommends PT at rehabilitation. Patient has been accepted at [facility] for long-term care. (Arlin Gillespie MD R1) Attending Attestation Patient seen and examined. Case reviewed and discussed Agree with plan of care as discussed with me and documented in the resident note. CT reviewed. Abd pain stable. prbcs ordered appreciate CRS input Monitor BP and hold pain medications pending BP parameters (Ana Solomon MD) Problem List: (1) Abdominal hematoma Status: Acute Plan: -Seen on CT abdomen/pelvis on 02/04 -Hemoglobin dropped from 9.9 to 8.5 within 24 hours -Dr. King on board -Transfused 2 units PRBC -Monitor H&H after transfusion -S/P 1L and 500ml bolus for hypotension (2) History of diverticulitis Status: Chronic Plan: Patient has history of diverticulitis. She developed high-output ileostomy. She is now status post exploratory laparotomy with segmental small bowel resection and closure of ileostomy. Postoperative day #13 Diet advanced per surgery Colorectal surgery following Pain management: Percocet 2 tab by mouth every 4 hours pain 6-10, hold for SBP < 90 and/or DBP <60 Bowel regimen: Reglan 10 mg 3 times a day before meals, Carafate 1 g by mouth every 8 hours, Zofran for nausea, docusate 1 tab by mouth twice a day Out of bed to chair and physical therapy (3) Acute on chronic renal insufficiency Status: Resolved Plan: Nephrology consulted, appreciate their recommendations Creatinine improved to baseline -Patient is to follow-up with nephrology as an outpatient. An outpatient recommended Litholink study as medullary sponge kidney can also be associated with hypocitraturia, hyperoxaluria. (4) COPD (chronic obstructive pulmonary disease) Status: Chronic Plan: -Albuterol 2.5 mg inhaler q 2 hr prn -Duonebs every 4 hours when necessary for shortness of breath or wheezing (5) Physical deconditioning Status: Acute Plan: -Physical therapy consulted to assist with out of bed and exercises -Physical therapy recommends discharge to rehabilitation facility (6) Osteoporosis Status: Chronic Plan: -Hold bisphosphonate therapy at this time -Will restart once tolerating by mouth therapy and nausea has improved -Fall precautions in place (7) Depression Status: Chronic Plan: Resume home psychotropic meds as follows: -Bupropion 100 mg tablets twice a day -Prozac 10 mg daily -Trazodone 100 mg daily at bedtime (8) HTN (hypertension) Status: Chronic Plan: Home medication: Amlodipine 10 mg daily Currently on amlodipine 5 mg daily 2/2 hypotension -Hold antihypertensive meds for SBP <90 and/or DBP <60 (9) Shingles rash Status: Acute Plan: -Continue valacyclovir 100 mg by mouth every 8 hours, 2 doses received so far (10) FEN/ppx Status: Chronic Plan: Fluids: NS @ 80 ml/hr Electrolytes: Monitoring and will replete as needed Nutrition: Regular diet per surgery DVT prophylaxis: Heparin 5000 units every 8 hours - holding due to abdominal hematoma (11) Metabolic acidosis Status: Resolved Plan: Patient presented with normal anion gap metabolic acidosis suspected to be hyperchloremic metabolic acidosis due to loss from excessive ostomy output. -Status post ileostomy takedown on 01/20 -Metabolic derangements have improved (12) UTI (urinary tract infection) Status: Resolved Plan: Urine micro growing group D enterococcus and yeast on repeat urine culture -Yeast Kayla krusei intrinsically resistant to Fluconazole - most likely contaminant -DC ampicillin 1 g every 12h IV, patient has received 4 doses (Arlin Gillespie MD R1) Arlin Gillespie MD R1 Feb 05, 2017 07:07 Ana Solomon MD Feb 06, 2017 13:20
[2017-02-05] MEDS: SODIUM CHLOR 0.9% 1000 ML INJ 1,000 ML IV SCH ×2 (07:15→22:20)
[2017-02-05] MEDS ORDERED: SODIUM CHLORID 0.9% 500 ML INJ 500 ML IV ONE (07:30)
[2017-02-05 08:33] LABS: AUTOMATED NEUTROPHIL # 2.9 TH/MM3 (1.8-7.7); BASOPHIL # 0.1 TH/MM3 (0-0.2); BASOPHIL % 1.1 % (0.0-2.0); EOSINOPHIL # 0.1 TH/MM3 (0-0.4); EOSINOPHIL % 2.2 % (0.0-4.0); HEMATOCRIT 26.2 % (35.0-46.0); HEMO FLAGS DIFF FINAL; LYMPH % 35.3 % (9.0-44.0); MEAN CELL VOLUME 95.1 FL (80.0-100.0); MEAN CORPUSCULAR HEMOGLOBIN 30.9 PG (27.0-34.0); MEAN CORPUSCULAR HGB CONC 32.5 % (32.0-36.0); MONO % 9.1 % (0.0-8.0); NEUT % 52.3 % (16.0-70.0); PLATELET COUNT 223 TH/MM3 (150-450); RED BLOOD COUNT 2.76 MIL/MM3 (4.00-5.30); RED CELL DISTRIBUTION WIDTH 15.8 % (11.6-17.2); WHITE BLOOD COUNT 5.6 TH/MM3 (4.0-11.0)
[2017-02-05 08:59] LABS: CALCIUM-PROTEIN CORRECTED 8.8 MG/DL (8.5-10.1); POTASSIUM 4.1 MEQ/L (3.5-5.1); TOTAL BILIRUBIN ADULT 0.1 MG/DL (0.2-1.0)
[2017-02-05] MEDS: SODIUM CHLORIDE 0.9% FLUSH 5 ML FLUSH IVF SCH ×2 (09:00→22:19)
[2017-02-05] MEDS: FLUoxetine HCL 10 MG CAP PO SCH (09:22)
[2017-02-05] MEDS: POTASSIUM CHLORIDE 10 MEQ CONTROLLED RELEASE TAB PO SCH (09:22)
[2017-02-05] MEDS: buPROPion HCL 100 MG TAB PO SCH ×2 (09:22→22:19)
[2017-02-05] MEDS: SUCRALFATE 1 GM/10 ML CUP PO SCH ×2 (10:23→22:18)
[2017-02-05] MEDS ORDERED: SODIUM CHLOR 0.9% 250 ML INJ 250 ML IV ONE ×2 (11:15→21:00)
--- NOTE | 2017-02-05 13:17 | HHI.PR ---
Subjective Remarks C/R Surg - POD afebrile, VSS - Bp low +BM/flatus UO good benito PO c/o pain rt side Objective - Vital Signs Date Time Temp Pulse Resp B/P Pulse Ox O2 Delivery O2 Flow Rate FiO2 02/05/17 11:00 96.4 96 14 88/52 96 Result Diagram: 02/05/1781902/05/17 0820 Objective Remarks PE alert Abd - soft, non-tender, min tympany, A/P Assessment and Plan Imp: OOB PT reg diet restart PO pain meds reviewed CT - no contrast in area of concern, poss hematoma, cont to watch tx PRBC Steven King MD Feb 05, 2017 13:17
[2017-02-05] MEDS ORDERED: SODIUM CHLOR 0.9% 1000 ML INJ 1,000 ML IV ONE (15:00)
[2017-02-05 15:09] LABS: HEMATOCRIT 28.7 % (35.0-46.0); REVIEW FLAG FINAL
[2017-02-05] MEDS: PANTOPRAZOLE SODIUM 40 MG VIAL IV PUSH SCH (16:27)
[2017-02-05 19:41] LABS: HEMATOCRIT 24.1 % (35.0-46.0); REVIEW FLAG FINAL
[2017-02-05] MEDS ORDERED: ACETAMINOPHEN 325 MG TAB PO PRN (21:00)
[2017-02-05] MEDS ORDERED: FUROSEMIDE 20 MG/2 ML VIAL IV ONE (21:00)
[2017-02-05 22:13] LABS: REVIEW FLAG FINAL
--- NOTE | 2017-02-05 22:18 | PD.CONS ---
[facility] Service Critical Care Medicine Consult Requested By [facility] Reason for Consult Hypotension Primary Care Physician Non-Staff History of Present Illness Blood pressure 80 - low 90s today with some recording in the 70s. She is now over two weeks following an uneventful ileostomy takedown, placed during a distant emergency colorectal procedure. SBP 86 now. She is warm and well perfused. No tachycardia, fever or leukocytosis. Urine output good. CT reviewed and patient examined. Seen and CT reviewed by Dr. King earlier today as well, exam and CT felt to be benign. She is not in shock and I see no evidence of sepsis. At this point she does not require transfer to the ICU. Blood transfusion has been ordered by Primary Team. I have instructed the floor nursing staff to call me anytime tonight with any ongoing concerns, particularly recurrent hypotension. Discussed with Dr. Smiley from [facility] Service. Thanks for asking us to look at her. Humberto Jimenez m.D. Foreign Language Stenographer Past Family Social History Allergies: Coded Allergies: *MDRO Multi-Drug Resistant Organism (Verified Adverse Reaction, Unknown, ) MRSA PCR screen (nares) POSITIVE - 07/26/16 Physical Exam Vital Signs Vital Signs Date Time Temp Pulse Resp B/P Pulse Ox O2 Delivery O2 Flow Rate FiO2 02/05/17 21:07 97.2 86 17 72/42 97 82/52 02/05/17 16:00 98.5 86 18 93/57 95 02/05/17 15:00 97.3 89 16 86/59 02/05/17 15:00 97.3 89 16 93/57 96 02/05/17 13:00 97.1 84 15 76/46 02/05/17 12:00 97.1 82 18 76/46 02/05/17 11:00 96.4 96 14 88/52 96 02/05/17 08:31 97.8 84 18 80/52 95 02/05/17 06:53 96.7 82 18 88/60 98 02/05/17 04:08 20 02/05/17 00:00 96.9 78 18 88/56 96 02/05/17 00:00 20 02/04/17 22:53 94/60 Laboratory Laboratory Tests Test 02/05/17 02/05/17 02/05/17 08:20 14:45 19:12 White Blood Count 5.6 Red Blood Count 2.76 Hemoglobin 8.5 9.3 7.8 Hematocrit 26.2 28.7 24.1 Mean Corpuscular Volume 95.1 Mean Corpuscular Hemoglobin 30.9 Mean Corpuscular Hemoglobin 32.5 Concent Red Cell Distribution Width 15.8 Platelet Count 223 Mean Platelet Volume 7.7 Neutrophils (%) (Auto) 52.3 Lymphocytes (%) (Auto) 35.3 Monocytes (%) (Auto) 9.1 Eosinophils (%) (Auto) 2.2 Basophils (%) (Auto) 1.1 Neutrophils # (Auto) 2.9 Lymphocytes # (Auto) 2.0 Monocytes # (Auto) 0.5 Eosinophils # (Auto) 0.1 Basophils # (Auto) 0.1 CBC Comment DIFF FINAL Differential Comment Sodium Level 141 Potassium Level 4.1 Chloride Level 109 Carbon Dioxide Level 22.0 Anion Gap 10 Blood Urea Nitrogen 18 Creatinine 1.25 Estimat Glomerular Filtration 43 Rate Random Glucose 75 Calcium Level 7.3 Protein Corrected Calcium 8.8 Total Bilirubin 0.1 Aspartate Amino Transf 3 (AST/SGOT) Alanine Aminotransferase 7 (ALT/SGPT) Alkaline Phosphatase 71 Total Protein 4.5 Albumin 2.1 Result Diagram: 02/05/17191102/05/17 0820 Issa Jimenez MD Feb 05, 2017 22:18
[2017-02-05] MEDS: traZODone HCL 100 MG TAB PO SCH (22:19)
--- NOTE | 2017-02-05 22:32 | HHI.FPPN ---
Addendum to progress note ADDENDUM Reason for addendum: Additonal documentation Additional information Reported to the patient's bedside because of repeated low blood pressures and H/ H of 7.8. Subjective: Patient states that her blood pressure normally "runs low." She continues to have abdominal pain which was referenced in the progress note. Her pain is not changed. She is not short of breath. No fever or chills. She states she is doing fine and she states she does not want to be transferred from this room. Objective: Vitals: 97.2, heart rate 86, respirations 17, 72/42-86/60, 97% oxygen Objective: No acute distress. Awake alert and oriented 3. Resting comfortably CARDIOVASCULAR: Faint heart sounds, regular rate and rhythm RESPIRATORY: CTAB. Breath sounds equal bilaterally but poor effort. No wheezes, rales, or rhonchi GASTROINTESTINAL: Positive bowel sounds. Tender to palpation in the right quadrant and central abdomen; unchanged from earlier exam. Abdominal incision looks well healed. Assessment/plan: 66-year-old female postop day #13; the patient is persistently hypotensive with low H/H at 7.8 Patient remains hypotensive; concern is for shock Case discussed with bridge crane operator Dr. Jimenez; he will see the patient 2 units of blood were ordered earlier this morning but have yet to be transfused I confirmed with the nursing staff we need the blood to be transfused as ordered. Low threshold to transfer to the ICU per Dr. Jimenez recommendations in consultation (Castro Smiley MD R2) Castro Smiley MD R2 Feb 05, 2017 22:32 Ana Solomon MD Feb 06, 2017 13:21
[2017-02-06] VITALS (13 sets, daily range): BP systolic 70–99; BP diastolic 41–64; PULSE 76–84; RESP 16–20; TEMP 96.6–99.1; O2SAT 94–98
[2017-02-06] MEDS: valACYclovir HCL 500 MG TAB PO SCH ×3 (06:20→22:26)
[2017-02-06] MEDS: oxyCODONE/ACETAMINOPHEN 5 MG/325 MG TAB PO PRN ×4 (06:26→19:55)
[2017-02-06] MEDS: SUCRALFATE 1 GM/10 ML CUP PO SCH ×2 (09:35→22:26)
[2017-02-06] MEDS: FLUoxetine HCL 10 MG CAP PO SCH (09:36)
[2017-02-06] MEDS: buPROPion HCL 100 MG TAB PO SCH ×2 (09:36→21:00)
[2017-02-06] MEDS: POTASSIUM CHLORIDE 10 MEQ CONTROLLED RELEASE TAB PO SCH (09:36)
[2017-02-06] MEDS: SODIUM CHLORIDE 0.9% FLUSH 5 ML FLUSH IVF SCH ×2 (09:38→21:00)
[2017-02-06 10:19] LABS: BASOPHIL # 0.1 TH/MM3 (0-0.2); BASOPHIL % 1.1 % (0.0-2.0); EOSINOPHIL # 0.2 TH/MM3 (0-0.4); EOSINOPHIL % 3.9 % (0.0-4.0); HEMATOCRIT 34.2 % (35.0-46.0); HEMO FLAGS DIFF FINAL; LYMPH % 36.2 % (9.0-44.0); LYMPHOCYTE # 2.2 TH/MM3 (1.0-4.8); MEAN CELL VOLUME 93.6 FL (80.0-100.0); MEAN CORPUSCULAR HEMOGLOBIN 30.8 PG (27.0-34.0); MEAN CORPUSCULAR HGB CONC 32.9 % (32.0-36.0); MONO % 10.3 % (0.0-8.0); NEUT % 48.5 % (16.0-70.0); PLATELET COUNT 267 TH/MM3 (150-450); RED BLOOD COUNT 3.65 MIL/MM3 (4.00-5.30); WHITE BLOOD COUNT 6.1 TH/MM3 (4.0-11.0)
[2017-02-06 10:56] LABS: ALKALINE PHOSPHATASE 90 U/L (45-117); ALT (GPT) 11 U/L (10-53); ANION GAP 10 MEQ/L (5-15); AST (GOT) 6 U/L (15-37); BICARBONATE 22.8 MEQ/L (21.0-32.0); BLOOD UREA NITROGEN 17 MG/DL (7-18); CHLORIDE 110 MEQ/L (98-107); GLOMERULAR FILTRATION RATE 33 ML/MIN (>89); POTASSIUM 4.3 MEQ/L (3.5-5.1); SODIUM (NA) 143 MEQ/L (136-145); TOTAL BILIRUBIN ADULT 0.2 MG/DL (0.2-1.0)
--- NOTE | 2017-02-06 13:33 | HHI.FPPN ---
Subjective Remarks Patient continues to be hypotensive with a low pressure of 78/46 this morning. She is asymptomatic and denies dizziness. She received 2 units packed red blood cells last night. Per patient, she is feeling much better now. She reports the pain medication significantly helped her abdominal pain. (Sumi Gentile MD R3) Objective Vitals Vital Signs Date Time Temp Pulse Resp B/P Pulse Ox O2 Delivery O2 Flow Rate FiO2 02/06/17 12:27 96.6 78 18 99/56 97 02/06/17 09:06 95 02/06/17 08:00 97.4 76 18 85/51 94 02/06/17 05:58 98.2 79 20 92/62 98 02/06/17 05:42 98.7 82 18 92/64 95 02/06/17 05:27 98.6 79 18 76/48 95 02/06/17 04:42 98.0 80 17 79/45 97 78/46 76/50 02/06/17 02:03 98.6 78 18 90/62 95 02/06/17 01:47 99.1 79 18 86/58 95 02/06/17 01:30 98.2 81 18 88/58 94 02/06/17 00:32 97.6 84 17 70/41 97 86/54 02/05/17 21:59 86/60 02/05/17 21:07 97.2 86 17 72/42 97 82/52 02/05/17 16:00 98.5 86 18 93/57 95 02/05/17 15:00 97.3 89 16 86/59 02/05/17 15:00 97.3 89 16 93/57 96 I/O 02/05/17 02/05/17 02/05/17 02/06/17 02/06/17 02/06/17 07:00 15:00 23:00 07:00 15:00 23:00 Intake Total 782 ml 840 ml 240 ml 712 ml Output Total 1900 ml 400 ml 1000 ml 1350 ml Balance -1118 ml 440 ml -760 ml -638 ml Intake Oral 782 ml 840 ml 240 ml 360 ml IV Total 102 ml Packed Cells 250 ml Output Urine Total 850 ml 400 ml 1000 ml 1350 ml Stool Total 1050 ml # Voids 2 4 4 # Bowel Movements 4 3 (Sumi Gentile MD R3) Result Diagram: 02/06/1745 02/06/1745 Objective Remarks GENERAL: Pale-appearing, thin. SKIN: Skin intact. Cool and dry HEAD: Normocephalic, atraumatic EYES: Pupils equal round and reactive. Extraocular motions intact. No scleral icterus. No injection or drainage ENT: Mucous membranes moist CARDIOVASCULAR: Faint heart sounds, regular rate and rhythm RESPIRATORY: CTAB. Breath sounds equal bilaterally but poor effort. No wheezes, rales, or rhonchi GASTROINTESTINAL: Positive bowel sounds. Tender to palpation in the right quadrant and central abdomen, much improved. Abdominal incision looks well healed. NEUROLOGICAL: Awake and alert. Cranial nerves II through XII grossly intact. Motor and sensory grossly within normal limits. Normal speech (Sumi Gentile MD R3) A/P Assessment and Plan Ms. Rogers is a pleasant 66-year-old female, that presented with 6 days of abdominal pain, nausea, and persistent vomiting. She had a history of diverticulitis with temporary ileostomy and was known to the colorectal surgery team. She presented with high output ileostomy and metabolic acidosis. Currently, she is status post exploratory laparotomy with segmental small bowel resection and closure of ileostomy. She developed right quadrant abdominal pain on 02/04 and hypotension with systolic BP down to 71. A HaliCAT was called and pt received a 500L NS bolus. A CT scan of her abdomen was performed which shows a 3cm hyperdense collection adjacent to surgerized abdomen that may represent a hematoma or abscess. Contacted Dr. King who reviewed the images - most likely a hematoma. Patient was transfused 2 units packed red blood cells with appropriate response in hemoglobin and hematocrit. Discharge Planning Discharge pending stabilization of H&H and improved, pain. She'll need follow- up with nephrology and urology. PT recommends PT at rehabilitation. Patient has been accepted at [facility] for [facility]-term care. (Sumi Gentile MD R3) Attending Attestation Patient seen and examined with the resident team. Case reviewed and discussed Agree with plan of care as discussed with me and documented in the resident note. (Ana Solomon MD) Problem List: (1) Anemia Status: Acute Plan: Patient with anemia requiring blood transfusion. Likely secondary to abdominal hematoma however cannot rule out GI bleed as cause. Hemoccult ordered Repeat CT abdomen and pelvis to monitor hematoma Transfuse when necessary (2) Abdominal hematoma Status: Acute Plan: -Seen on CT abdomen/pelvis on 02/04 -Hemoglobin dropped from 9.9 to 8.5 within 24 hours -Dr. King on board -Transfused 2 units PRBC (3) History of diverticulitis Status: Chronic Plan: Patient has history of diverticulitis. She developed high-output ileostomy. She is now status post exploratory laparotomy with segmental small bowel resection and closure of ileostomy. Postoperative day #14 Diet advanced per surgery Colorectal surgery following Pain management: Percocet 2 tab by mouth every 4 hours pain 6-10, hold for SBP < 90 and/or DBP <60 Bowel regimen: Reglan 10 mg 3 times a day before meals, Carafate 1 g by mouth every 8 hours, Zofran for nausea, docusate 1 tab by mouth twice a day Out of bed to chair and physical therapy (4) Acute on chronic renal insufficiency Status: Resolved Plan: Nephrology consulted, appreciate their recommendations Creatinine improved to baseline -Patient is to follow-up with nephrology as an outpatient. An outpatient recommended Litholink study as medullary sponge kidney can also be associated with hypocitraturia, hyperoxaluria. (5) COPD (chronic obstructive pulmonary disease) Status: Chronic Plan: -Albuterol 2.5 mg inhaler q 2 hr prn -Duonebs every 4 hours when necessary for shortness of breath or wheezing (6) Physical deconditioning Status: Acute Plan: -Physical therapy consulted to assist with out of bed and exercises -Physical therapy recommends discharge to rehabilitation facility (7) Osteoporosis Status: Chronic Plan: -Hold bisphosphonate therapy at this time -Will restart once tolerating by mouth therapy and nausea has improved -Fall precautions in place (8) Depression Status: Chronic Plan: Resume home psychotropic meds as follows: -Bupropion 100 mg tablets twice a day -Prozac 10 mg daily -Trazodone 100 mg daily at bedtime (9) HTN (hypertension) Status: Chronic Plan: Home medication: Amlodipine 10 mg daily Currently on amlodipine 5 mg daily 2/2 hypotension -Hold antihypertensive meds for SBP <90 and/or DBP <60 (10) Shingles rash Status: Acute Plan: -Continue valacyclovir 100 mg by mouth every 8 hours (11) Metabolic acidosis Status: Resolved Plan: Patient presented with normal anion gap metabolic acidosis suspected to be hyperchloremic metabolic acidosis due to loss from excessive ostomy output. -Status post ileostomy takedown on 01/20 -Metabolic derangements have improved (12) UTI (urinary tract infection) Status: Resolved Plan: Urine micro growing group D enterococcus and yeast on repeat urine culture -Yeast Kayla krusei intrinsically resistant to Fluconazole - most likely contaminant -DC ampicillin 1 g every 12h IV, patient has received 4 doses (13) FEN/ppx Status: Chronic Plan: Fluids: NS @ 80 ml/hr Electrolytes: Monitoring and will replete as needed Nutrition: Regular diet per surgery DVT prophylaxis: Heparin 5000 units every 8 hours - holding due to abdominal hematoma (Sumi Gentile MD R3) Sumi Gentile MD R3 Feb 06, 2017 13:33 Ana Solomon MD Feb 06, 2017 13:38
[2017-02-06] MEDS: SODIUM CHLOR 0.9% 1000 ML INJ 1,000 ML IV SCH (14:06)
[2017-02-06] MEDS ORDERED: DIATRIZOATE MEGLUM/DIATRIZOATE SOD 9 ML CUP PO ONE (15:15)
[2017-02-06] MEDS: PANTOPRAZOLE SODIUM 40 MG VIAL IV PUSH SCH (17:03)
[2017-02-06] MEDS ORDERED: IODIXANOL 320 MG/ML 10 ML VIAL (for Rad CT) IV ONE (18:28)
--- NOTE | 2017-02-06 18:39 | RADRPT ---
EXAM DATE/TIME: 02/06/2017 18:23 [place] COMPARISON: CT ABDOMEN & PELVIS W CONTRAST, February 05, 2017, 0:50. INDICATIONS : Abdominal pain and eval hematoma. IV CONTRAST: 50 cc Visipaque (iodixanol) IV ORAL CONTRAST: Prescribed oral contrast ingested. RADIATION DOSE: 7.76 CTDIvol (mGy) MEDICAL HISTORY : Hypertension. Deep venous thrombosis. Renal failure, chronic.COPD. SURGICAL HISTORY : Colostomy. Appendectomy.Hysterectomy.Kidney stents. ENCOUNTER: Subsequent ACUITY: 1 day PAIN SCALE: 5/10 LOCATION: Bilateral lower quadrant TECHNIQUE: Volumetric scanning of the abdomen and pelvis was performed. Using automated exposure control and ad justment of the mA and/or kV according to patient size, radiation dose was kept as low as reasonably achievable to obtain optimal diagnostic quality images. FINDINGS: LOWER LUNGS: The visualized lower lungs are clear. LIVER: Stable cholelithiasis and some are low density lesion in the left hepatic lobe is overtly benign and may represent a cyst or hemangioma. There is no dilation of the biliary tree. Patient is status post cholecystectomy. SPLEEN: Normal size without lesion. PANCREAS: Within normal limits. KIDNEYS: Left kidney is atrophic but stable. There is bilateral nephrocalcinosis. Renal cortical cysts are lazaro ntified bilaterally. ADRENAL GLANDS: Within normal limits. VASCULAR: There is no aortic aneurysm. BOWEL/MESENTERY: The 3 cm lobulated collection adjacent to the bowel in the right upper quadrant is not significantly changed. The adjacent anterior abdominal wall is thickened without a well-defined collection. RETROPERITONEUM: There is no lymphadenopathy. BLADDER: No wall thickening or mass. REPRODUCTIVE: Patient is status post hysterectomy. INGUINAL: There is no lymphadenopathy or hernia. MUSCULOSKELETAL: Dextroscoliosis of the thoracolumbar spine. CONCLUSION: Bowel surgery in the right upper quadrant and there is a 3 cm adjacent collection, nonspecific but co uld be a walled off leak. It is not significantly changed. There is no evidence of active bleeding an ywhere. There is mild induration of the surrounding soft tissues including the adjacent anterior abdo priyanka wall. Nabeel Padgett MD on February 06, 2017 at 18:34 Board Certified Radiologist. This report was verified electronically.
--- NOTE | 2017-02-06 22:10 | HHI.PR ---
Subjective Remarks C/R Surg - POD afebrile, VSS - Bp better +BM/flatus UO good, actually great benito PO c/o pain rt side/back Objective - Vital Signs Date Time Temp Pulse Resp B/P Pulse Ox O2 Delivery O2 Flow Rate FiO2 02/06/17 16:22 97.3 82 18 95/55 96 Result Diagram: 02/06/1745 02/06/1745 Objective Remarks PE alert Abd - soft, minor induration along wound, min tympany A/P Assessment and Plan Imp: OOB PT reg diet reviewed CT - no contrast in area of concern, poss hematoma, cont to watch - repeat - no change tx PRBC ?transfusion actually documented, Hgb up and down, ?poor draws Steven King MD Feb 06, 2017 22:10
[2017-02-06] MEDS: traZODone HCL 100 MG TAB PO SCH (22:26)
[2017-02-07] VITALS: BP 112/73; PULSE 78; RESP 20; TEMP 97.3; O2SAT 98
[2017-02-07 00:46] LABS: REVIEW FLAG FINAL
[2017-02-07 04:00] VITALS: BP 91/47; PULSE 80; RESP 18; TEMP 98.9; O2SAT 94
[2017-02-07] MEDS: valACYclovir HCL 500 MG TAB PO SCH ×3 (05:10→21:45)
[2017-02-07] MEDS: oxyCODONE/ACETAMINOPHEN 5 MG/325 MG TAB PO PRN ×2 (05:11)
[2017-02-07 05:53] LABS: BASOPHIL # 0.1 TH/MM3 (0-0.2); EOSINOPHIL # 0.4 TH/MM3 (0-0.4); EOSINOPHIL % 6.2 % (0.0-4.0); HEMATOCRIT 33.4 % (35.0-46.0); HEMO FLAGS DIFF FINAL; LYMPH % 33.1 % (9.0-44.0); LYMPHOCYTE # 2.1 TH/MM3 (1.0-4.8); MEAN CELL VOLUME 92.3 FL (80.0-100.0); MEAN CORPUSCULAR HEMOGLOBIN 32.2 PG (27.0-34.0); MEAN CORPUSCULAR HGB CONC 34.8 % (32.0-36.0); MONO % 11.3 % (0.0-8.0); NEUT % 48.4 % (16.0-70.0); PLATELET COUNT 332 TH/MM3 (150-450); RED BLOOD COUNT 3.61 MIL/MM3 (4.00-5.30); RED CELL DISTRIBUTION WIDTH 16.2 % (11.6-17.2); WHITE BLOOD COUNT 6.2 TH/MM3 (4.0-11.0)
[2017-02-07 06:22] LABS: BICARBONATE 24.1 MEQ/L (21.0-32.0); POTASSIUM 4.6 MEQ/L (3.5-5.1)
[2017-02-07 08:00] VITALS: BP 83/62; PULSE 76; RESP 16; TEMP 97.4; O2SAT 95
[2017-02-07] MEDS: SODIUM CHLORIDE 0.9% FLUSH 5 ML FLUSH IVF SCH ×2 (09:00→20:42)
[2017-02-07] MEDS: POTASSIUM CHLORIDE 10 MEQ CONTROLLED RELEASE TAB PO SCH (09:00)
[2017-02-07] MEDS: SODIUM CHLOR 0.9% 1000 ML INJ 1,000 ML IV SCH ×2 (09:15→21:45)
--- NOTE | 2017-02-07 09:15 | HHI.FPPN ---
Subjective Remarks Patient is doing good this morning. She is hoping her blood pressure is high enough so she can receive pain medications. She continues to have the same abdominal and back pain. She denies nausea. She thinks she is getting better. She ate breakfast which included biscuits and sausage. She is having bowel movements. No fever, chills. (Castro Smiley MD R2) Objective Vitals Vital Signs Date Time Temp Pulse Resp B/P Pulse Ox O2 Delivery O2 Flow Rate FiO2 02/07/17 08:00 97.4 76 16 83/62 95 02/07/17 04:00 98.9 80 18 91/47 94 02/07/17 00:00 97.3 78 20 112/73 98 02/06/17 20:00 97.0 78 16 92/52 96 02/06/17 16:22 97.3 82 18 95/55 96 02/06/17 12:27 96.6 78 18 99/56 97 I/O 02/06/17 02/06/17 02/06/17 02/07/17 02/07/17 02/07/17 07:00 15:00 23:00 07:00 15:00 23:00 Intake Total 712 ml 480 ml 482 ml Output Total 1350 ml Balance -638 ml 480 ml 482 ml Intake Oral 360 ml 480 ml 482 ml IV Total 102 ml Packed Cells 250 ml Output Urine Total 1350 ml # Voids 4 4 4 # Bowel Movements 3 4 (Castro Smiley MD R2) Result Diagram: 02/07/17 0520 02/07/17 0520 Imaging Last Impressions Abdomen/Pelvis CT 02/06/17 0000 Signed Impressions: Service Date/Time: Monday, February 06, 2017 18:23 - CONCLUSION: Bowel surgery in the right upper quadrant and there is a 3 cm adjacent collection, nonspecific but could be a walled off leak. It is not significantly changed. There is no evidence of active bleeding anywhere. There is mild induration of the surrounding soft tissues including the adjacent anterior abdominal wall. Nabeel Padgett MD Abdomen X-Ray 02/04/17 0000 Signed Impressions: Service Date/Time: Saturday, February 04, 2017 14:59 - CONCLUSION: Fairly benign-appearing abdomen. No evidence of obstruction or other acute process. Chronic findings as above. Nabeel Padgett MD Chest X-Ray 01/29/17 0000 Signed Impressions: Service Date/Time: January 11:41 - CONCLUSION: 1. PICC in good position. Ervin Lloyd MD Upper GI Series 01/27/17 0000 Signed Impressions: Service Date/Time: Friday, January 27, 2017 09:35 - CONCLUSION: Unremarkable upper gastrointestinal examination limited due to patient mobility and difficulty swallowing large amounts of Gastrografin. Jonas Terry MD Renal Ultrasound 01/18/17 0000 Signed Impressions: Service Date/Time: Wednesday, January 18, 2017 18:05 - CONCLUSION: 1. Extensive medullary nephrocalcinosis. Atrophic kidneys. No hydronephrosis. Jerald Lau MD Head CT 01/17/172222 Signed Impressions: Service Date/Time: Tuesday, January 17, 2017 23:21 - CONCLUSION: No evidence of acute intracranial pathology. No masses are identified. Sushant Woods MD Objective Remarks GENERAL: Pale-appearing, thin. SKIN: Skin intact. Cool and dry HEAD: Normocephalic, atraumatic EYES: Pupils equal round and reactive. Extraocular motions intact. No scleral icterus. No injection or drainage ENT: Mucous membranes moist CARDIOVASCULAR: Faint heart sounds, regular rate and rhythm RESPIRATORY: CTAB. Breath sounds equal bilaterally but poor effort. No wheezes, rales, or rhonchi GASTROINTESTINAL: Positive bowel sounds. Tender to palpation in the right quadrant and central abdomen. Abdominal incision looks well healed. NEUROLOGICAL: Awake and alert. Cranial nerves II through XII grossly intact. Motor and sensory grossly within normal limits. Normal speech (Castro Smiley MD R2) A/P Assessment and Plan Ms. Rogers is a pleasant 66-year-old female, that presented with 6 days of abdominal pain, nausea, and persistent vomiting. She had a history of diverticulitis with temporary ileostomy and was known to the colorectal surgery team. She presented with high output ileostomy and metabolic acidosis. Currently, she is status post exploratory laparotomy with segmental small bowel resection and closure of ileostomy performed on 01/22. She developed right quadrant abdominal pain on 02/04 and hypotension with systolic BP down to 71. A HaliCAT was called and pt received a 500L NS bolus. A CT scan of her abdomen was performed which shows a 3cm hyperdense collection adjacent to surgerized abdomen that may represent a hematoma or abscess. Contacted Dr. King who reviewed the images - most likely a hematoma. Patient was transfused 2 units packed red blood cells with appropriate response in hemoglobin and hematocrit. Currently she is stable Discharge Planning Discharge pending stabilization of H&H and improved, pain. She'll need follow- up with nephrology and urology. PT recommends PT at rehabilitation. Patient has been accepted at [facility] for long-term care. (Castro Smiley MD R2) Attending Attestation Patient seen and examined. Case reviewed and discussed. Agree with plan of care as discussed with me and documented in the resident note. (Ana Solomon MD) Problem List: (1) Anemia Status: Acute Plan: Currently stable. Continue to monitor Repeat CT shows no significant change. No evidence of active bleeding. Hemoccult positive stool (2) Abdominal hematoma Status: Acute Plan: CT abdomen/pelvis on 02/[address] on 02/06 stable exam. (3) History of diverticulitis Status: Chronic Plan: Patient has history of diverticulitis. She developed high-output ileostomy. She is now status post exploratory laparotomy with segmental small bowel resection and closure of ileostomy. Operative day on 01/22 Diet advanced per surgery Colorectal surgery following (Dr. King) Pain management: Percocet 2 tab by mouth every 4 hours pain 6-10, hold for SBP < 90 and/or DBP <60 Bowel regimen: Reglan 10 mg 3 times a day before meals, Carafate 1 g by mouth every 8 hours, Zofran for nausea, docusate 1 tab by mouth twice a day Out of bed to chair and physical therapy (4) Acute on chronic renal insufficiency Status: Acute Plan: Nephrology consulted, appreciate their recommendations Creatinine improved to baseline -Patient is to follow-up with nephrology as an outpatient. An outpatient recommended Litholink study as medullary sponge kidney can also be associated with hypocitraturia, hyperoxaluria. (5) COPD (chronic obstructive pulmonary disease) Status: Chronic Plan: -Albuterol 2.5 mg inhaler q 2 hr prn -Duonebs every 4 hours when necessary for shortness of breath or wheezing (6) Physical deconditioning Status: Acute Plan: -Physical therapy consulted to assist with out of bed and exercises -Physical therapy recommends discharge to rehabilitation facility (7) Osteoporosis Status: Chronic Plan: -Hold bisphosphonate therapy at this time -Will restart once tolerating by mouth therapy and nausea has improved -Fall precautions in place (8) Depression Status: Chronic Plan: Resume home psychotropic meds as follows: -Bupropion 100 mg tablets twice a day -Prozac 10 mg daily -Trazodone 100 mg daily at bedtime (9) HTN (hypertension) Status: Chronic Plan: Home medication: Amlodipine 10 mg daily Currently holding blood pressure medications secondary to hypotension. (10) Shingles rash Status: Acute Plan: -Continue valacyclovir 100 mg by mouth every 8 hours (started 02/03, today is day #4 of 7) (11) Metabolic acidosis Status: Resolved Plan: Patient presented with normal anion gap metabolic acidosis suspected to be hyperchloremic metabolic acidosis due to loss from excessive ostomy output. -Status post ileostomy takedown on 01/20 -Metabolic derangements have improved (12) UTI (urinary tract infection) Status: Resolved Plan: Urine micro growing group D enterococcus and yeast on repeat urine culture -Yeast Kayla krusei intrinsically resistant to Fluconazole - most likely contaminant -DC ampicillin 1 g every 12h IV, patient has received 4 doses (13) FEN/ppx Status: Chronic Plan: Fluids: NS @ 80 ml/hr Electrolytes: Monitoring and will replete as needed Nutrition: Regular diet per surgery DVT prophylaxis: Heparin 5000 units every 8 hours - holding due to abdominal hematoma (Castro Smiley MD R2) Problem Qualifiers (1) Anemia: Qualified Code: D64.9 - Anemia, unspecified type Castro Smiley MD R2 Feb 07, 2017 09:15 Ana Solomon MD Feb 13, 2017 12:49
[2017-02-07] MEDS: SUCRALFATE 1 GM/10 ML CUP PO SCH ×2 (09:44→20:41)
[2017-02-07] MEDS: FLUoxetine HCL 10 MG CAP PO SCH (09:45)
[2017-02-07] MEDS: buPROPion HCL 100 MG TAB PO SCH ×2 (09:57→20:42)
[2017-02-07] MEDS: oxyCODONE/ACETAMINOPHEN 10 MG/325 MG TAB PO PRN ×3 (10:01→21:46)
--- NOTE | 2017-02-07 10:29 | HHI.PR ---
Subjective Remarks No complaints. Less pain since pain meds given. Awake,alert,oriented. Tolerating PO. Objective Vital Signs Date Time Temp Pulse Resp B/P Pulse Ox O2 Delivery O2 Flow Rate FiO2 02/07/17 08:00 97.4 76 16 83/62 95 02/07/17 04:00 98.9 80 18 91/47 94 02/07/17 00:00 97.3 78 20 112/73 98 02/06/17 20:00 97.0 78 16 92/52 96 02/06/17 16:22 97.3 82 18 95/55 96 02/06/17 12:27 96.6 78 18 99/56 97 I/O 02/06/17 02/06/17 02/06/17 02/07/17 02/07/17 02/07/17 07:00 15:00 23:00 07:00 15:00 23:00 Intake Total 712 ml 480 ml 482 ml Output Total 1350 ml Balance -638 ml 480 ml 482 ml Intake Oral 360 ml 480 ml 482 ml IV Total 102 ml Packed Cells 250 ml Output Urine Total 1350 ml # Voids 4 4 4 # Bowel Movements 3 4 Result Diagram: 02/07/17 0520 02/07/17 0520 Objective Remarks VS-S Abd: benign Assessment and Plan Assessment and Plan Stable. D/C to [facility] anytime OK with CRS. F/U with Dr King in 2 weeks after D/C. Nabeel Barragan MD Feb 07, 2017 10:29
[2017-02-07 12:00] VITALS: BP 82/51; PULSE 76; RESP 16; TEMP 97.2; O2SAT 95
--- NOTE | 2017-02-07 15:10 | HHI.FPPN ---
Addendum to progress note ADDENDUM Reason for addendum: Additonal documentation Additional information OFF SERVICE NOTE History of Present Illness "Mrs. Walker is a pleasant 66 y/o female, who presents to [facility] with 6 days of nausea and vomiting (Thursday01/10/2017). Her symptoms started with generalized fatigue. Then, gradually became nauseous over the next several days. Her first episode of emesis was 6 days ago. During the beginning of her symptoms, she was vomiting 2-3 x per day. The emesis was described as clear and green in color. She reports small amounts of emesis since this time. For a couple of days she did not vomit but did feel nauseous, and had dry heaves. She has a colostomy bag, and this has been causing her discomfort for 6 months. This pain has been getting worse over the past several weeks. Her current abdominal pain is located over her umbilicus, and suprapubic. The pain is a 8/ 10 pain, constant. During the past 6 days she reports difficulty even drinking fluids. She denies using antibiotics recently. ROS: Fevers (subjective, chills+), sometimes gets blurry vision, nasal congestion, less frequent urination. Denies sore throat, shortness of breath, chest pain, headaches, no palpitations , no dysuria, no unilateral weakness or numbness, denies rashes. " Hospital Course Ms. Rogers is a pleasant 66-year-old female, that presented with 6 days of abdominal pain, nausea, and persistent vomiting. She had a history of diverticulitis with temporary ileostomy and was known to the colorectal surgery team. She presented with high output ileostomy and metabolic acidosis. Currently, she is status post exploratory laparotomy with segmental small bowel resection and closure of ileostomy performed on 01/22. She developed right quadrant abdominal pain on 02/04 and hypotension with systolic BP down to 71. A HaliCAT was called and pt received a 500L NS bolus. A CT scan of her abdomen was performed which showed a 3cm hyperdense collection adjacent to surgerized abdomen that may represent a hematoma or abscess. Dr. King was contacted and he reviewed the images, deciding that the fluid collection most likely a hematoma. She was transfused 2 units packed red blood cells with appropriate response in hemoglobin and hematocrit. The hematoma was stable as seen on repeat CT scan. Currently she is stable and has been cleared for discharge by colorectal surgery to [facility] for long-term care. (Arlin Gillespie MD R1) Arlin Gillespie MD R1 Feb 07, 2017 15:10 Ana Solomon MD Feb 13, 2017 12:49
[2017-02-07 16:00] VITALS: BP 110/61; PULSE 82; RESP 16; TEMP 96.5; O2SAT 97
[2017-02-07] MEDS: PANTOPRAZOLE SOD 40 MG DELAYED RELEASE TAB PO SCH (16:05)
[2017-02-07 20:00] VITALS: BP 110/80; PULSE 81; RESP 18; TEMP 98.4; O2SAT 95
[2017-02-07] MEDS: traZODone HCL 100 MG TAB PO SCH (20:41)
[2017-02-08] VITALS: BP 124/63; PULSE 67; RESP 18; TEMP 98.2; O2SAT 94
[2017-02-08] MEDS: oxyCODONE/ACETAMINOPHEN 10 MG/325 MG TAB PO PRN ×5 (03:59→20:26)
[2017-02-08 04:00] VITALS: BP 90/60; PULSE 56; RESP 20; TEMP 97; O2SAT 95
[2017-02-08 04:24] LABS: AUTOMATED NEUTROPHIL # 3.1 TH/MM3 (1.8-7.7); BASOPHIL % 0.7 % (0.0-2.0); EOSINOPHIL # 0.4 TH/MM3 (0-0.4); EOSINOPHIL % 6.2 % (0.0-4.0); HEMATOCRIT 32.7 % (35.0-46.0); HEMO FLAGS DIFF FINAL; LYMPH % 32.7 % (9.0-44.0); LYMPHOCYTE # 2.1 TH/MM3 (1.0-4.8); MEAN CELL VOLUME 93.4 FL (80.0-100.0); MEAN CORPUSCULAR HEMOGLOBIN 30.5 PG (27.0-34.0); MEAN CORPUSCULAR HGB CONC 32.6 % (32.0-36.0); MONO % 11.3 % (0.0-8.0); NEUT % 49.1 % (16.0-70.0); PLATELET COUNT 342 TH/MM3 (150-450); RED CELL DISTRIBUTION WIDTH 15.7 % (11.6-17.2); WHITE BLOOD COUNT 6.4 TH/MM3 (4.0-11.0)
[2017-02-08 05:02] LABS: ALKALINE PHOSPHATASE 98 U/L (45-117); ALT (GPT) 11 U/L (10-53); ANION GAP 11 MEQ/L (5-15); AST (GOT) 9 U/L (15-37); BICARBONATE 27.4 MEQ/L (21.0-32.0); BLOOD UREA NITROGEN 23 MG/DL (7-18); CHLORIDE 107 MEQ/L (98-107); GLOMERULAR FILTRATION RATE 30 ML/MIN (>89); POTASSIUM 4.3 MEQ/L (3.5-5.1); SODIUM (NA) 145 MEQ/L (136-145); TOTAL BILIRUBIN ADULT 0.2 MG/DL (0.2-1.0)
[2017-02-08] MEDS: valACYclovir HCL 500 MG TAB PO SCH ×3 (05:15→20:27)
[2017-02-08 08:00] VITALS: BP 100/60; PULSE 89; RESP 16; TEMP 97.2; O2SAT 93
--- NOTE | 2017-02-08 08:44 | HHI.FPPN ---
Subjective Remarks She is doing "fine" this morning. She continues to have abdominal pain that she has been able to take her pain medications because her blood pressure has been better. Her pain is improved with her medications. She continues to have diarrhea. She denies black or bloody stools. She is getting out of bed multiple times during the day. No cough, fever, chills. She is having some edema in her ankles bilaterally. No calf tenderness. (Castro Smiley MD R2) Objective Vitals Vital Signs Date Time Temp Pulse Resp B/P Pulse Ox O2 Delivery O2 Flow Rate FiO2 02/08/17 08:00 97.2 89 16 100/60 93 02/08/17 04:35 20 02/08/17 04:00 97.0 56 20 90/60 95 02/08/17 00:00 98.2 67 18 124/63 94 02/07/17 20:00 98.4 81 18 110/80 95 02/07/17 16:00 96.5 82 16 110/61 97 02/07/17 12:00 97.2 76 16 82/51 95 I/O 02/07/17 02/07/17 02/07/17 02/08/17 02/08/17 02/08/17 07:00 15:00 23:00 07:00 15:00 23:00 Intake Total 720 ml 0 ml Output Total 1100 ml Balance -380 ml 0 ml Intake Oral 720 ml IV Total 0 ml Output Urine Total 900 ml Stool Total 200 ml # Voids 4 3 # Bowel Movements 4 1 (Castro Smiley MD R2) Result Diagram: 02/08/17 0400 02/08/17 0400 Objective Remarks GENERAL: Pale-appearing, thin. SKIN: Skin intact. Cool and dry. 1+ edema at the ankles bilaterally. HEAD: Normocephalic, atraumatic EYES: Pupils equal round and reactive. Extraocular motions intact. No scleral icterus. No injection or drainage ENT: Mucous membranes moist CARDIOVASCULAR: Faint heart sounds, regular rate and rhythm RESPIRATORY: CTAB. Breath sounds equal bilaterally but poor effort. No wheezes, rales, or rhonchi GASTROINTESTINAL: Positive bowel sounds. Tender to palpation in the right quadrant and central abdomen. Abdominal incision looks well healed. NEUROLOGICAL: Awake and alert. Cranial nerves II through XII grossly intact. Motor and sensory grossly within normal limits. Normal speech (Castro Smiley MD R2) A/P Assessment and Plan Ms. Rogers is a pleasant 66-year-old female, that presented with 6 days of abdominal pain, nausea, and persistent vomiting. She had a history of diverticulitis with temporary ileostomy and was known to the colorectal surgery team. She presented with high output ileostomy and metabolic acidosis. Currently, she is status post exploratory laparotomy with segmental small bowel resection and closure of ileostomy performed on 01/22. She developed right quadrant abdominal pain on 02/04 and hypotension with systolic BP down to 71. A HaliCAT was called and pt received a 500L NS bolus. A CT scan of her abdomen was performed which shows a 3cm hyperdense collection adjacent to surgerized abdomen that may represent a hematoma or abscess. Contacted Dr. King who reviewed the images - most likely a hematoma. Patient was transfused 2 units packed red blood cells with appropriate response in hemoglobin and hematocrit. Currently she is stable Discharge Planning Discharge pending clinical improvement. As of 02/07, colorectal surgery is okay with discharging this patient. Colorectal recommends follow-up with Dr. King 2 weeks after discharge. She'll need follow-up with nephrology and urology. PT recommends PT at rehabilitation. Patient has been accepted at [facility] for long-term care. (Castro Smiley MD R2) Attending Attestation Patient seen and examined. Case reviewed and discussed. Agree with plan of care as discussed with me and documented in the resident note. (Ana Solomon MD) Problem List: (1) Diarrhea Status: Acute Plan: Patient continues to have diarrhea with Hemoccult positive stool Colorectal surgery on board We'll obtain C. difficile culture. Continue IV fluids as below (2) Anemia Status: Acute Plan: Currently stable. Continue to monitor Repeat CT shows no significant change. No evidence of active bleeding. Hemoccult positive stool (3) Abdominal hematoma Status: Acute Plan: CT abdomen/pelvis on 02/[address] on 02/06 stable exam. (4) History of diverticulitis Status: Chronic Plan: Patient has history of diverticulitis. She developed high-output ileostomy. She is now status post exploratory laparotomy with segmental small bowel resection and closure of ileostomy. Operative day on 01/22 Diet advanced per surgery Colorectal surgery following (Dr. King); as of 02/07, colorectal surgery has cleared the patient for discharge. Pain management: Percocet 2 tab by mouth every 4 hours pain 6-10, hold for SBP < 85 and/or DBP <55 Bowel regimen: Reglan 10 mg 3 times a day before meals, Carafate 1 g by mouth every 8 hours, Zofran for nausea, docusate 1 tab by mouth twice a day Out of bed to chair and physical therapy (5) Acute on chronic renal insufficiency Status: Acute Plan: Currently creatinine is increasing Likely related to increased diarrhea Continue normal saline at 80 ML per hour Nephrology previously consulted on the patient but has signed off. -Patient is to follow-up with nephrology as an outpatient. An outpatient recommended Litholink study as medullary sponge kidney can also be associated with hypocitraturia, hyperoxaluria. (6) COPD (chronic obstructive pulmonary disease) Status: Chronic Plan: -Albuterol 2.5 mg inhaler q 2 hr prn -Duonebs every 4 hours when necessary for shortness of breath or wheezing (7) Physical deconditioning Status: Acute Plan: -Physical therapy consulted to assist with out of bed and exercises -Physical therapy recommends discharge to rehabilitation facility (8) Osteoporosis Status: Chronic Plan: -Hold bisphosphonate therapy at this time -Will restart once tolerating by mouth therapy and nausea has improved -Fall precautions in place (9) Depression Status: Chronic Plan: Resume home psychotropic meds as follows: -Bupropion 100 mg tablets twice a day -Prozac 10 mg daily -Trazodone 100 mg daily at bedtime (10) HTN (hypertension) Status: Chronic Plan: Home medication: Amlodipine 10 mg daily Currently holding blood pressure medications secondary to hypotension. (11) Shingles rash Status: Acute Plan: Improving -Continue valacyclovir 100 mg by mouth every 8 hours (started 02/03, today is day #5 of 7) (12) Metabolic acidosis Status: Resolved Plan: Patient presented with normal anion gap metabolic acidosis suspected to be hyperchloremic metabolic acidosis due to loss from excessive ostomy output. -Status post ileostomy takedown on 01/20 -Metabolic derangements have improved (13) UTI (urinary tract infection) Status: Resolved Plan: Urine micro growing group D enterococcus and yeast on repeat urine culture -Yeast Kayla krusei intrinsically resistant to Fluconazole - most likely contaminant -DC ampicillin 1 g every 12h IV, patient has received 4 doses (14) FEN/ppx Status: Chronic Plan: Fluids: NS @ 80 ml/hr Electrolytes: Monitoring and will replete as needed Nutrition: Regular diet per surgery DVT prophylaxis: Heparin 5000 units every 8 hours - holding due to abdominal hematoma (Castro Smiley MD R2) Problem Qualifiers (1) Anemia: Qualified Code: D64.9 - Anemia, unspecified type Castro Smiley MD R2 Feb 08, 2017 08:44 Ana Solomon MD Feb 13, 2017 12:49
[2017-02-08] MEDS: POTASSIUM CHLORIDE 10 MEQ CONTROLLED RELEASE TAB PO SCH (09:00)
[2017-02-08] MEDS: SUCRALFATE 1 GM/10 ML CUP PO SCH ×2 (09:49→20:15)
[2017-02-08] MEDS: buPROPion HCL 100 MG TAB PO SCH ×2 (09:49→20:27)
[2017-02-08] MEDS: SODIUM CHLOR 0.9% 1000 ML INJ 1,000 ML IV SCH (09:49)
[2017-02-08] MEDS: FLUoxetine HCL 10 MG CAP PO SCH (09:49)
[2017-02-08] MEDS: SODIUM CHLORIDE 0.9% FLUSH 5 ML FLUSH IVF SCH (09:50)
--- NOTE | 2017-02-08 11:47 | HHI.PR ---
Subjective Remarks No complaints. Less pain since pain meds given. Awake,alert,oriented. Tolerating PO. Has diarrhea. Possible C. Diff, but no sign of colitis on CT 2 days ago.Most likely due to gastrograffin oral contrast 2 days ago and Ensure. Also normal to some extent after Ileostomy closure. If C. Diff is negative diarrhea should resolve. Objective Vital Signs Date Time Temp Pulse Resp B/P Pulse Ox O2 Delivery O2 Flow Rate FiO2 02/08/17 08:00 97.2 89 16 100/60 93 02/08/17 04:35 20 02/08/17 04:00 97.0 56 20 90/60 95 02/08/17 00:00 98.2 67 18 124/63 94 02/07/17 20:00 98.4 81 18 110/80 95 02/07/17 16:00 96.5 82 16 110/61 97 02/07/17 12:00 97.2 76 16 82/51 95 I/O 02/07/17 02/07/17 02/07/17 02/08/17 02/08/17 02/08/17 07:00 15:00 23:00 07:00 15:00 23:00 Intake Total 720 ml 0 ml Output Total 1100 ml Balance -380 ml 0 ml Intake Oral 720 ml IV Total 0 ml Output Urine Total 900 ml Stool Total 200 ml # Voids 4 3 # Bowel Movements 4 1 Result Diagram: 02/08/1739902/08/170 Objective Remarks VS-S Abd: benign Assessment and Plan Assessment and Plan Stable. D/C to [facility] anytime OK with CRS. F/U with Dr King in 2 weeks after D/C. Nabeel Barragan MD Feb 08, 2017 11:46
[2017-02-08 12:00] VITALS: BP 99/58; PULSE 83; RESP 16; TEMP 96.4; O2SAT 95
[2017-02-08] MEDS: PANTOPRAZOLE SOD 40 MG DELAYED RELEASE TAB PO SCH (15:44)
[2017-02-08 16:00] VITALS: BP 112/61; PULSE 85; RESP 16; TEMP 97.4; O2SAT 96
[2017-02-08 20:00] VITALS: BP 88/57; PULSE 83; RESP 18; TEMP 97; O2SAT 97
[2017-02-08] MEDS: traZODone HCL 100 MG TAB PO SCH (20:26)
[2017-02-09] VITALS: BP_SYST 101; BP_SYST 131; BP_DIAS 72; BP_DIAS 84; PULSE 100; PULSE 90; RESP 18; RESP 20; TEMP 97; O2SAT 100
[2017-02-09] MEDS: oxyCODONE/ACETAMINOPHEN 10 MG/325 MG TAB PO PRN ×6 (00:55→21:47)
[2017-02-09 04:00] VITALS: BP 122/74; PULSE 71; RESP 18; TEMP 97.4; O2SAT 98
[2017-02-09] MEDS: valACYclovir HCL 500 MG TAB PO SCH ×3 (05:12→21:47)
[2017-02-09] MEDS: SODIUM CHLORIDE 0.9% FLUSH 5 ML FLUSH IVF SCH ×3 (05:13→21:52)
[2017-02-09 06:57] LABS: AUTOMATED NEUTROPHIL # 3.2 TH/MM3 (1.8-7.7); BASOPHIL % 0.7 % (0.0-2.0); EOSINOPHIL # 0.3 TH/MM3 (0-0.4); EOSINOPHIL % 5.2 % (0.0-4.0); HEMATOCRIT 32.1 % (35.0-46.0); HEMO FLAGS DIFF FINAL; LYMPH % 34.3 % (9.0-44.0); LYMPHOCYTE # 2.1 TH/MM3 (1.0-4.8); MEAN CELL VOLUME 92.8 FL (80.0-100.0); MEAN CORPUSCULAR HEMOGLOBIN 31.1 PG (27.0-34.0); MEAN CORPUSCULAR HGB CONC 33.5 % (32.0-36.0); NEUT % 50.8 % (16.0-70.0); PLATELET COUNT 374 TH/MM3 (150-450); RED BLOOD COUNT 3.46 MIL/MM3 (4.00-5.30); RED CELL DISTRIBUTION WIDTH 15.6 % (11.6-17.2); WHITE BLOOD COUNT 6.2 TH/MM3 (4.0-11.0)
[2017-02-09 07:12] LABS: ANION GAP 10 MEQ/L (5-15); AST (GOT) 8 U/L (15-37); BICARBONATE 26.1 MEQ/L (21.0-32.0); BLOOD UREA NITROGEN 25 MG/DL (7-18); CHLORIDE 108 MEQ/L (98-107); GLOMERULAR FILTRATION RATE 29 ML/MIN (>89); POTASSIUM 4.1 MEQ/L (3.5-5.1); SODIUM (NA) 144 MEQ/L (136-145)
[2017-02-09 07:16] LABS: ALKALINE PHOSPHATASE 86 U/L (45-117); ALT (GPT) 10 U/L (10-53); TOTAL BILIRUBIN ADULT 0.2 MG/DL (0.2-1.0)
[2017-02-09] MEDS: FLUoxetine HCL 10 MG CAP PO SCH (08:26)
[2017-02-09] MEDS: buPROPion HCL 100 MG TAB PO SCH ×2 (08:26→21:00)
[2017-02-09] MEDS: SUCRALFATE 1 GM/10 ML CUP PO SCH ×2 (08:26→21:46)
[2017-02-09 08:45] VITALS: BP 97/63; PULSE 82; RESP 18; TEMP 97.5; O2SAT 93
[2017-02-09] MEDS ORDERED: PERC10TA27 PO (09:18)
[2017-02-09] MEDS ORDERED: PERI8.6T PO (09:19)
--- NOTE | 2017-02-09 10:05 | HHI.FPPN ---
Subjective Remarks Mrs. Rogers reports feeling better each day. She is still having right upper quadrant abdominal pain, that is moderately well controlled with Percocet. She had her first bowel movement today that was semi-formed, but soft. She denies any diarrhea, blood in her stool, or constipation. She is tolerating whole meals, and ate a muffin and some fruit today for breakfast. She is ambulating without difficulty. She is aware about nursing home facility placement. ( Augusto Glass MD R2) Objective Vitals Vital Signs Date Time Temp Pulse Resp B/P Pulse Ox O2 Delivery O2 Flow Rate FiO2 02/09/17 08:45 97.5 82 18 97/63 93 02/09/17 04:00 97.4 71 18 122/74 98 02/09/17 00:00 97.0 90 20 101/72 100 02/08/17 20:00 97.0 83 18 88/57 97 02/08/17 16:00 97.4 85 16 112/61 96 02/08/17 12:00 96.4 83 16 99/58 95 I/O 02/08/17 02/08/17 02/08/17 02/09/17 02/09/17 02/09/17 07:00 15:00 23:00 07:00 15:00 23:00 Intake Total 0 ml 240 ml Balance 0 ml 240 ml Intake Oral 240 ml IV Total 0 ml # Voids 3 2 5 # Bowel Movements 1 1 1 (Augusto Glass MD R2) Result Diagram: 02/09/17 0520 02/09/17 0520 Objective Remarks GENERAL: Pale-appearing, thin. SKIN: Skin intact. Cool and dry. 1+ edema at the ankles bilaterally. HEAD: Normocephalic, atraumatic EYES: Pupils equal round and reactive. Extraocular motions intact. No scleral icterus. No injection or drainage ENT: Mucous membranes moist CARDIOVASCULAR: Faint heart sounds, regular rate and rhythm RESPIRATORY: CTAB. Breath sounds equal bilaterally but poor effort. No wheezes, rales, or rhonchi GASTROINTESTINAL: Positive bowel sounds. Tender to palpation in the right quadrant and central abdomen. Abdominal incision looks well healed. NEUROLOGICAL: Awake and alert. Cranial nerves II through XII grossly intact. Motor and sensory grossly within normal limits. Normal speech (Augusto Glass MD R2) A/P Assessment and Plan Ms. Rogers is a pleasant 66-year-old female, that presented with 6 days of abdominal pain, nausea, and persistent vomiting. She had a history of diverticulitis with temporary ileostomy and was known to the colorectal surgery team. She presented with high output ileostomy and metabolic acidosis. Currently, she is status post exploratory laparotomy with segmental small bowel resection and closure of ileostomy performed on 01/22. She developed right quadrant abdominal pain on 02/04 and hypotension with systolic BP down to 71. A HaliCAT was called and pt received a 500L NS bolus. A CT scan of her abdomen was performed which shows a 3cm hyperdense collection adjacent to surgerized abdomen that may represent a hematoma or abscess. Contacted Dr. King who reviewed the images - most likely a hematoma. Patient was transfused 2 units packed red blood cells with appropriate response in hemoglobin and hematocrit. Currently she is stable. Discharge Planning Discharge pending clinical improvement. As of 02/07, colorectal surgery is okay with discharging this patient. Colorectal recommends follow-up with Dr. King 2 weeks after discharge. She'll need follow-up with nephrology and urology. PT recommends PT at rehabilitation. Patient has been accepted at [facility] for long-term care; A 3008 has been signed, and her pain medications are in the chart. (Augusto Glass MD R2) Attending Attestation Patient seen and examined. Case reviewed and discussed. Agree with plan of care as discussed with me and documented in the resident note. (Ana Solomon MD) Problem List: (1) Diarrhea Status: Acute Plan: Formed stool today 02/09. Hemoglobin has remained stable. Colorectal surgery on board. C diff toxin PCR unable to obtain given formed stool. Continue IV fluids as below. (2) Anemia Status: Acute Plan: Currently stable. Continue to monitor. Repeat CT shows no significant change. No evidence of active bleeding. Hemoccult positive stool on 02/06/17. No blood in stool per patient. (3) Abdominal hematoma Status: Acute Plan: CT abdomen/pelvis on 02/[address] on 02/06 stable exam. (4) History of diverticulitis Status: Chronic Plan: Patient has history of diverticulitis. She developed high-output ileostomy. She is now status post exploratory laparotomy with segmental small bowel resection and closure of ileostomy. Operative day on 01/22 Diet advanced per surgery Colorectal surgery following (Dr. King); as of 02/07, colorectal surgery has cleared the patient for discharge. Pain management: Percocet 2 tab by mouth every 4 hours pain 6-10, hold for SBP < 85 and/or DBP <55 Bowel regimen: Reglan 10 mg 3 times a day before meals, Carafate 1 g by mouth every 8 hours, Zofran for nausea, docusate 1 tab by mouth twice a day Out of bed to chair and physical therapy (5) Acute on chronic renal insufficiency Status: Acute Plan: Currently creatinine is increasing 1.25-->1.73 over the past 4 days. Bicarbonate has been stable at 26.1. Patient has not been getting KCL over the past 2 days, potassium stable at 4.1, chloride increased from 107 to108. We'll continue to monitor. Likely related to increased diarrhea/dehydration. Normal saline at 80 ML per hour, was refused on 02/08/2017. Encourage adequate by mouth intake. Nephrology previously consulted on the patient but has signed off. -Patient is to follow-up with nephrology as an outpatient. An outpatient recommended Litholink study as medullary sponge kidney can also be associated with hypocitraturia, hyperoxaluria. (6) COPD (chronic obstructive pulmonary disease) Status: Chronic Plan: -Albuterol 2.5 mg inhaler q 2 hr prn -Duonebs every 4 hours when necessary for shortness of breath or wheezing (7) Physical deconditioning Status: Acute Plan: -Physical therapy consulted to assist with out of bed and exercises -Physical therapy recommends discharge to rehabilitation facility (8) Osteoporosis Status: Chronic Plan: -Hold bisphosphonate therapy at this time -Will restart once tolerating by mouth therapy and nausea has improved -Fall precautions in place (9) Depression Status: Chronic Plan: Resume home psychotropic meds as follows: -Bupropion 100 mg tablets twice a day -Prozac 10 mg daily -Trazodone 100 mg daily at bedtime (10) HTN (hypertension) Status: Chronic Plan: Home medication: Amlodipine 10 mg daily Currently holding blood pressure medications secondary to hypotension. (11) Shingles rash Status: Acute Plan: Improving -Continue valacyclovir 100 mg by mouth every 8 hours (started 02/03, today is day #5 of 7) (12) Metabolic acidosis Status: Resolved Plan: Patient presented with normal anion gap metabolic acidosis suspected to be hyperchloremic metabolic acidosis due to loss from excessive ostomy output. -Status post ileostomy takedown on 01/20 -Metabolic derangements have improved (13) UTI (urinary tract infection) Status: Resolved Plan: Urine micro growing group D enterococcus and yeast on repeat urine culture -Yeast Kayla krusei intrinsically resistant to Fluconazole - most likely contaminant -DC ampicillin 1 g every 12h IV, patient has received 4 doses (14) FEN/ppx Status: Chronic Plan: Fluids: NS @ 80 ml/hr - d/c'ed 02/08. Electrolytes: Monitoring and will replete as needed Nutrition: Regular diet per surgery DVT prophylaxis: Heparin 5000 units every 8 hours - holding due to abdominal hematoma . wdw Dr. Solomon. sdw Dr. Rodriguez. (Augusto Glass MD R2) Problem Qualifiers (1) Anemia: Qualified Code: D64.9 - Anemia, unspecified type Augusto Glass MD R2 Feb 09, 2017 10:05 Ana Solomon MD Feb 13, 2017 12:49
[2017-02-09 12:35] VITALS: BP 85/50; PULSE 82; RESP 18; TEMP 97.1; O2SAT 93
[2017-02-09 16:27] VITALS: BP 90/54; PULSE 83; RESP 18; TEMP 97.3; O2SAT 94
[2017-02-09] MEDS: PANTOPRAZOLE SOD 40 MG DELAYED RELEASE TAB PO SCH (16:46)
[2017-02-09 20:00] VITALS: BP 98/57; PULSE 89; RESP 16; TEMP 98.5; O2SAT 95
--- NOTE | 2017-02-09 20:11 | HHI.PR ---
Subjective Remarks C/R Surg - POD afebrile, VSS - Bp better +BM/flatus UO good benito PO c/o pain rt side/back - controlled Objective - Vital Signs Date Time Temp Pulse Resp B/P Pulse Ox O2 Delivery O2 Flow Rate FiO2 02/09/17 16:27 97.3 83 18 90/54 94 Result Diagram: 02/09/1720 02/09/17519 Objective Remarks PE alert Abd - soft, minor induration along wound, min tympany A/P Assessment and Plan Imp: OOB PT reg diet Hgb stable dc plans Steven King MD Feb 09, 2017 20:11
[2017-02-09] MEDS: traZODone HCL 100 MG TAB PO SCH (21:46)
[2017-02-10 01:03] VITALS: BP 96/56; PULSE 80; RESP 16; TEMP 97.4; O2SAT 94
[2017-02-10] MEDS: oxyCODONE/ACETAMINOPHEN 10 MG/325 MG TAB PO PRN ×3 (02:14→10:25)
[2017-02-10 04:22] VITALS: BP 96/58; PULSE 81; RESP 16; TEMP 99.8; O2SAT 91
[2017-02-10] MEDS: valACYclovir HCL 500 MG TAB PO SCH (06:23)
[2017-02-10 06:43] LABS: AUTOMATED NEUTROPHIL # 5.6 TH/MM3 (1.8-7.7); BASOPHIL # 0.1 TH/MM3 (0-0.2); BASOPHIL % 0.7 % (0.0-2.0); EOSINOPHIL # 0.3 TH/MM3 (0-0.4); EOSINOPHIL % 3.4 % (0.0-4.0); HEMATOCRIT 32.6 % (35.0-46.0); HEMO FLAGS DIFF FINAL; LYMPH % 22.6 % (9.0-44.0); LYMPHOCYTE # 1.9 TH/MM3 (1.0-4.8); MEAN CORPUSCULAR HEMOGLOBIN 30.9 PG (27.0-34.0); MEAN CORPUSCULAR HGB CONC 32.8 % (32.0-36.0); MONO % 7.7 % (0.0-8.0); NEUT % 65.6 % (16.0-70.0); PLATELET COUNT 353 TH/MM3 (150-450); RED BLOOD COUNT 3.47 MIL/MM3 (4.00-5.30); RED CELL DISTRIBUTION WIDTH 15.4 % (11.6-17.2); WHITE BLOOD COUNT 8.5 TH/MM3 (4.0-11.0)
[2017-02-10 07:12] LABS: BICARBONATE 26.8 MEQ/L (21.0-32.0); POTASSIUM 4.2 MEQ/L (3.5-5.1)
[2017-02-10 08:10] VITALS: BP 82/52; PULSE 81; RESP 19; TEMP 98.7; O2SAT 91
[2017-02-10] MEDS: SODIUM CHLORIDE 0.9% FLUSH 5 ML FLUSH IVF SCH (09:00)
[2017-02-10] MEDS: buPROPion HCL 100 MG TAB PO SCH (09:14)
[2017-02-10] MEDS: FLUoxetine HCL 10 MG CAP PO SCH (09:14)
[2017-02-10] MEDS: SUCRALFATE 1 GM/10 ML CUP PO SCH (09:14)
[2017-02-10] MEDS ORDERED: MIDO5TAB PO (12:22)
--- NOTE | 2017-02-10 12:27 | HHI.FPPN ---
Subjective Remarks Patient's today is that she would like salt in her diet. She has been walking around without dizziness. She notes that she has been having low blood pressures but they have been asymptomatic. She denies any issues with bowel or bladder function. No nausea, vomiting, diarrhea, constipation. No fevers or chills. She drank a lot of apple juice in the last 24 hours, noting that it has been at least one to 2 liters. (Sun Rodriguez MD R1) Objective Vitals Vital Signs Date Time Temp Pulse Resp B/P Pulse Ox O2 Delivery O2 Flow Rate FiO2 02/10/17 08:10 98.7 81 19 82/52 91 02/10/17 04:22 99.8 81 16 96/58 91 02/10/17 01:03 97.4 80 16 96/56 94 02/09/17 20:00 98.5 89 16 98/57 95 02/09/17 16:27 97.3 83 18 90/54 94 02/09/17 12:35 97.1 82 18 85/50 93 I/O 02/09/17 02/09/17 02/09/17 02/10/17 02/10/17 02/10/17 07:00 15:00 23:00 07:00 15:00 23:00 Intake Total 237 ml 240 ml Balance 237 ml 240 ml Intake Oral 237 ml 240 ml # Voids 5 3 2 # Bowel Movements 1 3 (Sun Rodriguez MD R1) Result Diagram: 02/10/17 0615 02/10/17 0615 Objective Remarks GENERAL: Pale-appearing, thin female. Walks around the room comfortably. SKIN: Skin intact. Cool and dry. No notable lower extremity edema. HEAD: Normocephalic, atraumatic. EYES: Pupils equal round and reactive. Extraocular motions intact. No scleral icterus. No injection or drainage ENT: Mucous membranes moist. Uvula is midline. CARDIOVASCULAR: Regular rate and rhythm without murmurs RESPIRATORY: CTAB. Breath sounds equal bilaterally but poor effort. No wheezes, rales, or rhonchi GASTROINTESTINAL: Positive bowel sounds. Abdomen is nontender. Abdominal incision looks well healed. NEUROLOGICAL: Awake and alert. Cranial nerves II through XII grossly intact. Motor and sensory grossly within normal limits. Normal speech Medications and IVs Reported Meds & Active Scripts Active Midodrine 5 Mg Tab 5 Mg PO TID Lauren-Colace (Sennosides-Docusate Sodium) 8.6-50 Mg Tab 2 Tab PO DAILY PRN Percocet (Oxycodone-Acetaminophen) 10-325 mg Tab 1 Tab PO Q6H PRN Midodrine 10 Mg Tab 10 Mg PO BID PRN Gabapentin 100 Mg Cap 100 Mg PO BID Potassium Chloride Microencaps 20 Meq Tab 40 Meq PO Q12HR Ferrous Sulfate 325 Mg Tab 325 Mg PO DAILY Trazodone (Trazodone HCl) 100 Mg Tab 100 Mg PO HS [shower chair] Ut DAILY Aspirin EC (Aspirin) 81 Mg Tabdr 81 Mg PO DAILY Valacyclovir (Valacyclovir HCl) 1 Gm Tab 1,000 Mg PO BID Bupropion HCl 100 Mg Tab 100 Mg PO BID Prozac (Fluoxetine HCl) 10 Mg Cap 10 Mg PO DAILY Pravastatin 80 Mg Tab 80 Mg PO HS Reported Pravastatin 80 Mg Tab 80 Mg PO DAILY Fosamax (Alendronate Sodium) 70 Mg Tab 70 Mg PO Q7D TAKES ON SUNDAYS (Sun Rodriguez MD R1) Urinary Catheter: No (Sun Rodriguez MD R1) Vascular Central Line Catheter: Yes Assessment to: Remove Date of Removal: Feb 10, 2017 Line: PICC (Sun Rodriguez MD R1) A/P Assessment and Plan Ms. Rogers is a pleasant 66-year-old female, that presented with 6 days of abdominal pain, nausea, and persistent vomiting. She had a history of diverticulitis with temporary ileostomy and was known to the colorectal surgery team. She presented with high output ileostomy and metabolic acidosis. Currently, she is status post exploratory laparotomy with segmental small bowel resection and closure of ileostomy performed on 01/22. She developed right quadrant abdominal pain on 02/04 and hypotension with systolic BP down to 71. A HaliCAT was called and pt received a 500L NS bolus. A CT scan of her abdomen was performed which shows a 3cm hyperdense collection adjacent to surgerized abdomen that may represent a hematoma or abscess. Contacted Dr. King who reviewed the images - most likely a hematoma. Patient was transfused 2 units packed red blood cells with appropriate response in hemoglobin and hematocrit. H &H has been stable. Hypotension at baseline-patient previously on midodrine which was held, restarted 02/10/17. Discharge Planning Discharge today to [facility] long-term care. As of 02/07, colorectal surgery cleared patient for discharge. She is to follow-up with colorectal (Dr. King) 2 weeks after discharge. She'll need follow-up with nephrology and urology in 2 weeks as well. PT recommends PT at rehabilitation. [id number] has been signed, and her pain medication is in the chart. (Sun Rodriguez MD R1) Attending Attestation Patient seen and examined. Case reviewed and discussed. Agree with plan of care as discussed with me and documented in the resident note. (Ana Solomon MD) Problem List: (1) Diarrhea Status: Acute Plan: Formed stools reported at discharge. Hemoglobin has remained stable. Colorectal surgery on board. C diff toxin PCR unable to obtain given formed stool. (2) Anemia Status: Acute Plan: Currently stable. Continue to monitor as outpatient Repeat CT shows no significant change. No evidence of active bleeding. Hemoccult positive stool on 02/06/17. No blood in stool per patient. (3) Abdominal hematoma Status: Acute Plan: CT abdomen/pelvis on 02/04 showed 3cm hematoma. Repeat CT on 02/06 stable exam. (4) History of diverticulitis Status: Chronic Plan: Patient has history of diverticulitis. She developed high-output ileostomy. She is now status post exploratory laparotomy with segmental small bowel resection and closure of ileostomy. Operative day on 01/22 Diet advanced per surgery, now on regular diet Colorectal surgery following (Dr. King); as of 02/07, colorectal surgery has cleared the patient for discharge. Pain management: Percocet 2 tab by mouth every 4 hours pain 6-10, hold for SBP < 85 and/or DBP <55 Bowel regimen: Reglan 10 mg 3 times a day before meals, Carafate 1 g by mouth every 8 hours, Zofran for nausea, docusate 1 tab by mouth twice a day Out of bed to chair and physical therapy (5) Acute on chronic renal insufficiency Status: Acute Plan: Currently creatinine 1.51. Bicarbonate has been stable at approximately 26. Potassium and chloride stable at discharge Likely related to increased diarrhea/dehydration. Normal saline at 80 ML per hour, was refused on 02/08/2017. Encouraged adequate by mouth intake, which patient cooperated with. Nephrology previously consulted on the patient but has signed off. -Patient is to follow-up with nephrology as an outpatient. An outpatient recommended Litholink study as medullary sponge kidney can also be associated with hypocitraturia, hyperoxaluria. (6) COPD (chronic obstructive pulmonary disease) Status: Chronic Plan: -Albuterol 2.5 mg inhaler q 2 hr prn -Duonebs every 4 hours when necessary for shortness of breath or wheezing (7) Physical deconditioning Status: Acute Plan: -Physical therapy consulted to assist with out of bed and exercises -Physical therapy recommends discharge to rehabilitation facility (8) Osteoporosis Status: Chronic Plan: -Hold bisphosphonate therapy at this time -Will restart once tolerating by mouth therapy and nausea has improved -Fall precautions in place (9) Depression Status: Chronic Plan: Resume home psychotropic meds as follows: -Bupropion 100 mg tablets twice a day -Prozac 10 mg daily -Trazodone 100 mg daily at bedtime (10) HTN (hypertension) Status: Chronic Plan: Home medication: Amlodipine 10 mg daily Currently holding blood pressure medications secondary to hypotension. (11) Shingles rash Status: Acute Plan: Improving -Continue valacyclovir 100 mg by mouth every 8 hours (started 02/03, today is day #5 of 7) (12) Metabolic acidosis Status: Resolved Plan: Patient presented with normal anion gap metabolic acidosis suspected to be hyperchloremic metabolic acidosis due to loss from excessive ostomy output. -Status post ileostomy takedown on 01/20 -Metabolic derangements have improved (13) UTI (urinary tract infection) Status: Resolved Plan: Urine micro growing group D enterococcus and yeast on repeat urine culture -Yeast Kayla krusei intrinsically resistant to Fluconazole - most likely contaminant -DC ampicillin 1 g every 12h IV, patient has received 4 doses (14) FEN/ppx Status: Chronic Plan: Fluids: NS @ 80 ml/hr - d/c'ed 02/08. Electrolytes: Monitoring and will replete as needed Nutrition: Regular diet per surgery DVT prophylaxis: Heparin 5000 units every 8 hours - held due to abdominal hematoma. DW Dr. Solomon, SDW Dr. Harvinder Rodriguez (Sun Rodriguez MD R1) Problem Qualifiers (1) Anemia: Qualified Code: D64.9 - Anemia, unspecified type Sun Rodriguez MD R1 Feb 10, 2017 12:27 Ana Solomon MD Feb 13, 2017 12:48
[2017-02-10 12:41] VITALS: BP 81/51; PULSE 81; RESP 17; TEMP 97.6; O2SAT 93
[2017-02-10] MEDS ORDERED: MIDODRINE 5 MG TAB PO SCH (13:00)
--- NOTE | 2017-02-11 22:43 | HHI.DS ---
Sun Rodriguez MD R1 02/11/17 2243: Discharge Summary Admission Date Jan 17, 2017 at 21:39 Discharge Date: Feb 10, 2017 Admitting Diagnosis Acute on Chronic Renal Failure; N/V (1) Diarrhea Diagnosis: Principal Plan: Formed stools reported at discharge. Hemoglobin has remained stable. Colorectal surgery on board. C diff toxin PCR unable to obtain given formed stool. (2) Anemia Diagnosis: Principal Plan: Currently stable. Continue to monitor as outpatient Repeat CT shows no significant change. No evidence of active bleeding. Hemoccult positive stool on 02/06/17. No blood in stool per patient. (3) Abdominal hematoma Diagnosis: Principal Plan: CT abdomen/pelvis on 02/04 showed 3cm hematoma. Repeat CT on 02/06 stable exam. (4) History of diverticulitis Diagnosis: Principal Plan: Patient has history of diverticulitis. She developed high-output ileostomy. She is now status post exploratory laparotomy with segmental small bowel resection and closure of ileostomy. Operative day on 01/22 Diet advanced per surgery, now on regular diet Colorectal surgery following (Dr. King); as of 02/07, colorectal surgery has cleared the patient for discharge. Pain management: Percocet 2 tab by mouth every 4 hours pain 6-10, hold for SBP < 85 and/or DBP <55 Bowel regimen: Reglan 10 mg 3 times a day before meals, Carafate 1 g by mouth every 8 hours, Zofran for nausea, docusate 1 tab by mouth twice a day Out of bed to chair and physical therapy (5) Acute on chronic renal insufficiency Diagnosis: Principal Plan: Currently creatinine 1.51. Bicarbonate has been stable at approximately 26. Potassium and chloride stable at discharge Likely related to increased diarrhea/dehydration. Normal saline at 80 ML per hour, was refused on 02/08/2017. Encouraged adequate by mouth intake, which patient cooperated with. Nephrology previously consulted on the patient but has signed off. -Patient is to follow-up with nephrology as an outpatient. An outpatient recommended Litholink study as medullary sponge kidney can also be associated with hypocitraturia, hyperoxaluria. (6) COPD (chronic obstructive pulmonary disease) Diagnosis: Secondary Plan: -Albuterol 2.5 mg inhaler q 2 hr prn -Duonebs every 4 hours when necessary for shortness of breath or wheezing (7) Physical deconditioning Diagnosis: Secondary Plan: -Physical therapy consulted to assist with out of bed and exercises -Physical therapy recommends discharge to rehabilitation facility (8) Osteoporosis Diagnosis: Secondary Plan: -Hold bisphosphonate therapy at this time -Will restart once tolerating by mouth therapy and nausea has improved -Fall precautions in place (9) Depression Diagnosis: Secondary Plan: Resume home psychotropic meds as follows: -Bupropion 100 mg tablets twice a day -Prozac 10 mg daily -Trazodone 100 mg daily at bedtime (10) HTN (hypertension) Diagnosis: Secondary Plan: Home medication: Amlodipine 10 mg daily Currently holding blood pressure medications secondary to hypotension. (11) Shingles rash Plan: Improving -Continue valacyclovir 100 mg by mouth every 8 hours (started 02/03, today is day #5 of ) (12) Metabolic acidosis Diagnosis: Principal Plan: Patient presented with normal anion gap metabolic acidosis suspected to be hyperchloremic metabolic acidosis due to loss from excessive ostomy output. -Status post ileostomy takedown on 01/20 -Metabolic derangements have improved (13) UTI (urinary tract infection) Diagnosis: Principal Plan: Urine micro growing group D enterococcus and yeast on repeat urine culture -Yeast Kayla krusei intrinsically resistant to Fluconazole - most likely contaminant -DC ampicillin 1 g every 12h IV, patient has received 4 doses [facility], Critical Care, Nephrology Brief History Mrs. Walker is a pleasant 66 y/o female, who presents to [facility] with 6 days of nausea and vomiting (Thursday01/10/2017). Her symptoms started with generalized fatigue. Then, gradually became nauseous over the next several days. Her first episode of emesis was 6 days ago. During the beginning of her symptoms, she was vomiting 2-3 x per day. The emesis was described as clear and green in color. She reports small amounts of emesis since this time. For a couple of days she did not vomit but did feel nauseous, and had dry heaves. She has a colostomy bag, and this has been causing her discomfort for 6 months. This pain has been getting worse over the past several weeks. Her current abdominal pain is located over her umbilicus, and suprapubic. The pain is a 8/ 10 pain, constant. During the past 6 days she reports difficulty even drinking fluids. She denies using antibiotics recently. ROS: Fevers (subjective, chills+), sometimes gets blurry vision, nasal congestion, less frequent urination. Denies sore throat, shortness of breath, chest pain, headaches, no palpitations , no dysuria, no unilateral weakness or numbness, denies rashes. She denies pets. David the edge finisher of the house has not felt well. Stool output -- some today, minimal non bloody. Bad food -- denies. Ever happen before -- denies. No new medications. CBC/BMP: 02/10/17 0615 02/10/17 0615 Significant Findings Laboratory Tests Test 02/09/17 02/10/17 05:20 06:15 Red Blood Count 3.46 MIL/MM3 3.47 MIL/MM3 (4.00-5.30) (4.00-5.30) Hemoglobin 10.8 GM/DL 10.7 GM/DL (11.6-15.3) (11.6-15.3) Hematocrit 32.1 % 32.6 % (35.0-46.0) (35.0-46.0) Monocytes (%) (Auto) 9.0 % (0.0-8.0) Eosinophils (%) (Auto) 5.2 % (0.0-4.0) Chloride Level 108 MEQ/L (98-107) Blood Urea Nitrogen 25 MG/DL (7-18) 22 MG/DL (7-18) Creatinine 1.73 MG/DL 1.51 MG/DL (0.50-1.00) (0.50-1.00) Estimat Glomerular Filtration 29 ML/MIN (>89) 34 ML/MIN (>89) Rate Calcium Level 8.1 MG/DL 8.2 MG/DL (8.5-10.1) (8.5-10.1) Aspartate Amino Transf 8 U/L (15-37) (AST/SGOT) Total Protein 5.2 GM/DL (6.4-8.2) Albumin 2.2 GM/DL (3.4-5.0) Imaging Last Impressions Abdomen/Pelvis CT 02/06/17 0000 Signed Impressions: Service Date/Time: Monday, February 06, 2017 18:23 - CONCLUSION: Bowel surgery in the right upper quadrant and there is a 3 cm adjacent collection, nonspecific but could be a walled off leak. It is not significantly changed. There is no evidence of active bleeding anywhere. There is mild induration of the surrounding soft tissues including the adjacent anterior abdominal wall. Nabeel Padgett MD Abdomen X-Ray 02/04/17 0000 Signed Impressions: Service Date/Time: Saturday, February 04, 2017 14:59 - CONCLUSION: Fairly benign-appearing abdomen. No evidence of obstruction or other acute process. Chronic findings as above. Nabeel Padgett MD Chest X-Ray 01/29/17 0000 Signed Impressions: Service Date/Time: January 11:41 - CONCLUSION: 1. PICC in good position. Ervin Lloyd MD Upper GI Series 01/27/17 0000 Signed Impressions: Service Date/Time: Friday, January 27, 2017 09:35 - CONCLUSION: Unremarkable upper gastrointestinal examination limited due to patient mobility and difficulty swallowing large amounts of Gastrografin. Jonas Terry MD Renal Ultrasound 01/18/17 0000 Signed Impressions: Service Date/Time: Wednesday, January 18, 2017 18:05 - CONCLUSION: 1. Extensive medullary nephrocalcinosis. Atrophic kidneys. No hydronephrosis. Jerald Lau MD Head CT 01/17/173 Signed Impressions: Service Date/Time: Tuesday, January 17, 2017 23:21 - CONCLUSION: No evidence of acute intracranial pathology. No masses are identified. Sushant Woods MD PE at Discharge GENERAL: Pale-appearing, thin female. Walks around the room comfortably. SKIN: Skin intact. Cool and dry. No notable lower extremity edema. HEAD: Normocephalic, atraumatic. EYES: Pupils equal round and reactive. Extraocular motions intact. No scleral icterus. No injection or drainage ENT: Mucous membranes moist. Uvula is midline. CARDIOVASCULAR: Regular rate and rhythm without murmurs RESPIRATORY: CTAB. Breath sounds equal bilaterally but poor effort. No wheezes, rales, or rhonchi GASTROINTESTINAL: Positive bowel sounds. Abdomen is nontender. Abdominal incision looks well healed. NEUROLOGICAL: Awake and alert. Cranial nerves II through XII grossly intact. Motor and sensory grossly within normal limits. Normal speech Hospital Course Ms. Rogers is a pleasant 66-year-old female, that presented with 6 days of abdominal pain, nausea, and persistent vomiting. She had a history of diverticulitis with temporary ileostomy and was known to the colorectal surgery team. She presented with high output ileostomy and metabolic acidosis. C diff negative 01/18. She is status post exploratory laparotomy with segmental small bowel resection and closure of ileostomy performed on 01/22. She developed right quadrant abdominal pain on 02/04 and hypotension with systolic BP down to 71. A HaliCAT was called and pt received a 500L NS bolus. A CT scan of her abdomen was performed which showed a 3cm hyperdense collection adjacent to surgerized abdomen that may represent a hematoma or abscess. Dr. King was contacted and he reviewed the images, deciding that the fluid collection most likely a hematoma. She was transfused 2 units packed red blood cells with appropriate response in hemoglobin and hematocrit. The hematoma was stable as seen on repeat CT scan. Was cleared for discharge by colorectal surgery to [facility] for long-term care. Discharge was delayed due to metabolic abnormalities (i.e. hyperkalemia) and poor PO intake. She does have history of hypotension, was on morphine as outpatient which was hold, was also on midodrine as outpatient, and this was restarted prior to discharge (patient asymptomatic). Patient was discharged afternoon of 02/10 in stable condition. Pt Condition on Discharge: Good Discharge Disposition: Discharge to SNF Discharge Instructions DIET: Follow Instructions for: As Tolerated, No Restrictions Activities you can perform: Regular-No Restrictions Follow up Referrals: Appointment for Follow Up - 2 Weeks with Steven King MD Nephrology - 2 Weeks with Edgardo Mccann MD Physician - 2 Weeks Urology - 2 Weeks New Orders: BASIC METABOLIC PROF - 3-5 Days CBC WITH DIFF - 3-5 Days New Medications: Midodrine (Midodrine) 5 Mg Tab 5 MG PO TID Control Low Blood Pressure #90 Ref 0 TAB Sennosides-Docusate Sodium (Lauren-Colace) 8.6-50 Mg Tab 2 TAB PO DAILY PRN CONSTIPATION #60 Ref 0 TAB Continued Medications: Alendronate (Fosamax) 70 Mg Tab 70 MG PO Q7D TAKES ON SUNDAYS Osteoporosis Treatment TAB Aspirin DR (Aspirin EC) 81 Mg Tabdr 81 MG PO DAILY #90 Ref 6 TAB Bupropion HCl (Bupropion HCl) 100 Mg Tab 100 MG PO BID Control Depression #180 Ref 6 TAB Ferrous Sulfate (Ferrous Sulfate) 325 Mg Tab 325 MG PO DAILY Nutritional Supplement #30 Ref 6 TAB Fluoxetine (Prozac) 10 Mg Cap 10 MG PO DAILY #90 Ref 6 CAP Gabapentin (Gabapentin) 100 Mg Cap 100 MG PO BID #60 Ref 6 CAP Midodrine (Midodrine) 10 Mg Tab 10 MG PO BID PRN SYMPTOMATIC HYPOTENSION #90 Ref 0 TAB Oxycodone-Acetaminophen (Percocet) 10-325 mg Tab 1 TAB PO Q6H PRN PAIN #60 Ref 0 TAB (This prescription has been renewed) Potassium Chloride Microencaps (Potassium Chloride Microencaps) 20 Meq Tab 40 MEQ PO Q12HR #60 Ref 1 TAB Pravastatin (Pravastatin) 80 Mg Tab 80 MG PO HS Cholesterol Management #90 Ref 6 TAB Pravastatin (Pravastatin) 80 Mg Tab 80 MG PO DAILY Cholesterol Management Ref 0 TAB Trazodone (Trazodone) 100 Mg Tab 100 MG PO HS Control Depression #90 Ref 6 TAB Valacyclovir (Valacyclovir) 1 Gm Tab 1000 MG PO BID Mgmt Viral Infection #20 Ref 6 TAB Discontinued Medications: Amlodipine (Amlodipine) 10 Mg Tab 10 MG PO DAILY Blood Pressure Management Ref 0 TAB Sodium Bicarbonate (Sodium Bicarbonate) 325 Mg Tab 325 MG PO Q12HR #60 TAB Ana Solomon MD 02/13/17 1248: Discharge Summary CBC/BMP: 02/10/1715 02/10/17 0615 Discharge Instructions Follow up Referrals: Appointment for Follow Up - 2 Weeks with Steven King MD Nephrology - 2 Weeks with Edgardo Mccann MD Physician - 2 Weeks Urology - 2 Weeks New Orders: BASIC METABOLIC PROF - 3-5 Days CBC WITH DIFF - 3-5 Days New Medications: Midodrine (Midodrine) 5 Mg Tab 5 MG PO TID Control Low Blood Pressure #90 Ref 0 TAB Sennosides-Docusate Sodium (Lauren-Colace) 8.6-50 Mg Tab 2 TAB PO DAILY PRN CONSTIPATION #60 Ref 0 TAB Continued Medications: Alendronate (Fosamax) 70 Mg Tab 70 MG PO Q7D TAKES ON SUNDAYS Osteoporosis Treatment TAB Aspirin DR (Aspirin EC) 81 Mg Tabdr 81 MG PO DAILY #90 Ref 6 TAB Bupropion HCl (Bupropion HCl) 100 Mg Tab 100 MG PO BID Control Depression #180 Ref 6 TAB Ferrous Sulfate (Ferrous Sulfate) 325 Mg Tab 325 MG PO DAILY Nutritional Supplement #30 Ref 6 TAB Fluoxetine (Prozac) 10 Mg Cap 10 MG PO DAILY #90 Ref 6 CAP Gabapentin (Gabapentin) 100 Mg Cap 100 MG PO BID #60 Ref 6 CAP Midodrine (Midodrine) 10 Mg Tab 10 MG PO BID PRN SYMPTOMATIC HYPOTENSION #90 Ref 0 TAB Oxycodone-Acetaminophen (Percocet) 10-325 mg Tab 1 TAB PO Q6H PRN PAIN #60 Ref 0 TAB (This prescription has been renewed) Potassium Chloride Microencaps (Potassium Chloride Microencaps) 20 Meq Tab 40 MEQ PO Q12HR #60 Ref 1 TAB Pravastatin (Pravastatin) 80 Mg Tab 80 MG PO HS Cholesterol Management #90 Ref 6 TAB Pravastatin (Pravastatin) 80 Mg Tab 80 MG PO DAILY Cholesterol Management Ref 0 TAB Trazodone (Trazodone) 100 Mg Tab 100 MG PO HS Control Depression #90 Ref 6 TAB Valacyclovir (Valacyclovir) 1 Gm Tab 1000 MG PO BID Mgmt Viral Infection #20 Ref 6 TAB Discontinued Medications: Amlodipine (Amlodipine) 10 Mg Tab 10 MG PO DAILY Blood Pressure Management Ref 0 TAB Sodium Bicarbonate (Sodium Bicarbonate) 325 Mg Tab 325 MG PO Q12HR #60 TAB Sun Rodriguez MD R1 Feb 11, 2017 22:43 Ana Solomon MD Feb 13, 2017 12:48
== END 2017-02-10 13:32 | DRG 987 ==
LOC: NEPE 17:39 → NEDA 21:39 → NEPHCDU 01-18 02:32 → N05A 01-19 20:34
PROVIDERS: ADMIT Family Medicine; ATTEND Family Medicine
PROC: 0DJD8ZZ Inspection of Lower Intestinal Tract, Via Natural or Artificial Opening Endoscopic (ICD-10-PCS; 2017-01-20)
PROC: 0DBB4ZZ Excision of Ileum, Percutaneous Endoscopic Approach (ICD-10-PCS; principal; 2017-01-20 16:08)
PROC: 30233N1 Transfusion of Nonautologous Red Blood Cells into Peripheral Vein, Percutaneous Approach (ICD-10-PCS; 2017-02-05)
DX: N17.9 Acute kidney failure, unspecified (principal); K85.90 Acute pancreatitis without necrosis or infection, unspecified; E87.2 Acidosis; D68.61 Antiphospholipid syndrome; E87.8 Other disorders of electrolyte and fluid balance, not elsewhere classified; K56.7 Ileus, unspecified; N39.0 Urinary tract infection, site not specified; Z68.1 Body mass index [BMI] 19.9 or less, adult; Q61.5 Medullary cystic kidney; K91.870 Postprocedural hematoma of a digestive system organ or structure following a digestive system procedure; J44.9 Chronic obstructive pulmonary disease, unspecified; N18.3 Chronic kidney disease, stage 3 (moderate); B96.20 Unspecified Escherichia coli [E. coli] as the cause of diseases classified elsewhere; I12.9 Hypertensive chronic kidney disease with stage 1 through stage 4 chronic kidney disease, or unspecified chronic kidney disease; E87.5 Hyperkalemia; E86.0 Dehydration; R63.4 Abnormal weight loss; R63.0 Anorexia; E87.6 Hypokalemia; K52.9 Noninfective gastroenteritis and colitis, unspecified; E83.59 Other disorders of calcium metabolism; N29 Other disorders of kidney and ureter in diseases classified elsewhere; G89.29 Other chronic pain; D64.89 Other specified anemias; M54.5 Low back pain; M81.0 Age-related osteoporosis without current pathological fracture; F32.9 Major depressive disorder, single episode, unspecified; F41.9 Anxiety disorder, unspecified; Y92.239 Unspecified place in hospital as the place of occurrence of the external cause; Y83.2 Surgical operation with anastomosis, bypass or graft as the cause of abnormal reaction of the patient, or of later complication, without mention of misadventure at the time of the procedure; Y73.3 Surgical instruments, materials and gastroenterology and urology devices (including sutures) associated with adverse incidents; Z43.2 Encounter for attention to ileostomy; Z86.14 Personal history of Methicillin resistant Staphylococcus aureus infection; Z86.718 Personal history of other venous thrombosis and embolism; Z87.442 Personal history of urinary calculi; Z87.891 Personal history of nicotine dependence
CPT/HCPCS: 36430; 36569; 36600; 70450; 71010; 71020; 74000; 74020; 74176; 74177; 74240; 76775; 76937; 80048; 80053; 81001; 82272; 82306; 82340; 82805; 83605; 83615; 83690; 83735; 83970; 84100; 84155; 84478; 84484; 85014; 85018; 85025; 85027; 85610; 85652; 85730; 86160; 86850; 86900; 86901; 86920; 87040; 87077; 87086; 87106; 87186; 87205; 87328; 87329; 87425; 87493; 87506; 93005; 94150; 94640; 94664; 96361; 96374; 96375; C9113; J0131; J0290; J0610; J0690; J0696; J0744; J1100; J1130; J1170; J1642; J1644; J1885; J1956; J2250; J2270; J2405; J2765; J3010; J3475; J3480; J7030; J7040; J7050; J7120; J7611; P9016; Q0169; Q9963; Q9967

== ENCOUNTER → 2017-04-01 | Outpatient (CLI) | payer MEDICARE, MEDICAID ==
[~2017-04-01] MED LIST changes: +MIDO5TAB PO; -MORP1TAB25 PO; +PERI8.6T PO; -SODI325T PO
--- NOTE | 2017-04-01 14:43 | RADRPT ---
EXAM DATE/TIME: 04/01/2017 13:41 [facility] COMPARISON: No previous studies available for comparison. INDICATIONS : Upper abdominal pain; evalulate for liver cyst or abscess. ORAL CONTRAST: Prescribed oral contrast ingested. RADIATION DOSE: 9.96 CTDIvol (mGy) MEDICAL HISTORY : Renal failure, chronic. Hypertension. Enterovesical fistula. SURGICAL HISTORY : Appendectomy. Hysterectomy.Colostomy.Colostomy reversal. ENCOUNTER: Initial ACUITY: 1 week PAIN SCALE: 6/10 LOCATION: Bilateral upper quadrant TECHNIQUE: Volumetric scanning of the abdomen was performed. Using automated exposure control and adjustment of the mA and/or kV according to patient size, radiation dose was kept as low as reasonably achievable to obtain optimal diagnostic quality images. FINDINGS: LOWER LUNGS: The visualized lower lungs are clear. LIVER: There is a 1.5 cm cyst in the left lobe liver. No suspicious mass. No evidence of biliary ductal dila tation. The gallbladder is surgically absent. SPLEEN: Normal size without lesion. PANCREAS: Within normal limits. KIDNEYS: Kidneys appear end-stage, severely atrophic on the left and prominent medullary calcinosis bilaterall y. ADRENAL GLANDS: Within normal limits. AORTA/RETROPERITONEAL: There is no aneurysm or lymphadenopathy. BOWEL/MESENTERY: Anastomosis in the right upper quadrant. Possible mild wall thickening involving the colon diffusely. Correlate with clinical signs/symptoms of colitis. No dilated loops. MUSCULOSKELETAL: Within normal limits for patient age. CONCLUSION: Small left lobe liver cyst. End stage kidneys. Possible diffuse mild colonic wall thickening which may reflect colitis. Correlation recommended. Nabeel Martinez MD on April 01, 2017 at 14:26 Board Certified Radiologist. This report was verified electronically.
== END ==
LOC: HRAD 12:30
PROVIDERS: ATTEND Family Medicine
DX: K76.89 Other specified diseases of liver (principal); K75.0 Abscess of liver
CPT/HCPCS: 74150